=== PATIENT | male | born 1945 | race Caucasian/White ===

== ENCOUNTER → 2016-11-17 | Outpatient (CLI) | payer MEDICARE ==
[2016-11-17 11:42] LABS: Hemoglobin A1C 8.3 % (4.2-6.1)
== END | disposition home or self-care (01) ==
LOC: LABWHC1 09:15
PROVIDERS: ATTEND Family Medicine
DX: E11.65 Type 2 diabetes mellitus with hyperglycemia (principal)
CPT/HCPCS: 36415; 83036

== ENCOUNTER → 2017-03-12 | Outpatient (CLI) | payer MEDICARE ==
--- NOTE | 2017-03-12 16:34 | CT ---
EXAMINATION TYPE: CT brain wo con DATE OF EXAM: 03/12/2017 COMPARISON: NONE HISTORY: 71-year-old male confusion, significant weight loss TECHNIQUE: Examination was done in axial plane without intravenous contrast. Coronal and sagittal r econstructions performed. CT DLP: 1036.0 mGycm Automated exposure control for dose reduction was used. FINDINGS: There is no evidence of acute intracranial hemorrhage, acute ischemic changes, mass, mass-effect, or extra-axial fluid collection. There is no effacement of cerebral sulci or basal subarachnoid cister ns. There is no hydrocephalus. There is no midline shift. Dumont-white matter distinction is preserv ed. There is mild to moderate generalized cerebral cortical atrophy with moderate patchy periventricular and deep white matter hypodensities. Moderate mucosal thickening throughout the right maxillary sinus. Mastoid air cells well pneumatized. Orbits and globes appear intact. IMPRESSION: 1. No acute intracranial abnormality seen. 2. [id number] cerebral cortical atrophy and moderate patchy changes of chronic small vessel isc hemic disease. 3. Moderate chronic right maxillary sinus disease.
== END | disposition home or self-care (01) ==
LOC: RADCTMAIN 15:53
PROVIDERS: ATTEND Family Medicine
DX: G31.9 Degenerative disease of nervous system, unspecified (principal); G93.89 Other specified disorders of brain; J34.9 Unspecified disorder of nose and nasal sinuses
CPT/HCPCS: 70450

== ENCOUNTER → 2017-12-28 | Outpatient (CLI) | payer MEDICARE ==
[2017-12-28 11:41] LABS: Anion Gap 17 mmol/L; Blood Urea Nitrogen 34 mg/dL (9-20); Calcium 9.9 mg/dL (8.4-10.2); Carbon Dioxide 26 mmol/L (22-30); Chloride 102 mmol/L (98-107); Glucose 242 mg/dL (74-99); Potassium 5.2 mmol/L (3.5-5.1); Sodium 145 mmol/L (137-145)
[2017-12-28 12:17] LABS: PSA Annual Screen <0.10 ng/mL (0.00-4.00)
[2017-12-28 18:48] LABS: Hemoglobin A1C 6.3 % (4.0-6.0)
== END | disposition home or self-care (01) ==
LOC: LABWHC1 10:52
PROVIDERS: ATTEND Family Medicine
DX: C61 Malignant neoplasm of prostate (principal); E11.9 Type 2 diabetes mellitus without complications
CPT/HCPCS: 80048; 83036; 36415; G0103

== ENCOUNTER → 2018-04-02 | Outpatient (CLI) | payer MEDICARE ==
[2018-04-02 09:04] LABS: Albumin 4.1 g/dL (3.5-5.0); Calcium 9.4 mg/dL (8.4-10.2); Potassium 4.7 mmol/L (3.5-5.1); Total Bilirubin 0.5 mg/dL (0.2-1.3); Total Protein 6.7 g/dL (6.3-8.2)
== END | disposition home or self-care (01) ==
LOC: LABWHC1 08:08
PROVIDERS: ATTEND Family Medicine
DX: E78.5 Hyperlipidemia, unspecified (principal); E11.9 Type 2 diabetes mellitus without complications
CPT/HCPCS: 36415; 80053; 80061; 83036

== ENCOUNTER → 2018-04-25 | Outpatient (CLI) | payer MEDICARE ==
--- NOTE | 2018-04-25 11:09 | US ---
EXAMINATION TYPE: US kidneys/renal and bladder DATE OF EXAM: 04/25/2018 COMPARISON: NONE CLINICAL HISTORY: N18.3 Chronic kidney disease stage 3. EXAM MEASUREMENTS: Right Kidney: 11.4 x 4.9 x 5.7 cm Left Kidney: 11.0 x 5.5 x 5.5 cm Right Kidney: No hydronephrosis or masses seen Left Kidney: No hydronephrosis or masses seen Bladder: distended Bilateral Jets seen: Yes There is no evidence for hydronephrosis at this point in time. No nephrolithiasis is seen. No nestor s are identified. The urinary bladder is anechoic. Bilateral ureteral jets are seen. IMPRESSION: No hydronephrosis is evident bilaterally.
== END | disposition home or self-care (01) ==
LOC: RADUSWWP 09:45
PROVIDERS: ATTEND Family Medicine
DX: N18.3 Chronic kidney disease, stage 3 (moderate) (principal)
CPT/HCPCS: 76770

== ENCOUNTER → 2018-07-08 | Outpatient (CLI) | payer MEDICARE ==
[2018-07-08 12:02] LABS: Basophils % (A) 1 %; Eosinophils # (A) 0.5 k/uL (0-0.7); Eosinophils % (A) 7 %; HCT 36.3 % (39.0-53.0); HGB 11.9 gm/dL (13.0-17.5); Lymphocytes # (A) 0.9 k/uL (1.0-4.8); Lymphocytes % (A) 15 %; MCH 32.6 pg (25.0-35.0); MCHC 32.9 g/dL (31.0-37.0); MCV 99.1 fL (80.0-100.0); Mean Platelet Volume 8.6; Monocytes # (A) 0.3 k/uL (0-1.0); Monocytes % (A) 5 %; Neutrophils # (A) 4.5 k/uL (1.3-7.7); Neutrophils % (A) 71 %; Platelet Count 153 k/uL (150-450); RBC 3.66 m/uL (4.30-5.90); RDW 12.5 % (11.5-15.5); WBC 6.4 k/uL (3.8-10.6)
[2018-07-08 12:20] LABS: Anion Gap 10 mmol/L; Blood Urea Nitrogen 34 mg/dL (9-20); Calcium 9.2 mg/dL (8.4-10.2); Carbon Dioxide 26 mmol/L (22-30); Chloride 106 mmol/L (98-107); Glucose 322 mg/dL (74-99); Magnesium 1.9 mg/dL (1.6-2.3); Phosphorus 3.9 mg/dL (2.5-4.5); Potassium 4.7 mmol/L (3.5-5.1); Sodium 142 mmol/L (137-145); Uric Acid 5.2 mg/dL (3.5-8.5)
[2018-07-08 13:18] LABS: PSA Annual Screen <0.10 ng/mL (0.00-4.00)
[2018-07-08 17:10] LABS: Vitamin D 25 Hydroxy 33.2 ng/mL (30.0-100.0)
[2018-07-08 17:44] LABS: Parathyroid Hormone Intact 65.3 pg/mL (14.0-72.0)
[2018-07-08 18:47] LABS: Hemoglobin A1C 8.5 % (4.0-6.0)
== END | disposition home or self-care (01) ==
LOC: LABWHC1 10:06
PROVIDERS: ATTEND Family Medicine
DX: E11.65 Type 2 diabetes mellitus with hyperglycemia (principal); E11.22 Type 2 diabetes mellitus with diabetic chronic kidney disease; N18.3 Chronic kidney disease, stage 3 (moderate); C61 Malignant neoplasm of prostate
CPT/HCPCS: 80048; 83735; 84100; 84550; 85025; 82306; 83970; 82043; 82570; 83036; 36415; G0103

== ENCOUNTER → 2018-08-12 | Outpatient (CLI) | payer MEDICARE ==
[2018-08-12 11:35] LABS: HCT 35.1 % (39.0-53.0); HGB 11.7 gm/dL (13.0-17.5); MCHC 33.3 g/dL (31.0-37.0); Mean Platelet Volume 8.1; Platelet Count 157 k/uL (150-450); RBC 3.54 m/uL (4.30-5.90); RDW 12.5 % (11.5-15.5); WBC 6.6 k/uL (3.8-10.6)
[2018-08-12 11:52] LABS: Appearance,Urine Clear (Clear); Bilirubin,Urine Negative (Negative); Blood,Urine Small (Negative); Color,Urine Yellow; Glucose,Urine (UA) 4+ (Negative); Ketones,Urine Negative (Negative); Leukocyte Esterase,Urine Negative (Negative); Nitrite,Urine Negative (Negative); Protein,Urine 1+ (Negative); RBC,Urine 4 /hpf (0-5); Specific Gravity,Urine 1.015 (1.001-1.035); Squamous Epithelial Cell,Urine <1 /hpf (0-4); Urobilinogen,Urine <2.0 mg/dL (<2.0); WBC,Urine 3 /hpf (0-5)
[2018-08-12 16:18] LABS: Albumin 4.3 g/dL (3.80-4.90); Albumin/Globulin Ratio 2.05 (1.20-2.10); Anion Gap 5.8 mmol/L (4.00-12.00); Carbon Dioxide 26.2 mmol/L (21.6-31.8); Globulin 2.1 g/dL (2.1-3.7); Phosphorus 4.3 mg/dL (2.4-5.1); Potassium 4.4 mmol/L (3.5-5.5); Total Bilirubin 0.5 mg/dL (0.3-1.2); Total Protein 6.4 g/dL (6.2-8.2)
== END | disposition home or self-care (01) ==
LOC: LABWHC1 10:36
PROVIDERS: ATTEND Internal Medicine Nephrology
DX: D64.9 Anemia, unspecified (principal); E83.39 Other disorders of phosphorus metabolism; N39.0 Urinary tract infection, site not specified
CPT/HCPCS: 36415; 80053; 81001; 84100; 85027

== ENCOUNTER 2018-08-27 06:53 | Day surgery (SDC) | payer MEDICARE ==
[2018-08-26 12:18] VITALS: BMI 21.3
[~2018-08-27 06:53] MED LIST: LACTATED RINGERS 1,000 ML IV SCH; LIDOCAINE 1% 20 ML VIAL (10MG/ML) FOR IV START INTRADERMA PRN; MIDAZOLAM (PF) 2 MG/2 ML VIAL IV PRN
[2018-08-27 07:29] LABS: Glucose,Whole Blood 212 mg/dL (75-99)
[2018-08-27 07:30] VITALS: TEMP 98.7
[2018-08-27] MEDS ORDERED: PROPOFOL 10 MG/ML 20 ML VIAL IV ONE (07:54)
[2018-08-27] MEDS ORDERED: LIDOCAINE 1% INJ 10MG/ML (20 ML MDV) ONE (07:54)
--- NOTE | 2018-08-27 07:58 | P.GSHP ---
History of Present Illness H&P Date: 08/27/18 Chief Complaint: Screening colonoscopy This a 73-year-old male referred from Dr. Comer. Patient presents today for screening colonoscopy. She denies a significant GI complaints Past Medical History Past Medical History: Cancer, Diabetes Mellitus, Prostate Disorder, Renal Disease Additional Past Medical History / Comment(s): HX PROSTATE CANCER WITH SURGERY ( 2007), STATES DECREASED KIDNEY FUNCTION (SEEN DR REYES). History of Any Multi-Drug Resistant Organisms: None Reported Past Surgical History: Orthopedic Surgery, Prostate Surgery Additional Past Surgical History / Comment(s): SURGERY FOR RIGHT ANKLE & RIGHT LEG FX WITH PINS & PLATE (2009), CATARACTS. Past Anesthesia/Blood Transfusion Reactions: No Reported Reaction Past Psychological History: No Psychological Hx Reported Smoking Status: Never smoker Past Alcohol Use History: Rare Past Drug Use History: None Reported - Past Family History Mother Family Medical History: No Reported History Medications and Allergies Home Medications Medication Instructions Recorded Confirmed Type Aspirin [Adult Low Dose Aspirin EC] 81 mg PO DAILY 08/26/18 08/26/18 History Ibuprofen [Motrin Ib] 400 mg PO DIRECTED PRN 08/26/18 08/26/18 History Simvastatin [Zocor] 40 mg PO DAILY 08/26/18 08/27/18 History Telmisartan [Micardis] 80 mg PO DAILY 08/26/18 08/27/18 History amLODIPine [Norvasc] 5 mg PO AC-LUNCH 08/26/18 08/27/18 History glipiZIDE [Glucotrol] 10 mg PO 1130,1830 08/26/18 08/27/18 History sitaGLIPtin [Januvia] 50 mg PO AC-LUNCH 08/26/18 08/27/18 History Allergies Allergy/AdvReac Type Severity Reaction Status Date / Time Fish Containing Products Allergy Swelling Verified 08/27/18 07:09 [Fish] Sulfa (Sulfonamide Allergy Unknown Verified 08/27/18 07:09 Antibiotics) Childhood Surgical - Exam Vital Signs Temp Pulse Resp BP Pulse Ox 98.7 F 103 H 18 158/73 98 08/27/18 07:22 08/27/18 07:22 08/27/18 07:22 08/27/18 07:22 08/27/18 07:22 - General well developed, no distress - Eyes PERRL - ENT normal pinna - Neck no masses - Respiratory normal expansion - Cardiovascular Rhythm: regular - Abdomen Abdomen: soft, non tender Results - Labs Abnormal Lab Results - Last 24 Hours (Table) 08/27/18 Range/Units 07:26 POC Glucose (mg/dL) 212 H (75-99) mg/dL Assessment and Plan Assessment: We'll perform screening colonoscopy.
--- NOTE | 2018-08-27 08:03 | P.OP ---
Date of Procedure: 08/27/18 Preoperative Diagnosis: Screening colonoscopy Postoperative Diagnosis: Poor colonic preparation Procedure(s) Performed: Attempted colonoscopy Anesthesia: MAC Surgeon: Chirag Blackwell Pathology: none sent (Rishi) Condition: stable Disposition: PACU Description of Procedure: The patient's placed on the endoscopy table in the lateral position. He received IV sedation. Digital rectal exam was performed which revealed a large amount of solid stool in the rectum. The colonoscope was placed patient anus and passed the rectum. The large stool burden was seen. At this point the scope was withdrawn. The patient will need to be reprepped and brought back for colonoscopy.
[2018-08-27 08:24] LABS: Glucose,Whole Blood 224 mg/dL (75-99)
[2018-08-27 08:57] VITALS: PULSE 95; RESP 20
[2018-08-27 09:01] VITALS: BP 143/81
== END 2018-08-27 09:28 | disposition home or self-care (01) ==
LOC: ORWHC2ENDO 06:53
PROVIDERS: ATTEND Surgery
DX: Z12.11 Encounter for screening for malignant neoplasm of colon (principal); E11.9 Type 2 diabetes mellitus without complications; I10 Essential (primary) hypertension; E78.5 Hyperlipidemia, unspecified; Z79.82 Long term (current) use of aspirin; Z79.84 Long term (current) use of oral hypoglycemic drugs; Z85.46 Personal history of malignant neoplasm of prostate; Z88.2 Allergy status to sulfonamides; Z79.1 Long term (current) use of non-steroidal anti-inflammatories (NSAID)
CPT/HCPCS: J2001; J2704; G0104; 45378

== ENCOUNTER 2018-08-28 09:46 | Day surgery (SDC) | payer MEDICARE ==
[2018-08-28 10:18] LABS: Glucose,Whole Blood 216 mg/dL (75-99)
[2018-08-28 10:23] VITALS: TEMP 98.5
[2018-08-28] MEDS ORDERED: LACTATED RINGERS 1,000 ML IV ONE (10:23)
[2018-08-28] MEDS ORDERED: LIDOCAINE 1% 20 ML VIAL (10MG/ML) FOR IV START INTRADERMA ONE (10:23)
[2018-08-28] MEDS ORDERED: LIDOCAINE 1% INJ 10MG/ML (20 ML MDV) ONE (10:36)
[2018-08-28] MEDS ORDERED: PROPOFOL 10 MG/ML 20 ML VIAL IV ONE (10:36)
[2018-08-28] MEDS ORDERED: fentaNYL (PF) 50 MCG/ML 2 ML AMP ONE (10:36)
[2018-08-28] MEDS ORDERED: MIDAZOLAM 2 MG/2 ML VIAL ONE (10:36)
--- NOTE | 2018-08-28 10:47 | P.GSHP ---
History of Present Illness H&P Date: 08/28/18 Chief Complaint: Screening colonoscopy This is a 73-year-old male who presents today for colonoscopy. Patient had an attempted colonoscopy yesterday. However he was fully stool. Patient reprepped and presents today for colonoscopy. Past Medical History Past Medical History: Cancer, Diabetes Mellitus, Prostate Disorder Additional Past Medical History / Comment(s): PROSTATE History of Any Multi-Drug Resistant Organisms: None Reported Past Surgical History: Orthopedic Surgery, Prostate Surgery Additional Past Surgical History / Comment(s): RIGHT ANKLE, RIGHT LEG, RIGHT CATARACT Past Anesthesia/Blood Transfusion Reactions: No Reported Reaction Past Psychological History: No Psychological Hx Reported Smoking Status: Never smoker Past Alcohol Use History: Rare Past Drug Use History: None Reported - Past Family History Mother Family Medical History: No Reported History Medications and Allergies Home Medications Medication Instructions Recorded Confirmed Type Aspirin [Adult Low Dose Aspirin EC] 81 mg PO DAILY 08/26/18 08/28/18 History Ibuprofen [Motrin Ib] 400 mg PO DIRECTED PRN 08/26/18 08/28/18 History Simvastatin [Zocor] 40 mg PO DAILY 08/26/18 08/28/18 History Telmisartan [Micardis] 80 mg PO DAILY 08/26/18 08/28/18 History amLODIPine [Norvasc] 5 mg PO AC-LUNCH 08/26/18 08/28/18 History glipiZIDE [Glucotrol] 10 mg PO 1130,1830 08/26/18 08/28/18 History sitaGLIPtin [Januvia] 50 mg PO AC-LUNCH 08/26/18 08/28/18 History Allergies Allergy/AdvReac Type Severity Reaction Status Date / Time Fish Containing Products Allergy Swelling Verified 08/28/18 10:04 [Fish] Sulfa (Sulfonamide Allergy Unknown Verified 08/28/18 10:04 Antibiotics) Childhood Surgical - Exam Vital Signs Temp Pulse Resp BP Pulse Ox 98.5 F 113 H 18 141/65 97 08/28/18 10:21 08/28/18 10:21 08/28/18 10:21 08/28/18 10:21 08/28/18 10:21 - General well developed, no distress - Eyes PERRL - ENT normal pinna - Neck no masses - Respiratory normal expansion - Cardiovascular Rhythm: regular - Abdomen Abdomen: soft, non tender Results - Labs Abnormal Lab Results - Last 24 Hours (Table) 08/28/18 Range/Units 10:12 POC Glucose (mg/dL) 216 H (75-99) mg/dL Assessment and Plan Assessment: Constipation We'll perform screening colonoscopy.
[2018-08-28 11:03] VITALS: RESP 16
--- NOTE | 2018-08-28 11:09 | P.OP ---
Date of Procedure: 08/28/18 Preoperative Diagnosis: Screening colonoscopy Postoperative Diagnosis: Diverticulosis Procedure(s) Performed: Colonoscopy Anesthesia: MAC Surgeon: Chirag Blackwell Pathology: none sent Condition: stable Disposition: PACU Description of Procedure: The patient's placed on the endoscopy table in the lateral position. He received IV sedation. Digital rectal exam was performed which revealed no abnormalities. The flexible colonoscope was then placed patient anus passed throughout the entire colon. The ileocecal valve was visualized. Cecum, ascending and transverse colon appeared normal. In the descending and sigmoid colon there is moderate diverticular changes. Scope was then brought back the rectum and this appeared normal. Scope was withdrawn for patient.
[2018-08-28 11:17] VITALS: BP 123/72; PULSE 92
== END 2018-08-28 11:35 | disposition home or self-care (01) ==
LOC: ORWHC2ENDO 09:46
PROVIDERS: ATTEND Surgery
DX: Z12.11 Encounter for screening for malignant neoplasm of colon (principal); K57.30 Diverticulosis of large intestine without perforation or abscess without bleeding; E11.9 Type 2 diabetes mellitus without complications; N42.9 Disorder of prostate, unspecified; Z79.84 Long term (current) use of oral hypoglycemic drugs; Z79.82 Long term (current) use of aspirin; Z79.899 Other long term (current) drug therapy; Z88.2 Allergy status to sulfonamides; Z91.013 Allergy to seafood; Z85.9 Personal history of malignant neoplasm, unspecified
CPT/HCPCS: J2250; J2001; J3010; J2704; G0121

== ENCOUNTER → 2018-09-13 | Outpatient (CLI) | payer MEDICARE ==
[2018-09-13 12:45] LABS: Basophils % (A) 1 %; Eosinophils # (A) 0.2 k/uL (0-0.7); Eosinophils % (A) 4 %; HCT 36.7 % (39.0-53.0); HGB 12.1 gm/dL (13.0-17.5); Lymphocytes # (A) 0.9 k/uL (1.0-4.8); Lymphocytes % (A) 17 %; MCH 32.6 pg (25.0-35.0); MCHC 33.1 g/dL (31.0-37.0); MCV 98.6 fL (80.0-100.0); Mean Platelet Volume 8.6; Monocytes # (A) 0.3 k/uL (0-1.0); Monocytes % (A) 6 %; Neutrophils # (A) 3.7 k/uL (1.3-7.7); Neutrophils % (A) 72 %; Platelet Count 180 k/uL (150-450); RBC 3.72 m/uL (4.30-5.90); RDW 12.8 % (11.5-15.5); WBC 5.1 k/uL (3.8-10.6)
[2018-09-13 13:01] LABS: Appearance,Urine Cloudy (Clear); Bilirubin,Urine Negative (Negative); Blood,Urine Small (Negative); Color,Urine Yellow; Glucose,Urine (UA) 1+ (Negative); Ketones,Urine Negative (Negative); Leukocyte Esterase,Urine Negative (Negative); Mucus,Urine Rare /hpf; Nitrite,Urine Negative (Negative); PH, Urine 5.5 (5.0-8.0); Protein,Urine 2+ (Negative); RBC,Urine 9 /hpf (0-5); Specific Gravity,Urine 1.016 (1.001-1.035); Urobilinogen,Urine <2.0 mg/dL (<2.0); WBC,Urine <1 /hpf (0-5)
[2018-09-13 18:54] LABS: Protein, Total 6.2 g/dL (6.2-8.2)
[2018-09-13 19:08] LABS: Parathyroid Hormone Intact 123.8 pg/mL (14.0-72.0)
[2018-09-13 19:15] LABS: Albumin 4.3 g/dL (3.80-4.90); Anion Gap 10.5 mmol/L (4.00-12.00); Calcium 8.8 mg/dL (8.7-10.3); Carbon Dioxide 23.5 mmol/L (21.6-31.8); Phosphorus 3.9 mg/dL (2.4-5.1); Potassium 4.4 mmol/L (3.5-5.5); Uric Acid 5.9 mg/dL (3.7-8.7)
[2018-09-13 19:18] LABS: Iron Saturation 23.78 (15.00-50.00)
[2018-09-13 19:32] LABS: Vitamin D 25 Hydroxy 30.5 ng/mL (30.0-100.0)
[2018-09-13 19:38] LABS: Anti-DNA, DS unit <1.0 IU/mL; DNA Double-Stranded NEGATIVE (NEGATIVE)
[2018-09-13 20:25] LABS: Hepatitis C IgG Antibody Non-Reactive (Non-Reactive)
[2018-09-13 20:28] LABS: Creatinine,Urine Random 204.8 mg/dL
[2018-09-13 20:44] LABS: Total Protein,Urine Random 103.1 mg/dL (0.0-13.5)
[2018-09-14 01:57] LABS: Total Volume 24 Hour,Urine 800 mL
[2018-09-14 02:14] LABS: Total Protein 24 Hour,Urine 345.6 mg/24Hr
== END ==
LOC: LABWHC1 12:06
PROVIDERS: ATTEND Internal Medicine Nephrology
DX: E55.9 Vitamin D deficiency, unspecified (principal); E21.3 Hyperparathyroidism, unspecified; N18.4 Chronic kidney disease, stage 4 (severe); R80.9 Proteinuria, unspecified; R53.83 Other fatigue; D63.1 Anemia in chronic kidney disease; M10.9 Gout, unspecified
CPT/HCPCS: 36415; 80048; 81001; 81050; 82040; 82306; 82570; 82728; 83516; 83540; 83550; 83735; 83970; 84100; 84156; 84165; 84550; 85025; 86038; 86160; 86162; 86225; 86255; 86335; 86803; 87340

== ENCOUNTER → 2018-10-18 | Outpatient (CLI) | payer MEDICARE ==
[2018-10-18 17:35] LABS: Hemoglobin A1C 7.2 % (4.0-6.0)
[2018-10-18 17:44] LABS: Albumin 4.2 g/dL (3.80-4.90); Albumin/Globulin Ratio 2.1 (1.60-3.17); Anion Gap 12.2 mmol/L (4.00-12.00); Calcium 9.1 mg/dL (8.7-10.3); Carbon Dioxide 23.8 mmol/L (21.6-31.8); LDL Cholesterol,Calculated 45.6 mg/dL (0.0-131.0); Potassium 4.8 mmol/L (3.5-5.5); Total Bilirubin 0.7 mg/dL (0.2-1.2); Total Protein 6.2 g/dL (6.2-8.2); VLDL Calculation 14.4 mg/dL (5.00-40.00)
== END | disposition home or self-care (01) ==
LOC: LABWHC1 08:54
PROVIDERS: ATTEND Family Medicine
DX: E78.5 Hyperlipidemia, unspecified (principal); E11.65 Type 2 diabetes mellitus with hyperglycemia
CPT/HCPCS: 36415; 80053; 80061; 83036

== ENCOUNTER 2018-11-28 18:51 | Inpatient (IN) | payer MEDICARE ==
[2018-11-28] MEDS ORDERED: IPRATROPIUM-ALBUTEROL 3 ML NEB INHALATION STA (19:09)
--- NOTE | 2018-11-28 19:10 | ED ---
SOB HPI - General Chief Complaint: Shortness of Breath Stated Complaint: CHF/leg swelling Time Seen by Provider: 11/28/18 19:07 Source: patient, family, RN notes reviewed, old records reviewed Mode of arrival: wheelchair Limitations: no limitations - History of Present Illness Initial Comments: This is a 73-year-old male the ER for evaluation. This patient presents for evaluation regarding shortness of breath. Significant for shortness of breath of lower extremity edema. Exertional shortness of breath and dyspnea. No fever cough or congestion. History of heart failure diabetes and hypertension. Patient denies current chest pain. No pain in his legs just swelling. 's, no travel history or sick contacts MD Complaint: shortness of breath -: days(s) Radiation: other (No pain) Severity: moderate Severity scale (1-10): 5 Consistency: constant Improves With: rest Worsens With: exertion, movement Known History Of: congestive heart failure Associated Symptoms: cough, orthopnea Treatments Prior to Arrival: none - Related Data Home Medications Medication Instructions Recorded Confirmed Aspirin [Adult Low Dose Aspirin EC] 81 mg PO DAILY 08/26/18 08/28/18 Ibuprofen [Motrin Ib] 400 mg PO DIRECTED PRN 08/26/18 08/28/18 Simvastatin [Zocor] 40 mg PO DAILY 08/26/18 08/28/18 Telmisartan [Micardis] 80 mg PO DAILY 08/26/18 08/28/18 amLODIPine [Norvasc] 5 mg PO AC-LUNCH 08/26/18 08/28/18 glipiZIDE [Glucotrol] 10 mg PO 1130,1830 08/26/18 08/28/18 sitaGLIPtin [Januvia] 50 mg PO AC-LUNCH 08/26/18 08/28/18 Allergies Allergy/AdvReac Type Severity Reaction Status Date / Time Fish Containing Products Allergy Swelling Verified 11/28/18 19:01 [Fish] Sulfa (Sulfonamide Allergy Unknown Verified 11/28/18 19:01 Antibiotics) Childhood Review of Systems ROS Statement: Those systems with pertinent positive or pertinent negative responses have been documented in the HPI. ROS Other: All systems not noted in ROS Statement are negative. Past Medical History Past Medical History: Cancer, Heart Failure, Diabetes Mellitus, Hypertension, Prostate Disorder Additional Past Medical History / Comment(s): PROSTATE History of Any Multi-Drug Resistant Organisms: None Reported Past Surgical History: Orthopedic Surgery, Prostate Surgery Additional Past Surgical History / Comment(s): RIGHT ANKLE, RIGHT LEG, RIGHT CATARACT Past Anesthesia/Blood Transfusion Reactions: No Reported Reaction Past Psychological History: No Psychological Hx Reported Smoking Status: Never smoker Past Alcohol Use History: Rare Past Drug Use History: None Reported - Past Family History Mother Family Medical History: No Reported History General Exam Limitations: no limitations General appearance: alert, in no apparent distress, anxious Head exam: Present: atraumatic, normocephalic, normal inspection Eye exam: Present: normal appearance, PERRL, EOMI. Absent: scleral icterus, conjunctival injection, periorbital swelling ENT exam: Present: normal exam, mucous membranes moist Neck exam: Present: normal inspection. Absent: tenderness, meningismus, lymphadenopathy Respiratory exam: Present: normal lung sounds bilaterally, wheezes, rales, accessory muscle use, decreased breath sounds, prolonged expiratory. Absent: respiratory distress, rhonchi, stridor Cardiovascular Exam: Present: normal rhythm, tachycardia, normal heart sounds. Absent: systolic murmur, diastolic murmur, rubs, gallop, clicks GI/Abdominal exam: Present: soft, normal bowel sounds. Absent: distended, tenderness, guarding, rebound, rigid Extremities exam: Present: normal inspection, full ROM, normal capillary refill. Absent: tenderness, pedal edema, joint swelling, calf tenderness Back exam: Present: normal inspection Neurological exam: Present: alert, oriented X3, CN II-XII intact Psychiatric exam: Present: normal affect, normal mood Skin exam: Present: warm, dry, intact, normal color. Absent: rash Course Vital Signs 11/28/18 11/28/18 11/28/18 19:01 19:20 19:40 Temperature 97.9 F Pulse Rate 110 H 89 91 Respiratory 24 22 20 Rate Blood Pressure 138/81 O2 Sat by Pulse 95 Oximetry - Reevaluation(s) Reevaluation #1: 11/28/18 20:07 Medical record is reviewed Reevaluation #2: 11/28/18 20:07 Patient has no significant improvement after breathing treatment Medical Decision Making - Medical Decision Making 73 male to be evaluated. Patient does say for evaluation regards to shortness of breath. Patient has significant CHF exacerbation. Would be admitted for cardiac observation - Lab Data Result diagrams: 11/28/18 19:18 11/28/18 19:18 Lab Results 11/28/18 11/28/18 11/28/18 Range/Units 19:18 19:18 19:18 WBC 6.4 (3.8-10.6) k/uL RBC 3.96 L (4.30-5.90) m/uL Hgb 12.7 L (13.0-17.5) gm/dL Hct 39.2 (39.0-53.0) % MCV 99.2 (80.0-100.0) fL MCH 32.2 (25.0-35.0) pg MCHC 32.4 (31.0-37.0) g/dL RDW 14.3 (11.5-15.5) % Plt Count 163 (150-450) k/uL Neutrophils % 71 % Lymphocytes % 17 % Monocytes % 7 % Eosinophils % 2 % Basophils % 0 % Neutrophils # 4.6 (1.3-7.7) k/uL Lymphocytes # 1.1 (1.0-4.8) k/uL Monocytes # 0.5 (0-1.0) k/uL Eosinophils # 0.2 (0-0.7) k/uL Basophils # 0.0 (0-0.2) k/uL Hypochromasia Slight Macrocytosis Slight PT 12.2 H (9.0-12.0) sec INR 1.2 H (<1.2) APTT 22.8 (22.0-30.0) sec D-Dimer 1.07 H (<0.60) mg/L FEU Sodium 137 (137-145) mmol/L Potassium 4.5 (3.5-5.1) mmol/L Chloride 101 (98-107) mmol/L Carbon Dioxide 26 (22-30) mmol/L Anion Gap 10 mmol/L BUN 38 H (9-20) mg/dL Creatinine 2.25 H (0.66-1.25) mg/dL Est GFR (CKD-EPI)AfAm 33 (>60 ml/min/1.73 sqM) Est GFR (CKD-EPI)NonAf 28 (>60 ml/min/1.73 sqM) Glucose 268 H (74-99) mg/dL Calcium 9.3 (8.4-10.2) mg/dL Magnesium 2.1 (1.6-2.3) mg/dL Total Bilirubin 0.8 (0.2-1.3) mg/dL AST 24 (17-59) U/L ALT 48 (21-72) U/L Alkaline Phosphatase 106 (38-126) U/L Total Protein 6.4 (6.3-8.2) g/dL Albumin 3.8 (3.5-5.0) g/dL - EKG Data -: EKG Interpreted by Me (EKG shows sinus tachycardia rate of 103, MT 180, QRS 72, QTc 468) - Radiology Data Radiology results: report reviewed (chest x-ray positive for CHF), image reviewed Disposition Clinical Impression: Congestive heart failure, Acute pulmonary edema Disposition: ADMITTED IP TO THIS HOSP Condition: Fair Is patient prescribed a controlled substance at d/c from ED?: No Referrals: Violeta Comer MD [Primary Care Provider] - 1-2 days
[2018-11-28 19:35] LABS: Basophils % (A) 0 %; Eosinophils # (A) 0.2 k/uL (0-0.7); Eosinophils % (A) 2 %; HCT 39.2 % (39.0-53.0); HGB 12.7 gm/dL (13.0-17.5); Hypochromasia Slight; Lymphocytes # (A) 1.1 k/uL (1.0-4.8); Lymphocytes % (A) 17 %; MCH 32.2 pg (25.0-35.0); MCHC 32.4 g/dL (31.0-37.0); MCV 99.2 fL (80.0-100.0); Macrocytosis Slight; Mean Platelet Volume 8.7; Monocytes # (A) 0.5 k/uL (0-1.0); Monocytes % (A) 7 %; Neutrophils # (A) 4.6 k/uL (1.3-7.7); Neutrophils % (A) 71 %; Platelet Count 163 k/uL (150-450); RBC 3.96 m/uL (4.30-5.90); RDW 14.3 % (11.5-15.5); WBC 6.4 k/uL (3.8-10.6)
[2018-11-28 19:45] LABS: Albumin 3.8 g/dL (3.5-5.0); Calcium 9.3 mg/dL (8.4-10.2); Magnesium 2.1 mg/dL (1.6-2.3); Potassium 4.5 mmol/L (3.5-5.1); Total Bilirubin 0.8 mg/dL (0.2-1.3); Total Protein 6.4 g/dL (6.3-8.2)
[2018-11-28 19:48] LABS: INR 1.2 (<1.2); Partial Thromboplastin Time 22.8 sec (22.0-30.0); Prothrombin Time 12.2 sec (9.0-12.0)
--- NOTE | 2018-11-28 19:48 | XR ---
EXAMINATION TYPE: XR chest 2V DATE OF EXAM: 11/28/2018 COMPARISON: NONE HISTORY: Short of breath TECHNIQUE: Frontal and lateral views of the chest are obtained. FINDINGS: Heart is enlarged. There is pulmonary vascular congestion. There is blunting of costophren ic angles. There are chest leads. IMPRESSION: Cardiomegaly. There is evidence of mild heart failure.
[2018-11-28 19:59] LABS: D-Dimer 1.07 mg/L FEU (<0.60)
[2018-11-28] MEDS ORDERED: ASPIRIN 325 MG TAB PO STA (20:08)
--- NOTE | 2018-11-28 20:53 | US ---
EXAMINATION TYPE: US venous doppler duplex LE DATE OF EXAM: 11/28/2018 8:35 PM COMPARISON: NONE CLINICAL HISTORY: Pain. Swellilng. SIDE PERFORMED: Bilateral TECHNIQUE: The lower extremity deep venous system is examined utilizing real time linear array sonog abril with graded compression, doppler sonography and color-flow sonography. VESSELS IMAGED: External Iliac Vein (EIV) Common Femoral Vein Deep Femoral Vein Greater Saphenous Vein * Femoral Vein Popliteal Vein Small Saphenous Vein * Proximal Calf Veins (* superficial vessels) Right Leg: Negative for DVT Left Leg: Negative for DVT No evidence of DVT bilateral legs. IMPRESSION: Negative exam. No evidence of deep venous thrombosis.
[2018-11-28 22:51] LABS: Glucose,Whole Blood 298 mg/dL (75-99)
--- NOTE | 2018-11-28 23:27 | P.HPIM ---
History of Present Illness H&P Date: 11/28/18 The patient is a 73-year-old male with a PMH of type II DM, hypertension, hyperlipidemia, and CKD stage III who presented to the ED for gradually worsening shortness of breath. The patient was accompanied by his who is a retired RN and supplemented the history. He notes that over the past few weeks, he noticed worsening exercise tolerance, and increasing lower extremity edema. He would get short of breath with minimal exertion and endorsed a nonproductive cough along with orthopnea, and currently sleeps with 3 pillows. The patient notes that he has never had such symptoms before and was never diagnosed with CHF. He otherwise denied fever, chills, calf pain, recent travel, nausea, vo miting, chest pain, palpitations, sick contacts, headache, visual changes, abdominal pain, or diarrhea. In the emergency room, the patient underwent a comprehensive workup, with WBC count 6.4, hemoglobin 12.7, troponins elevated at 0.048, BNP significantly elevated at 32,700, BUN 38, and creatinine 2.25 with a baseline of 2.3. Chest x-ray revealed cardiomegaly with pulmonary venous congestion. Review of Systems Pertinent positives and negatives as discussed in HPI, a complete review of systems was performed and all other systems are negative. Past Medical History Past Medical History: Cancer, Diabetes Mellitus, Hyperlipidemia, Hypertension, Prostate Disorder, Renal Disease Additional Past Medical History / Comment(s): Prostate cancer with surgery in 2007, Patient states he has issues with his kidney's and has been seeing doctor Mason since August 2018. History of Any Multi-Drug Resistant Organisms: None Reported Past Surgical History: Orthopedic Surgery, Prostate Surgery Additional Past Surgical History / Comment(s): RIGHT ANKLE 2009, Bilateral Cataract 2016, Colonoscopy August 2018, Prostate surgery 2007 Past Anesthesia/Blood Transfusion Reactions: No Reported Reaction Past Psychological History: No Psychological Hx Reported Smoking Status: Never smoker Past Alcohol Use History: Rare Past Drug Use History: None Reported - Past Family History Mother Family Medical History: No Reported History Additional Family Medical History / Comment(s): CHF Father Family Medical History: No Reported History Additional Family Medical History / Comment(s): Patient states father from a massive heart attack. Medications and Allergies Home Medications Medication Instructions Recorded Confirmed Type Simvastatin [Zocor] 40 mg PO DAILY 08/26/18 11/28/18 History amLODIPine [Norvasc] 5 mg PO DAILY 08/26/18 11/28/18 History glipiZIDE [Glucotrol] 10 mg PO BID 08/26/18 11/28/18 History sitaGLIPtin [Januvia] 50 mg PO DAILY 08/26/18 11/28/18 History Ergocalciferol [Vitamin D2] 50,000 unit PO Q14D 11/28/18 11/28/18 History Sodium Chloride [Saline Nasal 1 spray EA NOSTRIL DAILY PRN 11/28/18 11/28/18 History [place]] Telmisartan [Micardis] 40 mg PO DAILY 11/28/18 11/28/18 History Allergies Allergy/AdvReac Type Severity Reaction Status Date / Time Fish Containing Products Allergy Swelling Verified 11/28/18 20:24 [Fish] Sulfa (Sulfonamide Allergy Unknown Verified 11/28/18 20:24 Antibiotics) Childhood Physical Exam Vitals: Vital Signs Temp Pulse Resp BP Pulse Ox 11/28/18 22:18 105 H 28 H 171/95 96 11/28/18 21:10 105 H 18 145/93 96 11/28/18 19:40 91 20 11/28/18 19:20 89 22 11/28/18 19:01 97.9 F 110 H 24 138/81 95 Intake and Output 11/28/18 11/28/18 11/28/18 06:59 14:59 22:59 Other: Weight 70.307 kg General: non toxic, in mild distress, appears at stated age, normal weight Derm: no unusual rashes/lesions no unusual ecchymoses, warm, dry Head: atraumatic, normocephalic, symmetric Eyes: EOMI, no lid lag, anicteric sclera, pupils equal round reactive to light ENT: Nose and ears atraumatic, no thrush, no pharyngeal erythema Neck: No thyromegaly, no cervical lymphadenopathy, trachea midline, supple Mouth: no lip lesion, mucus membranes moist Cardiovascular: S1S2 reg, no murmur, positive posterior tibial pulse bilateral, 2+ pitting edema hari to thighs, capillary refill less than 2 seconds Lungs: Bilateral rales diffusely, no ronchi or other coarse breath sounds appreciated, no wheezing, no accessory muscle use Abdominal: soft, nontender to palpation, no guarding, no appreciable organomegaly, normal bowel sounds Ext: no gross muscle atrophy, muscle strength 5 out of 5 in all 4 extremities grossly, no contractures, Neuro: CN II-XI grossly intact, light touch intact all 4 extremities, finger to nose within normal limits, Psych: Alert, oriented, appropriate affect Results CBC & Chem 7: 11/28/18 19:18 11/28/18 19:18 Labs: Abnormal Lab Results - Last 24 Hours (Table) 11/28/18 11/28/18 11/28/18 Range/Units 19:18 19:18 19:18 RBC 3.96 L (4.30-5.90) m/uL Hgb 12.7 L (13.0-17.5) gm/dL PT 12.2 H (9.0-12.0) sec INR 1.2 H (<1.2) D-Dimer 1.07 H (<0.60) mg/L FEU BUN 38 H (9-20) mg/dL Creatinine 2.25 H (0.66-1.25) mg/dL Glucose 268 H (74-99) mg/dL POC Glucose (mg/dL) (75-99) mg/dL Troponin I (0.000-0.034) ng/mL 11/28/18 11/28/18 Range/Units 19:18 22:49 RBC (4.30-5.90) m/uL Hgb (13.0-17.5) gm/dL PT (9.0-12.0) sec INR (<1.2) D-Dimer (<0.60) mg/L FEU BUN (9-20) mg/dL Creatinine (0.66-1.25) mg/dL Glucose (74-99) mg/dL POC Glucose (mg/dL) 298 H (75-99) mg/dL Troponin I 0.048 H* (0.000-0.034) ng/mL Thrombosis Risk Factor Assmnt - Choose All That Apply Any of the Below Risk Factors Present?: Yes Each Factor Represents 1 point: Heart failure (<1month), Swollen legs (current) Other Risk Factors: Yes Each Risk Factor Represents 2 Points: Age 61-74 years Thrombosis Risk Factor Assessment Total Risk Factor Score: 4 Thrombosis Risk Factor Assessment Level: Moderate Risk Assessment and Plan Plan: Fluid overload, likely newly diagnosed CHF, in acute exacerbation -CXR w/ cardiomegaly, BNP elevated -Order Echocardiogram -Cardiology consult -Lasix 40 mg IV every 8 hourly -Cardiac monitoring -Intake and output -Daily weights -Daily BMP Troponin elevation, likely in setting of acute CHF exacerbation -Trend troponin -Cardiac monitoring -Cardiology consult CKD stage III -Monitor BMP -Avoid nephrotoxic agents Diabetes mellitus -Lispro insulin sliding scale w/ fingersticks -Levemir 10 U qhs Hypertension -Resume home meds Hyperlipidemia -Resume home meds DVT//GI prophylaxis -Heparin -No indication for GI prophy. The patient is admitted with an anticipated less than 2 midnight stay for evaluation of acute CHF exacerbation. CODE STATUS: Full Code Discussed with: Patient, daughter Anticipated discharge date: 11/30/[address]: Home A total of 55 minutes was spent on the care of this complex patient more than 50% of the time was spent in counseling and care coordination.
[2018-11-28 23:53] LABS: Appearance,Urine Clear (Clear); Bilirubin,Urine Negative (Negative); Blood,Urine Trace (Negative); Color,Urine Light Yellow; Glucose,Urine (UA) Trace (Negative); Ketones,Urine Negative (Negative); Leukocyte Esterase,Urine Negative (Negative); Nitrite,Urine Negative (Negative); Protein,Urine 1+ (Negative); RBC,Urine 1 /hpf (0-5); Specific Gravity,Urine 1.007 (1.001-1.035); Squamous Epithelial Cell,Urine <1 /hpf (0-4); Urobilinogen,Urine <2.0 mg/dL (<2.0)
[2018-11-28] MEDS: INSULIN DETEMIR (LEVEMIR) 100 UNIT/ML SYR SQ SCH (23:53)
[2018-11-28] MEDS: HEPARIN SODIUM,PORCINE 5,000 UNIT/ML 1 ML VIAL SQ SCH (23:53)
[2018-11-29 02:18] LABS: Glucose,Whole Blood 278 mg/dL (75-99)
[2018-11-29 06:13] LABS: Glucose,Whole Blood 169 mg/dL (75-99)
[2018-11-29] MEDS: INSULIN ASPART (NovoLOG) 100 UNIT/ML VIAL SQ SCH ×4 (06:24→21:41)
[2018-11-29 07:17] LABS: HCT 39.7 % (39.0-53.0); HGB 12.1 gm/dL (13.0-17.5); Hypochromasia Slight; MCH 30.6 pg (25.0-35.0); MCHC 30.4 g/dL (31.0-37.0); MCV 100.5 fL (80.0-100.0); Macrocytosis Slight; Mean Platelet Volume 9.4; Platelet Count 142 k/uL (150-450); RBC 3.95 m/uL (4.30-5.90); WBC 6.7 k/uL (3.8-10.6)
[2018-11-29] MEDS ORDERED: INSULIN ASPART (NovoLOG) 100 UNIT/ML VIAL SQ SCH (07:30)
[2018-11-29 07:35] LABS: Calcium 9.6 mg/dL (8.4-10.2); Potassium 4.6 mmol/L (3.5-5.1)
[2018-11-29] MEDS ORDERED: LOSARTAN 50 MG TAB PO SCH (09:00)
[2018-11-29] MEDS: amLODIPine 5 MG TAB PO SCH (09:00)
[2018-11-29] MEDS: HEPARIN SODIUM,PORCINE 5,000 UNIT/ML 1 ML VIAL SQ SCH ×3 (09:00→23:17)
[2018-11-29] MEDS: FUROSEMIDE 10 MG/ML 4 ML VIAL IV SCH ×3 (09:00→23:17)
[2018-11-29] MEDS ORDERED: ENOXAPARIN 30 MG/0.3 ML SYRINGE SQ SCH (09:00)
[2018-11-29] MEDS: ASPIRIN 325 MG TAB PO SCH (09:00)
[2018-11-29] MEDS: ATORVASTATIN 20 MG TAB PO SCH (09:00)
--- NOTE | 2018-11-29 10:49 | P.CRDCN ---
History of Present Illness Consult date: 11/29/18 History of present illness: This is a 73-year-old gentleman with history of type 2 diabetes mellitus, hypertension, hyperlipidemia and also renal failure who was admitted to the hospital with complaints of increasing shortness of breath and swelling in the legs. Denied any chest pain. It appears that patient has been short of breath with minimal exertion and also has been using 3 pillows at night. He denied any fever or chills. His EKG showed sinus rhythm with evidence of old anteroseptal myocardial infarction. Chest x-ray showed cardiomegaly and evidence of CHF. His proBNP is elevated. His echocardiogram showed some generalized hypokinesia of severe degree with akinesis and thinning of the anteroapical segments suggestive of previous myocardial infarction. No significant valvular abnormalities are noted. There is moderate pericardial effusion. His creatinine has been going up gradually and is up to more than 2 at this time. Patient has been IV diuretics. I'm going to start him on by mouth hydralazine and Imdur and also IV dobutamine along with Lasix. Nephrology consult is requested. Further recommendations depend upon the clinical course. Prognosis is guarded. His ejection fraction is about less than 20% Review of Systems As per the chart Past Medical History Past Medical History: Cancer, Diabetes Mellitus, Hyperlipidemia, Hypertension, Prostate Disorder, Renal Disease Additional Past Medical History / Comment(s): Prostate cancer with surgery in 2007, Patient states he has issues with his kidney's and has been seeing doctor Mason since August 2018. History of Any Multi-Drug Resistant Organisms: None Reported Past Surgical History: Orthopedic Surgery, Prostate Surgery Additional Past Surgical History / Comment(s): RIGHT ANKLE 2009, Bilateral Cataract 2016, Colonoscopy August 2018, Prostate surgery 2007 Past Anesthesia/Blood Transfusion Reactions: No Reported Reaction Past Psychological History: No Psychological Hx Reported Smoking Status: Never smoker Past Alcohol Use History: Rare Past Drug Use History: None Reported - Past Family History Mother Family Medical History: No Reported History Additional Family Medical History / Comment(s): CHF Father Family Medical History: No Reported History Additional Family Medical History / Comment(s): Patient states father from a massive heart attack. Medications and Allergies Home Medications Medication Instructions Recorded Confirmed Type Simvastatin [Zocor] 40 mg PO DAILY 08/26/18 11/28/18 History amLODIPine [Norvasc] 5 mg PO DAILY 08/26/18 11/28/18 History glipiZIDE [Glucotrol] 10 mg PO BID 08/26/18 11/28/18 History sitaGLIPtin [Januvia] 50 mg PO DAILY 08/26/18 11/28/18 History Ergocalciferol [Vitamin D2] 50,000 unit PO Q14D 11/28/18 11/28/18 History Sodium Chloride [Saline Nasal 1 spray EA NOSTRIL DAILY PRN 11/28/18 11/28/18 History [place]] Telmisartan [Micardis] 40 mg PO DAILY 11/28/18 11/28/18 History Allergies Allergy/AdvReac Type Severity Reaction Status Date / Time Fish Containing Products Allergy Swelling Verified 11/28/18 20:24 [Fish] Sulfa (Sulfonamide Allergy Unknown Verified 11/28/18 20:24 Antibiotics) Childhood Physical Exam Vitals: Vital Signs Temp Pulse Pulse Resp BP BP Pulse Ox 11/29/18 09:04 96.4 F L 94 18 135/75 94 L 11/29/18 03:12 97.4 F L 103 H 19 134/84 94 L 11/29/18 00:00 98.2 F 104 H 18 140/89 96 11/28/18 22:18 105 H 28 H 171/95 96 11/28/18 21:10 105 H 18 145/93 96 11/28/18 19:40 91 20 11/28/18 19:20 89 22 11/28/18 19:01 97.9 F 110 H 24 138/81 95 Intake and Output 11/28/18 11/29/18 11/29/18 22:59 06:59 14:59 Intake Total 0 Output Total 150 600 Balance -150 -600 0 Intake: Oral 0 Output: Urine 150 600 Other: Voiding Method Urinal Urinal Diaper Diaper Incontinent Incontinent # Voids 3 Weight 70.307 kg 67 kg 67 kg GENERAL EXAM: Patient is alert and oriented and in mild to moderate respiratory distress HEENT: Normocephalic. Normal reaction of pupils, equal size, normal range of extraocular motion. No erythema or exudates in the throat. NECK: No masses, no nuchal rigidity. Increased JVD CHEST: No chest wall deformity. LUNGS: Diminished breath sounds at bases HEART: S1 and S2 normal ABDOMEN: No hepatosplenomegaly, normal bowel sounds, no guarding or rigidity. SKIN: No rashes CENTRAL NERVOUS SYSTEM: No focal deficits. EXTREMITIES: Significant bilateral edema Results 11/29/18 06:42 11/29/18 06:42 Cardiac Enzymes 11/28/18 11/28/18 11/29/18 Range/Units 19:18 19:18 00:45 AST 24 (17-59) U/L Troponin I 0.048 H* 0.060 H* (0.000-0.034) ng/mL 11/29/18 Range/Units 06:42 AST (17-59) U/L Troponin I 0.131 H* (0.000-0.034) ng/mL Coagulation 11/28/18 Range/Units 19:18 PT 12.2 H (9.0-12.0) sec APTT 22.8 (22.0-30.0) sec CBC 11/28/18 11/29/18 Range/Units 19:18 06:42 WBC 6.4 6.7 (3.8-10.6) k/uL RBC 3.96 L 3.95 L (4.30-5.90) m/uL Hgb 12.7 L 12.1 L (13.0-17.5) gm/dL Hct 39.2 39.7 (39.0-53.0) % Plt Count 163 142 L (150-450) k/uL Comprehensive Metabolic Panel 11/28/18 11/29/18 Range/Units 19:18 06:42 Sodium 137 141 (137-145) mmol/L Potassium 4.5 4.6 (3.5-5.1) mmol/L Chloride 101 104 (98-107) mmol/L Carbon Dioxide 26 28 (22-30) mmol/L BUN 38 H 39 H (9-20) mg/dL Creatinine 2.25 H 2.34 H (0.66-1.25) mg/dL Glucose 268 H 100 H (74-99) mg/dL Calcium 9.3 9.6 (8.4-10.2) mg/dL AST 24 (17-59) U/L ALT 48 (21-72) U/L Alkaline Phosphatase 106 (38-126) U/L Total Protein 6.4 (6.3-8.2) g/dL Albumin 3.8 (3.5-5.0) g/dL Current Medications Generic Name Dose Route Start Last Admin Trade Name Freq PRN Reason Stop Dose Admin Amlodipine Besylate 5 mg 11/29/18 09:00 11/29/18 09:00 Norvasc PO 5 mg DAILY TATA Administration Aspirin 325 mg 11/29/18 09:00 11/29/18 09:00 Aspirin PO 325 mg DAILY TATA Administration Atorvastatin Calcium 20 mg 11/29/18 09:00 11/29/18 09:00 Lipitor PO 20 mg DAILY TATA Administration Furosemide 40 mg 11/29/18 09:00 11/29/18 09:00 Lasix IV 40 mg Q8H TATA Administration Heparin Sodium (Porcine) 5,000 unit 11/29/18 00:00 11/29/18 09:00 Heparin SQ 5,000 unit Q8HR TATA Administration Hydralazine HCl 25 mg 11/29/18 10:45 Apresoline PO BID TATA Dobutamine HCl/Dextrose 500 mg 250 mls @ 10.05 mls/hr 11/29/18 10:45 / IV Solution IV .Q24H TATA 5 MCG/KG/MIN Insulin Aspart 0 unit 11/29/18 07:30 11/29/18 06:24 Novolog SQ 2 unit ACHS TATA Administration Protocol Insulin Detemir 10 unit 11/28/18 23:18 11/28/18 23:53 Levemir SQ 10 unit HS TATA Administration Isosorbide Mononitrate 15 mg 11/29/18 10:45 Imdur PO DAILY TATA Intake and Output 11/28/18 11/29/18 11/29/18 22:59 06:59 14:59 Intake Total 0 Output Total 150 600 Balance -150 -600 0 Intake: Oral 0 Output: Urine 150 600 Other: Voiding Method Urinal Urinal Diaper Diaper Incontinent Incontinent # Voids 3 Weight 70.307 kg 67 kg 67 kg Patient Weight 11/30/18 06:59 Weight 67 kg 11/29/18 06:42 11/29/18 06:42 EKG Interpretations (text) Sinus rhythm with evidence of old myocardial infarction involving the anterolateral, apical area Assessment and Plan (1) Acute systolic (congestive) heart failure Current Visit: Yes Status: Acute Code(s): I50.21 - ACUTE SYSTOLIC (CONGESTIV E) HEART FAILURE SNOMED Code(s): 620203152 (2) Ischemic cardiomyopathy Current Visit: Yes Status: Acute Code(s): I25.5 - ISCHEMIC CARDIOMYOPATHY SNOMED Code(s): 629243605 (3) Chronic renal failure Current Visit: Yes Status: Acute Code(s): N18.9 - CHRONIC KIDNEY DISEASE, UNSPECIFIED SNOMED Code(s): 153055273 (4) Diabetes mellitus Current Visit: Yes Status: Acute Code(s): E11.9 - TYPE 2 DIABETES MELLITUS WITHOUT COMPLICATIONS SNOMED Code(s): 57788439 Plan: I'll continue with IV diuretics. I will add IV dobutamine. Renal consult. I'll put him on combination of hydralazine and Imdur. Further recommendation depending upon the clinical course.
[2018-11-29] MEDS: DOBUTamine DRIP 500 MG in DEXTROSE/WATER 1 250ML.BAG IV SCH (11:34)
[2018-11-29 12:13] LABS: Glucose,Whole Blood 57 mg/dL (75-99)
[2018-11-29 12:13] LABS: Glucose,Whole Blood 55 mg/dL (75-99)
[2018-11-29 12:14] LABS: Glucose,Whole Blood 75 mg/dL (75-99)
[2018-11-29] MEDS: hydrALAZINE HCL 25 MG TAB PO SCH ×2 (12:32→21:52)
[2018-11-29] MEDS: ISOSORBIDE MONONITRATE ER 15 MG TAB PO SCH (12:32)
--- NOTE | 2018-11-29 13:46 | P.PN ---
Subjective Progress Note Date: 11/29/18 Principal diagnosis: CHF exacerbation, new diagnosis Patient was seen and examined. No acute events overnight. Patient reports a slight improvement in his breathing but continues to complain of dyspnea with ambulation. He continues to complain of lower extremity swelling. His is at bedside. Objective - Vital Signs Vital signs: Vital Signs Temp 96.4 F L 11/29/18 09:04 Pulse 94 11/29/18 09:04 Resp 18 11/29/18 09:04 BP 135/75 11/29/18 09:04 Pulse Ox 94 L 11/29/18 09:04 Intake & Output 11/28/18 11/29/18 11/29/18 18:59 06:59 18:59 Intake Total 0 Output Total 750 490 Balance -750 -490 Weight 67 kg 67 kg Intake: Oral 0 Output: Urine 750 490 Other: Voiding Method Urinal Urinal Diaper Diaper Incontinent Incontinent # Voids 3 - Exam General: [non toxic], [mild distress], [appears at stated age] Derm: [warm], [dry] Head: [atraumatic], [normocephalic], [symmetric] Eyes: [EOMI], [no lid lag], [anicteric sclera] Mouth: [no lip lesion], [mucus membranes moist] Cardiovascular: [S1S2 reg], [no murmur], [positive posterior DP bilateral] Lungs: [Decreased breath sounds bilateral], [no rhonchi, no rales] , [no accessory muscle use] Abdominal: [soft], [ nontender to palpation], [no guarding], [no appreciable organomegaly] Ext: [no gross muscle atrophy], [2+ bilateral lower extremity edema], [no contractures] Neuro: [no focal neuro deficits] Psych: [Alert], [oriented], [appropriate affect] - Labs CBC & Chem 7: 11/29/18 06:42 11/29/18 06:42 Labs: Abnormal Lab Results - Last 24 Hours (Table) 11/28/18 11/28/18 11/28/18 Range/Units 19:18 19:18 19:18 RBC 3.96 L (4.30-5.90) m/uL Hgb 12.7 L (13.0-17.5) gm/dL MCV (80.0-100.0) fL MCHC (31.0-37.0) g/dL Plt Count (150-450) k/uL PT 12.2 H (9.0-12.0) sec INR 1.2 H (<1.2) D-Dimer 1.07 H (<0.60) mg/L FEU BUN 38 H (9-20) mg/dL Creatinine 2.25 H (0.66-1.25) mg/dL Glucose 268 H (74-99) mg/dL POC Glucose (mg/dL) (75-99) mg/dL Troponin I (0.000-0.034) ng/mL Urine Protein (Negative) Urine Glucose (UA) (Negative) Urine Blood (Negative) 11/28/18 11/28/18 11/28/18 Range/Units 19:18 22:49 23:26 RBC (4.30-5.90) m/uL Hgb (13.0-17.5) gm/dL MCV (80.0-100.0) fL MCHC (31.0-37.0) g/dL Plt Count (150-450) k/uL PT (9.0-12.0) sec INR (<1.2) D-Dimer (<0.60) mg/L FEU BUN (9-20) mg/dL Creatinine (0.66-1.25) mg/dL Glucose (74-99) mg/dL POC Glucose (mg/dL) 298 H (75-99) mg/dL Troponin I 0.048 H* (0.000-0.034) ng/mL Urine Protein 1+ H (Negative) Urine Glucose (UA) Trace H (Negative) Urine Blood Trace H (Negative) 11/29/18 11/29/18 11/29/18 Range/Units 00:45 02:12 06:10 RBC (4.30-5.90) m/uL Hgb (13.0-17.5) gm/dL MCV (80.0-100.0) fL MCHC (31.0-37.0) g/dL Plt Count (150-450) k/uL PT (9.0-12.0) sec INR (<1.2) D-Dimer (<0.60) mg/L FEU BUN (9-20) mg/dL Creatinine (0.66-1.25) mg/dL Glucose (74-99) mg/dL POC Glucose (mg/dL) 278 H 169 H (75-99) mg/dL Troponin I 0.060 H* (0.000-0.034) ng/mL Urine Protein (Negative) Urine Glucose (UA) (Negative) Urine Blood (Negative) 11/29/18 11/29/18 11/29/18 Range/Units 06:42 06:42 06:42 RBC 3.95 L (4.30-5.90) m/uL Hgb 12.1 L (13.0-17.5) gm/dL MCV 100.5 H (80.0-100.0) fL MCHC 30.4 L (31.0-37.0) g/dL Plt Count 142 L (150-450) k/uL PT (9.0-12.0) sec INR (<1.2) D-Dimer (<0.60) mg/L FEU BUN 39 H (9-20) mg/dL Creatinine 2.34 H (0.66-1.25) mg/dL Glucose 100 H (74-99) mg/dL POC Glucose (mg/dL) (75-99) mg/dL Troponin I 0.131 H* (0.000-0.034) ng/mL Urine Protein (Negative) Urine Glucose (UA) (Negative) Urine Blood (Negative) 11/29/18 11/29/18 Range/Units 11:35 11:52 RBC (4.30-5.90) m/uL Hgb (13.0-17.5) gm/dL MCV (80.0-100.0) fL MCHC (31.0-37.0) g/dL Plt Count (150-450) k/uL PT (9.0-12.0) sec INR (<1.2) D-Dimer (<0.60) mg/L FEU BUN (9-20) mg/dL Creatinine (0.66-1.25) mg/dL Glucose (74-99) mg/dL POC Glucose (mg/dL) 55 L 57 L (75-99) mg/dL Troponin I (0.000-0.034) ng/mL Urine Protein (Negative) Urine Glucose (UA) (Negative) Urine Blood (Negative) Assessment and Plan Assessment: Assessment and Plan 1. CHF exacerbation 2. Troponin elevation 3. CKG stage III 4. Diabetes mellitus 5. Hypertension 6. DVT and GI prophylaxis 1. BNP elevation to 32,700. Chest x-ray shows cardiomegaly and mild heart failure. Venous duplex is negative for DVT. Start diuresis with Lasix 40 mg IV 3 times a day. As per cardiology, EF is less than 20%, started on dobutamine drip. Continue hydralazine and Imdur. Strict in's and outs. Daily weights. Telemetry monitoring. Will follow cardiology recommendations. Will follow echocardiogram results. 2. Troponin 0.048, 0.1312 with EKG showing sinus tachycardia and low voltage QRS. Likely leak from CHF. Telemetry monitoring. Continue aspirin and Lipitor. Will follow cardiology recommendations. 3. BUN 39, creatinine 2.34. Avoid nephrotoxins. Monitor and replace electrolytes. We'll avoid IVF due to fluid overloaded state. We'll follow nephrology recommendations. 4. Bwwmk-cq-vrqb glucose. Continue Levemir 10 units at bedtime. Regular Accu- Cheks. Hypoglycemic precautions. 5. BP. Continue hydralazine 25 mg by mouth twice a day, Imdur 15 mg by mouth daily. Monitor vitals, adjust medications as necessary. 6. Heparin 5000 units subcutaneously 3 times a day. Patient made a for CHF exacerbation, IV diuresing. Cardiology is on board. Nephrology consulted for CKD. Patient is pending clinical improvement.
[2018-11-29 14:43] LABS: Glucose,Whole Blood 206 mg/dL (75-99)
[2018-11-29 17:12] LABS: Glucose,Whole Blood 234 mg/dL (75-99)
--- NOTE | 2018-11-29 17:40 | ECHOF ---
Referral Reason:CHF MEASUREMENTS -------- HEIGHT: 165.1 cm WEIGHT: 66.7 kg BP: 134/84 RVIDd: 3.4 cm (< 3.3) IVSd: 1.2 cm (0.6 - 1.1) LVIDd: 5.1 cm (3.9 - 5.3) LVPWd: 1.0 cm (0.6 - 1.1) IVSs: 1.1 cm LVIDs: 4.5 cm LVPWs: 1.3 cm LA Diam: 4.3 cm (2.7 - 3.8) LAESV Index (A-L): 41.84 ml/m Ao Diam: 3.2 cm (2.0 - 3.7) AV Cusp: 1.7 cm (1.5 - 2.6) MV EXCURSION: 13.883 mm (> 18.000) MV EF SLOPE: 56 mm/s (70 - 150) EPSS: 3.1 cm RAP: 15.00 mmHg RVSP: 61.60 mmHg FINDINGS -------- Sinus rhythm. This was a technically good study. The left ventricular size is normal. There is borderline concentric left ventricular hypertrophy. Overall left ventricular systolic function is severely impaired with, an EF < 20%. The right ventricle is mildly enlarged. The right ventricular systolic function is moderately impai red. LA is severely dilated >40 ml/m2 The right atrium is normal in size. Aortic valve is trileaflet and is mildly thickened. The mitral valve leaflets are mildly thickened. Uqhu-sv-gmtjapmj mitral regurgitation is present. Moderate tricuspid regurgitation present. There is moderate pulmonary hypertension. The right tessa tricular systolic pressure, as measured by Doppler, is 61.60mmHg. Trace/mild (physiologic) pulmonic regurgitation. The aortic root size is normal. The inferior vena cava is dilated with no significant inspiratory collapse which is consistent estima lucy right atrial pressure of >15 mmHg. There is a moderate, generalized pericardial effusion present. There is no evidence of cardiac tamp onade. Pleural Effusion with Fibrin. CONCLUSIONS -------- 1. Sinus rhythm. 2. This was a technically good study. 3. The left ventricular size is normal. 4. There is borderline concentric left ventricular hypertrophy. 5. Overall left ventricular systolic function is severely impaired with, an EF < 20%. 6. The right ventricle is mildly enlarged. 7. The right ventricular systolic function is moderately impaired. 8. LA is severely dilated >40 ml/m2 9. The right atrium is normal in size. 10. Aortic valve is trileaflet and is mildly thickened. 11. The mitral valve leaflets are mildly thickened. 12. [id number]-xz-[id number] mitral regurgitation is present. 13. Moderate tricuspid regurgitation present. 14. There is moderate pulmonary hypertension. 15. Trace/mild (physiologic) pulmonic regurgitation. 16. The aortic root size is normal. 17. The inferior vena cava is dilated with no significant inspiratory collapse which is consistent es timated right atrial pressure of >15 mmHg. 18. There is a moderate, generalized pericardial effusion present. 19. There is no evidence of cardiac tamponade. 20. Pleural Effusion with Fibrin. METAL DRESSER: Melida Mtz RDCS
[2018-11-29 21:10] LABS: Glucose,Whole Blood 80 mg/dL (75-99)
[2018-11-29] MEDS: INSULIN DETEMIR (LEVEMIR) 100 UNIT/ML SYR SQ SCH (21:52)
[2018-11-29] MEDS ORDERED: FUROSEMIDE 10 MG/ML 4 ML VIAL IV SCH (22:00)
[2018-11-30 06:20] LABS: Glucose,Whole Blood 181 mg/dL (75-99)
[2018-11-30] MEDS: INSULIN ASPART (NovoLOG) 100 UNIT/ML VIAL SQ SCH ×4 (06:48→21:11)
[2018-11-30 07:15] LABS: HCT 35.1 % (39.0-53.0); HGB 11.4 gm/dL (13.0-17.5); Hypochromasia Slight; MCH 32.3 pg (25.0-35.0); MCHC 32.4 g/dL (31.0-37.0); MCV 99.7 fL (80.0-100.0); Macrocytosis Slight; Mean Platelet Volume 8.4; Platelet Count 131 k/uL (150-450); RBC 3.52 m/uL (4.30-5.90); RDW 14.2 % (11.5-15.5); WBC 6.1 k/uL (3.8-10.6)
[2018-11-30 07:42] LABS: Calcium 8.6 mg/dL (8.4-10.2); Potassium 3.9 mmol/L (3.5-5.1)
[2018-11-30] MEDS: hydrALAZINE HCL 25 MG TAB PO SCH ×2 (08:02→21:04)
[2018-11-30] MEDS: HEPARIN SODIUM,PORCINE 5,000 UNIT/ML 1 ML VIAL SQ SCH ×3 (08:02→22:57)
[2018-11-30] MEDS: FUROSEMIDE 10 MG/ML 4 ML VIAL IV SCH ×2 (08:03→21:04)
[2018-11-30] MEDS: ASPIRIN 325 MG TAB PO SCH (08:03)
[2018-11-30] MEDS: amLODIPine 5 MG TAB PO SCH (08:03)
[2018-11-30] MEDS: DOBUTamine DRIP 500 MG in DEXTROSE/WATER 1 250ML.BAG IV SCH (08:03)
[2018-11-30] MEDS: ISOSORBIDE MONONITRATE ER 15 MG TAB PO SCH (08:03)
[2018-11-30] MEDS: ATORVASTATIN 20 MG TAB PO SCH (08:03)
--- NOTE | 2018-11-30 10:18 | P.PN ---
Subjective Progress Note Date: 11/30/18 Principal diagnosis: THE PATIENT IS A 73-YEAR-OLD MALE WITH A PAST MEDICAL HISTORY OF TYPE 2 DIABETES, essential hypertension, hyperlipidemia, CKD stage III presented to the ER with complaints of dyspnea, 3+ pillow orthopnea, and bilateral lower extremity swelling he was admitted for acute CHF exacerbation [place] [address] along with a clinically hypervolemic exam. He was started on diuresis with Lasix, placed on a fluid restriction, with daily weights. 2-D echocardiogram performed was consistent with systolic CHF exacerbation with a lvEF of less than 20%, impaired right ventricular systolic function and a severely dilated left atrium with moderate pulmonary hypertension, moderate TR, mild to moderate MR, Chest x-ray was consistent with cardiomegaly with evidence of heart failure. The patient was noted to have a mildly elevated troponin secondary to demand ischemia from his CHF exacerbation. The patient was started on dobutamine and nephrology was consulted Patient complaining of fatigue and shortness of breath, not been able to be up and ambulatory on his own. Continues to complain of lower extremity swelling although it appears to be improving, per nursing the patient is diuresing well. Fluid balance -2.4 and his weight is down 2 kg doing well with oral fluid restriction. Creatinine 2.38 Objective - Vital Signs Vital signs: Vital Signs Temp 97.3 F L 11/30/18 08:01 Pulse 100 11/30/18 08:01 Resp 18 11/30/18 08:01 BP 120/60 11/30/18 08:01 Pulse Ox 98 11/30/18 08:01 Intake & Output 11/29/18 11/30/18 11/30/18 18:59 06:59 18:59 Intake Total 740 118 205.857 Output Total 790 2550 Balance -50 -8692 205.857 Weight 67 kg 65 kg Intake: Intake, IV Titration 205.857 Amount DOBUTamine DRIP 500 mg In 205.857 Dextrose/Water 1 250ml. bag @ 5 MCG/KG/MIN 10.05 mls/hr IV .Q24H TATA Rx#: [id number] Oral 740 118 Output: Urine 790 2550 Other: Voiding Method Urinal Bedside Commode Diaper Incontinent # Voids 2 # Bowel Movements 1 - Exam Constitutional: No acute distress, conversant, pleasant Eyes: Anicteric sclerae, moist conjunctiva, no lid-lag, PERRLA ENMT: NC/AT,Oropharynx clear, no erythema, exudates Neck:Supple, FROM, no masses, or JVD, No carotid bruits; No thyromegaly Lungs: Clear to auscultation, Clear to percussion, Normal respiratory effort, no accessory muscle use Cardiovascular: Heart regular in rate and rhythm, No murmurs, gallops, or rubs , + 2 bilateral lower extremity pitting edema Abdominal: Soft Nontender, nom distended, no guarding, no rebound or rigidity, Normoactive bowel sounds No hepatomegaly, No splenomegaly, No palpable mass No abdominal wall hernia noted Skin: Normal temperature, tone, texture, turgor, No induration No subcutaneous nodules, No rash, lesions, No ulcers Extremities:No digital cyanosis No clubbing, Pedal pulses intact and symmetrical Radial pulses intact and symmetrical Normal gait and station, No calf tenderness Psychiatric: Alert and oriented to person, place and time, Appropriate affect Intact judgement Neuro: Muscles Strength 5/5 in all 4 extremities, Sensation to light touch grossly present throughout, Cranial nerves II-XII grossly intact. No focal sensory deficits - Labs CBC & Chem 7: 11/30/18 06:45 11/30/18 06:45 Labs: Abnormal Lab Results - Last 24 Hours (Table) 11/29/18 11/29/18 11/29/18 Range/Units 11:35 11:52 14:40 RBC (4.30-5.90) m/uL Hgb (13.0-17.5) gm/dL Hct (39.0-53.0) % Plt Count (150-450) k/uL Carbon Dioxide (22-30) mmol/L BUN (9-20) mg/dL Creatinine (0.66-1.25) mg/dL Glucose (74-99) mg/dL POC Glucose (mg/dL) 55 L 57 L 206 H (75-99) mg/dL 11/29/18 11/30/18 11/30/18 Range/Units 17:06 06:19 06:45 RBC 3.52 L (4.30-5.90) m/uL Hgb 11.4 L (13.0-17.5) gm/dL Hct 35.1 L (39.0-53.0) % Plt Count 131 L (150-450) k/uL Carbon Dioxide (22-30) mmol/L BUN (9-20) mg/dL Creatinine (0.66-1.25) mg/dL Glucose (74-99) mg/dL POC Glucose (mg/dL) 234 H 181 H (75-99) mg/dL 11/30/18 Range/Units 06:45 RBC (4.30-5.90) m/uL Hgb (13.0-17.5) gm/dL Hct (39.0-53.0) % Plt Count (150-450) k/uL Carbon Dioxide 32 H (22-30) mmol/L BUN 38 H (9-20) mg/dL Creatinine 2.38 H (0.66-1.25) mg/dL Glucose 178 H (74-99) mg/dL POC Glucose (mg/dL) (75-99) mg/dL Assessment and Plan (1) Acute systolic (congestive) heart failure Narrative/Plan: * NT ProBNP elevation to 32,700. Chest x-ray shows cardiomegaly and mild heart failure. * Venous duplex is negative for DVT. Continue diuresis with Lasix 40 mg IV 3 times a day. As per cardiology, EF is less than 20%, started on dobutamine drip. * Continue hydralazine and Imdur. Strict in's and outs. Daily weights. Telemetry monitoring. * Echo also showing moderate pulmonary hypertension, moderate TR, mild to mo derate MR Current Visit: Yes Status: Acute Code(s): I50.21 - ACUTE SYSTOLIC (CONGESTIVE) HEART FAILURE SNOMED Code(s): 612644993 (2) Type 2 diabetes mellitus with hyperglycemia Narrative/Plan: * . Gsitv-lp-sadw glucose. Continue Levemir 10 units at bedtime. Regular Accu-Cheks. Hypoglycemic precautions Current Visit: Yes Status: Acute Code(s): E11.65 - TYPE 2 DIABETES MELLITUS WITH HYPERGLYCEMIA SNOMED Code(s): 735815706153248 (3) Essential hypertension Narrative/Plan: * Blood pressure stable controlled on current regimen * Continue hydralazine, discontinue Norvasc will add DARRIN inhibitor lisinopril 20 mg daily, and continue Imdur Current Visit: Yes Status: Acute Code(s): I10 - ESSENTIAL (PRIMARY) HYPERTENSION SNOMED Code(s): 37549032 (4) Ischemic cardiomyopathy Current Visit: Yes Status: Acute Code(s): I25.5 - ISCHEMIC CARDIOMYOPATHY SNOMED Code(s): 579880079 (5) Chronic kidney disease, stage III (moderate) Narrative/Plan: * Renal following creatinine 2.38 today Current Visit: Yes Status: Acute Code(s): N18.3 - CHRONIC KIDNEY DISEASE, STAGE 3 (MODERATE) SNOMED Code(s): 305287103
[2018-11-30 11:36] LABS: Glucose,Whole Blood 203 mg/dL (75-99)
--- NOTE | 2018-11-30 16:29 | CONS ---
CONSULTATION REASON FOR CONSULT: Renal failure. HISTORY OF PRESENT ILLNESS: Patient is a 73-year-old male who was admitted to the hospital with complaints of shortness of breath, he did not have any chest pains. Patient has also developed has also had increased lower extremity swelling. He denied any fevers or chills. Patient is currently being diuresed. Patient does have CKD stage IIIB, secondary to diabetic nephropathy and nephrosclerosis. Patient is maintained on DARRIN inhibitors as outpatient. He is currently maintained on dobutamine and Lasix IV. He states he is feeling much better with much improved urine output. Ejection fraction on echocardiogram done in the hospital was less than 20% with severely dilated left atrium. Overall, patient states he is feeling better. PAST MEDICAL HISTORY: Coronary artery disease, cardiomyopathy, CHF, type 2 diabetes, hypertension, CKD stage III, hyperlipidemia, history of prostatic cancer. PAST SURGICAL HISTORY: Right ankle surgery. Bilateral cataract surgery, colonoscopy, prostatectomy. MEDICATIONS: Prior to admission included Zocor, Norvasc, Glucotrol, Januvia, vitamin D2, Micardis. ALLERGIES: Include FISH and SULFA. REVIEW OF SYSTEMS: As per HPI. Other systems negative. PHYSICAL EXAMINATION: Patient is comfortable, awake, alert, oriented x3, not in any acute distress. Blood pressure is 120/60, heart rate 100 per minute. He is afebrile. Examination of the heart, S1, S2. Examination of the lungs, bilateral breath sounds are heard. Abdomen is soft, nontender. Examination of lower extremities shows edema 2+ bilaterally. [employer] exam is grossly intact. LABS: Show sodium of 138, potassium 3.9, CO2 is 32, BUN 38, serum creatinine 2.38. ASSESSMENT: 1. Chronic kidney disease, NKF stage III, secondary to diabetic nephropathy and nephrosclerosis. Baseline creatinine about 1.7-2 mg/dL. 2. Acute kidney injury mainly cardiorenal. Currently patient is being diuresed. Agree with decreasing dose of DARRIN inhibitors. Blood pressure is not significantly elevated. I will continue with the dobutamine drip and Lasix IV for now. Patient does have evidence of mild metabolic alkalosis secondary to the diuresis. I will decrease the Lasix to 40 mg q.12 hours. 3. Cardiomyopathy, ejection fraction less than 20%. 4. Congestive heart failure, acute on top of chronic, currently mainly systolic. 5. Hypertension. Continue current medications. PLAN: Continue current dose of DARRIN inhibitors. Decrease Lasix to 40 mg q.12 hours. Continue with dobutamine. Repeat labs in a.m. Thank you for this consultation. Will continue to follow the patient during hospitalization. JUDIE / KENYAN: [id number] / MTDD
[2018-11-30 16:49] LABS: Glucose,Whole Blood 174 mg/dL (75-99)
[2018-11-30] MEDS: CARVEDILOL 6.25 MG TAB PO SCH (17:24)
--- NOTE | 2018-11-30 18:41 | PN ---
PROGRESS NOTE Mr. Acuna is a 73-year-old gentleman recently diagnosed with CHF. He is breathing easier, resting comfortably. He has history of diabetes and chronic kidney disease as well. I am recommending that we initiate him on Coreg 6.25 mg b.i.d., decrease aspirin to 81 mg daily, continue hydralazine and lisinopril. S1-S2 heard normally. Short systolic murmur noted. Lungs reveal diminished air entry. Abdomen and lower extremity exam is unchanged. Prognosis remains guarded. We will optimize his heart failure management and seek further input from Nephrology. MMODL / IJN: [id number] /
[2018-11-30] MEDS: LISINOPRIL 5 MG TAB PO SCH (21:04)
[2018-11-30 21:09] LABS: Glucose,Whole Blood 125 mg/dL (75-99)
[2018-11-30] MEDS: INSULIN DETEMIR (LEVEMIR) 100 UNIT/ML SYR SQ SCH (21:11)
[2018-12-01 06:07] LABS: Glucose,Whole Blood 59 mg/dL (75-99)
[2018-12-01] MEDS: INSULIN ASPART (NovoLOG) 100 UNIT/ML VIAL SQ SCH ×4 (06:09→20:59)
[2018-12-01] MEDS: CARVEDILOL 6.25 MG TAB PO SCH ×2 (06:20→17:27)
[2018-12-01 06:32] LABS: Glucose,Whole Blood 119 mg/dL (75-99)
[2018-12-01] MEDS: ISOSORBIDE MONONITRATE ER 15 MG TAB PO SCH (08:01)
[2018-12-01] MEDS: hydrALAZINE HCL 25 MG TAB PO SCH ×2 (08:01→22:03)
[2018-12-01] MEDS: ASPIRIN 81 MG PO SCH (08:01)
[2018-12-01] MEDS: FUROSEMIDE 10 MG/ML 4 ML VIAL IV SCH (08:01)
[2018-12-01] MEDS: ATORVASTATIN 20 MG TAB PO SCH (08:01)
[2018-12-01] MEDS: HEPARIN SODIUM,PORCINE 5,000 UNIT/ML 1 ML VIAL SQ SCH ×3 (08:02→22:03)
[2018-12-01 08:15] LABS: Calcium 8.4 mg/dL (8.4-10.2); Potassium 4.3 mmol/L (3.5-5.1)
[2018-12-01] MEDS ORDERED: LISINOPRIL 20 MG TAB PO SCH (09:00)
[2018-12-01 09:47] LABS: Glucose,Whole Blood 175 mg/dL (75-99)
[2018-12-01 11:30] LABS: Glucose,Whole Blood 129 mg/dL (75-99)
--- NOTE | 2018-12-01 12:24 | P.PN ---
Subjective Mr. Silvestre Acuna, male 73 years of age admitted for shortness of breath and bilateral lower extremity edema. History of diabetes, hypertension, high cholesterol and CKD3 . Ejection fraction 20%. Patient continues to improve, currently alert and oriented lying in bed with no acute distress. Dobutamine drip continues. Patient has no current complaints of shortness of breath but continues with lower extremity edema. patient continues with IV Lasix 40 mg IV twice daily. Patient sinus rhythm, heart rate 72. Kidney function remains elevated BUN 38/creatinine 2.5. Patient continues on O2 at 2 L. Objective - Vital Signs Vital signs: Vital Signs Temp 97.5 F L 12/01/18 07:39 Pulse 76 12/01/18 11:27 Resp 18 12/01/18 11:27 BP 107/70 12/01/18 11:27 Pulse Ox 100 12/01/18 11:27 Intake & Output 11/30/18 12/01/18 12/01/18 18:59 06:59 18:59 Intake Total 881.857 500 118 Output Total 1550 1400 600 Balance -668.143 -900 -482 Weight 63.9 kg Intake: IV 40 0.9@10 40 Intake, IV Titration 205.857 Amount DOBUTamine DRIP 500 mg In 205.857 Dextrose/Water 1 250ml. bag @ 2.5 MCG/KG/MIN 5. 025 mls/hr IV .Q24H [facility] Rx#:[id number] Oral 636 500 118 Output: Urine 1550 1400 600 Other: Voiding Method Bedside Commode Urinal # Voids 2 - Exam CARDIAC PHYSICAL EXAM: GENERAL: Well-appearing, well-nourished and in no acute distress. NECK: Supple without JVD or thyromegaly. LUNGS: Diminished breath sounds bilaterally. Respiration equal and unlabored. No wheezes, rales or rhonchi. HEART: Regular rate and rhythm, no rubs or gallops. S1 and S2 heard. Mild systolic murmur at the base, I/.. EXTREMITIES: Normal range of motion, BLE edema, 2-3+. No clubbing or cyanosis. Peripheral pulses intact. - Labs CBC & Chem 7: 11/30/18 06:45 12/01/18 07:40 Labs: Abnormal Lab Results - Last 24 Hours (Table) 11/30/18 11/30/18 12/01/18 Range/Units 16:40 21:07 06:06 BUN (9-20) mg/dL Creatinine (0.66-1.25) mg/dL Glucose (74-99) mg/dL POC Glucose (mg/dL) 174 H 125 H 59 L (75-99) mg/dL 12/01/18 12/01/18 12/01/18 Range/Units 06:31 07:40 09:44 BUN 38 H (9-20) mg/dL Creatinine 2.55 H (0.66-1.25) mg/dL Glucose 105 H (74-99) mg/dL POC Glucose (mg/dL) 119 H 175 H (75-99) mg/dL 12/01/18 Range/Units 11:28 BUN (9-20) mg/dL Creatinine (0.66-1.25) mg/dL Glucose (74-99) mg/dL POC Glucose (mg/dL) 129 H (75-99) mg/dL Assessment and Plan Plan: Continue to monitor closely. Decrease dobutamine drip to 2.5 mg then DC this p.m. Continue with IV Lasix 40 mg twice daily. Follow with recommendations of nephrology. Will follow along, please call with questions or concerns.
--- NOTE | 2018-12-01 14:05 | P.PN ---
Subjective Progress Note Date: 12/01/18 Principal diagnosis: THE PATIENT IS A 73-YEAR-OLD MALE WITH A PAST MEDICAL HISTORY OF TYPE 2 DIABETES, essential hypertension, hyperlipidemia, CKD stage III presented to the ER with complaints of dyspnea, 3+ pillow orthopnea, and bilateral lower extremity swelling he was admitted for acute CHF exacerbation After [place] [address] along with a clinically hypervolemic exam. He was started on diuresis with Lasix, placed on a fluid restriction, with daily weights. 2-D echocardiogram performed was consistent with systolic CHF exacerbation with a lvEF of less than 20%, impaired right ventricular systolic function and a severely dilated left atrium with moderate pulmonary hypertension, moderate TR, mild to moderate MR, Chest x-ray was consistent with cardiomegaly with evidence of heart failure. The patient was noted to have a mildly elevated troponin secondary to demand ischemia from his CHF exacerbation. The patient was started on dobutamine and nephrology was consulted Patient complaining of fatigue and shortness of breath when on Room air, and is symptomatic with this 2 L nasal cannula. Continues to complain of lower extremity swelling although it appears to be improving, per nursing the patient is diuresing well. Creatinine 2.5 Objective - Vital Signs Vital signs: Vital Signs Temp 97.5 F L 12/01/18 07:39 Pulse 76 12/01/18 11:27 Resp 18 12/01/18 11:27 BP 107/70 12/01/18 11:27 Pulse Ox 100 12/01/18 11:27 Intake & Output 11/30/18 12/01/18 12/01/18 18:59 06:59 18:59 Intake Total 881.857 500 118 Output Total 1550 1400 600 Balance -668.143 -900 -482 Weight 63.9 kg Intake: IV 40 0.9@10 40 Intake, IV Titration 205.857 Amount DOBUTamine DRIP 500 mg In 205.857 Dextrose/Water 1 250ml. bag @ 2.5 MCG/KG/MIN 5. 025 mls/hr IV .Q24H [facility] Rx#:[id number] Oral 636 500 118 Output: Urine 1550 1400 600 Other: Voiding Method Bedside Commode Urinal # Voids 2 - Exam Constitutional: No acute distress, conversant, pleasant Eyes: Anicteric sclerae, moist conjunctiva, no lid-lag, PERRLA ENMT: NC/AT,Oropharynx clear, no erythema, exudates Neck:Supple, FROM, no masses, or JVD, No carotid bruits; No thyromegaly Lungs: Clear to auscultation, Clear to percussion, Normal respiratory effort, no accessory muscle use Cardiovascular: Heart regular in rate and rhythm, No murmurs, gallops, or rubs , + 2 bilateral lower extremity pitting edema Abdominal: Soft Nontender, nom distended, no guarding, no rebound or rigidity, Normoactive bowel sounds No hepatomegaly, No splenomegaly, No palpable mass No abdominal wall hernia noted Skin: Normal temperature, tone, texture, turgor, No induration No subcutaneous nodules, No rash, lesions, No ulcers Extremities:No digital cyanosis No clubbing, Pedal pulses intact and symmetrical Radial pulses intact and symmetrical Normal gait and station, No calf tenderness Psychiatric: Alert and oriented to person, place and time, Appropriate affect Intact judgement Neuro: Muscles Strength 5/5 in all 4 extremities, Sensation to light touch grossly present throughout, Cranial nerves II-XII grossly intact. No focal sen eloisa deficits - Labs CBC & Chem 7: 11/30/18 06:45 12/01/18 07:40 Labs: Abnormal Lab Results - Last 24 Hours (Table) 11/30/18 11/30/18 12/01/18 Range/Units 16:40 21:07 06:06 BUN (9-20) mg/dL Creatinine (0.66-1.25) mg/dL Glucose (74-99) mg/dL POC Glucose (mg/dL) 174 H 125 H 59 L (75-99) mg/dL 12/01/18 12/01/18 12/01/18 Range/Units 06:31 07:40 09:44 BUN 38 H (9-20) mg/dL Creatinine 2.55 H (0.66-1.25) mg/dL Glucose 105 H (74-99) mg/dL POC Glucose (mg/dL) 119 H 175 H (75-99) mg/dL 12/01/18 Range/Units 11:28 BUN (9-20) mg/dL Creatinine (0.66-1.25) mg/dL Glucose (74-99) mg/dL POC Glucose (mg/dL) 129 H (75-99) mg/dL Assessment and Plan (1) Acute systolic (congestive) heart failure Narrative/Plan: * NT ProBNP elevation to 32,700. Chest x-ray shows cardiomegaly and mild heart failure. * Venous duplex is negative for DVT. Continue diuresis with Lasix 40 mg IV q12 As per cardiology, * Continue hydralazine and Imdur. Strict in's and outs. Daily weights. Tel emetry monitoring. * Echo EF is less than 20%, also showing moderate pulmonary hypertension, moderate TR, mild to moderate MR, * Plan To wean dopamine drip today Current Visit: Yes Status: Acute Code(s): I50.21 - ACUTE SYSTOLIC (CONGESTIVE) HEART FAILURE SNOMED Code(s): 717271542 (2) Type 2 diabetes mellitus with hyperglycemia Narrative/Plan: * . Wrbji-la-aatp glucose. Continue Levemir 10 units at bedtime. Regular Accu-Cheks. Hypoglycemic precautions Current Visit: Yes Status: Acute Code(s): E11.65 - TYPE 2 DIABETES MELLITUS WITH HYPERGLYCEMIA SNOMED Code(s): 946271432761032 (3) Essential hypertension Narrative/Plan: * Blood pressure stable controlled on current regimen * Continue hydralazine, discontinue Norvasc will add DARRIN inhibitor lisinopril 20 mg daily, and continue Imdur Current Visit: Yes Status: Acute Code(s): I10 - ESSENTIAL (PRIMARY) HYPERTENSION SNOMED Code(s): 26412267 (4) Ischemic cardiomyopathy Narrative/Plan: * Continue Coreg, Lipitor, aspirin and lisinopril Current Visit: Yes Status: Acute Code(s): I25.5 - ISCHEMIC CARDIOMYOPATHY SNOMED Code(s): 397188074 (5) Chronic kidney disease, stage III (moderate) Narrative/Plan: * Acute kidney injury superimposed on chronic kidney disease likely cardiorenal superimposed on diabetic nephropathy and nephrosclerosis * Renal following appreciate Dr. Cuevas's recommendations * creatinine 2.5 today previous baseline 1.7-2 Current Visit: Yes Status: Acute Code(s): N18.3 - CHRONIC KIDNEY DISEASE, STAGE 3 (MODERATE) SNOMED Code(s): 156204084 Plan: disposition * Anticipated discharge 1-2 days
--- NOTE | 2018-12-01 14:18 | PN ---
PROGRESS NOTE Patient is seen for followup for chronic kidney disease and acute kidney injury. He was admitted to the hospital with CHF exacerbation. Currently patient is being diuresed. He is also maintained on IV dobutamine for significant cardiomyopathy with ejection fraction of less than 20%. Lasix was decreased to 40 mg q.12 hours yesterday. Patient has had good urine output. He has lost a significant amount of weight and is down to 63.9 from 70 kilos on initial admission. Serum creatinine is at 2.5, which is up from 2.25 on initial admission. Previous labs show serum creatinine about 2-2.1 in June, July and August of 2018. PHYSICAL EXAMINATION: On examination today, patient is comfortable. He is awake. He is not in any acute distress. Blood pressure was 115/72, heart rate 88 per minute. He is afebrile. Examination of the heart: S1, S2. Examination of the lungs: Decreased breath sounds at bases. No crackles or wheezing is heard. Abdomen is soft, nontender. Examination lower extremities shows edema 1+ bilaterally, currently improved. LABS: Show sodium 140, potassium 4.3, BUN 38, serum creatinine 2.5, calcium is 8.4. ASSESSMENT: 1. Acute kidney injury, cardiorenal, currently improving. Decrease the Lasix to 40 mg IV daily. Blood pressure is on the lower side. I will hold off on the DARRIN inhibitors as well for now. 2. Severe cardiomyopathy, EF less than 20%, maintained on IV dobutamine. 3. Congestive heart failure, acute on top of chronic, mainly systolic. 4. Chronic kidney disease secondary to nephrosclerosis and diabetic nephropathy, NKF stage IV. Previous creatinine about 2 mg/dL. 5. Hypertension. Blood pressure currently on the lower side. Hold off on lisinopril. PLAN: Hold lisinopril as systolic blood pressure is about 107 mmHg. I will decrease the Lasix to 40 mg IV daily and the dobutamine can likely be discontinued tomorrow. Repeat labs in a.m. We can resume low-dose DARRIN inhibitors as outpatient depending on the volume status. MMODL / IJN: [id number] /
[2018-12-01] MEDS: DOBUTamine DRIP 500 MG in DEXTROSE/WATER 1 250ML.BAG IV SCH (15:27)
[2018-12-01 16:33] LABS: Glucose,Whole Blood 291 mg/dL (75-99)
[2018-12-01 20:43] LABS: Glucose,Whole Blood 111 mg/dL (75-99)
[2018-12-01] MEDS: INSULIN DETEMIR (LEVEMIR) 100 UNIT/ML SYR SQ SCH (21:02)
[2018-12-01] MEDS: LISINOPRIL 5 MG TAB PO SCH (22:03)
[2018-12-02 05:59] LABS: Glucose,Whole Blood 194 mg/dL (75-99)
[2018-12-02] MEDS: CARVEDILOL 6.25 MG TAB PO SCH ×2 (06:34→17:32)
[2018-12-02] MEDS: INSULIN ASPART (NovoLOG) 100 UNIT/ML VIAL SQ SCH ×4 (06:35→20:33)
[2018-12-02 07:20] LABS: Calcium 8.3 mg/dL (8.4-10.2); Potassium 5.1 mmol/L (3.5-5.1)
[2018-12-02] MEDS: HEPARIN SODIUM,PORCINE 5,000 UNIT/ML 1 ML VIAL SQ SCH ×3 (07:48→23:43)
[2018-12-02] MEDS: FUROSEMIDE 10 MG/ML 4 ML VIAL IV SCH (07:49)
[2018-12-02] MEDS: ATORVASTATIN 20 MG TAB PO SCH (07:49)
[2018-12-02] MEDS: ASPIRIN 81 MG PO SCH (07:49)
[2018-12-02] MEDS: hydrALAZINE HCL 25 MG TAB PO SCH ×2 (07:49→20:17)
[2018-12-02] MEDS: ISOSORBIDE MONONITRATE ER 15 MG TAB PO SCH (07:49)
--- NOTE | 2018-12-02 09:03 | P.PN ---
Subjective Patient is seen in follow-up for acute kidney injury on chronic kidney disease. Dobutamine drip has been discontinued. He is now maintained on Lasix 40 mg IV once daily. Admits to good urine output. No vomiting or diarrhea. Denies chest pain or shortness of breath. Patient has systolic CHF with ejection fraction of near 20%. Renal function is stable. Vital signs are stable. General: The patient appeared well nourished and normally developed. HEENT: Head exam is unremarkable. Neck is without jugular venous distension. LUNGS: Lungs are clear to auscultation and percussion. Breath sounds decreased. HEART: Rate and Rhythm are regular. First and second heart sounds normal. No murmurs, rubs or gallops. ABDOMEN: Abdominal exam reveals normal bowel sounds. Non-tender and non- distended. No evidence of peritonitis. EXTREMITITES: 1+ edema. Objective - Vital Signs Vital signs: Vital Signs Temp 98.4 F 12/02/18 07:44 Pulse 83 12/02/18 07:44 Resp 18 12/02/18 07:44 BP 106/70 12/02/18 07:44 Pulse Ox 97 12/02/18 07:44 Intake & Output 12/01/18 12/02/18 12/02/18 18:59 06:59 18:59 Intake Total 579 20 240 Output Total 800 100 100 Balance -221 -80 140 Weight 64 kg Intake: IV 20 0.9@10 20 Oral 579 240 Output: Urine 800 100 100 Other: Voiding Method Urinal # Voids 2 - Labs CBC & Chem 7: 11/30/18 06:45 12/02/18 06:26 Labs: Abnormal Lab Results - Last 24 Hours (Table) 12/01/18 12/01/18 12/01/18 Range/Units 09:44 11:28 16:31 Carbon Dioxide (22-30) mmol/L BUN (9-20) mg/dL Creatinine (0.66-1.25) mg/dL Glucose (74-99) mg/dL POC Glucose (mg/dL) 175 H 129 H 291 H (75-99) mg/dL Calcium (8.4-10.2) mg/dL 12/01/18 12/02/18 12/02/18 Range/Units 20:42 05:58 06:26 Carbon Dioxide 33 H (22-30) mmol/L BUN 42 H (9-20) mg/dL Creatinine 2.51 H (0.66-1.25) mg/dL Glucose 180 H (74-99) mg/dL POC Glucose (mg/dL) 111 H 194 H (75-99) mg/dL Calcium 8.3 L (8.4-10.2) mg/dL Assessment and Plan Plan: Assessment: 1. Acute kidney injury secondary to cardiorenal syndrome. Creatinine stable at 2.51 today. 2. 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 3. Systolic CHF with ejection fraction of 20%. 4. Volume overload. Improved. 5. Hypertension with chronic kidney disease. Controlled. Plan: Maintain Lasix 40 mg IV daily. Low-salt diet. Repeat electrolytes in the morning.
[2018-12-02] MEDS: glipiZIDE 10 MG TAB PO SCH ×2 (09:39→17:32)
--- NOTE | 2018-12-02 09:39 | P.PN ---
Subjective Progress Note Date: 12/02/18 Principal diagnosis: THE PATIENT IS A 73-YEAR-OLD MALE WITH A PAST MEDICAL HISTORY OF TYPE 2 DIABETES, essential hypertension, hyperlipidemia, CKD stage III presented to the ER with complaints of dyspnea, 3+ pillow orthopnea, and bilateral lower extremity swelling he was admitted for acute CHF exacerbation [place] [address] along with a clinically hypervolemic exam. He was started on diuresis with Lasix, placed on a fluid restriction, with daily weights. 2-D echocardiogram performed was consistent with systolic CHF exacerbation with a lvEF of less than 20%, impaired right ventricular systolic function and a severely dilated left atrium with moderate pulmonary hypertension, moderate TR, mild to moderate MR, Chest x-ray was consistent with cardiomegaly with evidence of heart failure. The patient was noted to have a mildly elevated troponin secondary to demand ischemia from his CHF exacerbation. The patient was started on dobutamine and nephrology was consulted Patient seen and examined at bedside having breakfast, apparently has been ambulatory with a walker working with physical therapy, still pretty dyspneic with ambulation currently on room air, scheduled to have home O2 eval this morning. Creatinine seems to have stabilized at 2.51. No acute events overnight Objective - Vital Signs Vital signs: Vital Signs Temp 98.4 F 12/02/18 07:44 Pulse 83 12/02/18 07:44 Resp 18 12/02/18 07:44 BP 106/70 12/02/18 07:44 Pulse Ox 97 12/02/18 07:44 Intake & Output 12/01/18 12/02/18 12/02/18 18:59 06:59 18:59 Intake Total 579 20 240 Output Total 800 100 100 Balance -221 -80 140 Weight 64 kg Intake: IV 20 0.9@10 20 Oral 579 240 Output: Urine 800 100 100 Other: Voiding Method Urinal # Voids 2 - Exam Constitutional: No acute distress, conversant, pleasant Eyes: Anicteric sclerae, moist conjunctiva, no lid-lag, PERRLA ENMT: NC/AT,Oropharynx clear, no erythema, exudates Neck:Supple, FROM, no masses, or JVD, No carotid bruits; No thyromegaly Lungs: Clear to auscultation, Clear to percussion, Normal respiratory effort, no accessory muscle use Cardiovascular: Heart regular in rate and rhythm, No murmurs, gallops, or rubs , + 2 bilateral lower extremity pitting edema improving Abdominal: Soft Nontender, nom distended, no guarding, no rebound or rigidity, Normoactive bowel sounds No hepatomegaly, No splenomegaly, No palpable mass No abdominal wall hernia noted Skin: Normal temperature, tone, texture, turgor, No induration No subcutaneous nodules, No rash, lesions, No ulcers Extremities:No digital cyanosis No clubbing, Pedal pulses intact and symmetrical Radial pulses intact and symmetrical Normal gait and station, No calf tenderness Psychiatric: Alert and oriented to person, place and time, Appropriate affect Intact judgement Neuro: Muscles Strength 5/5 in all 4 extremities, Sensation to light touch grossly present throughout, Cranial nerves II-XII grossly intact. No focal sens ory deficitsIs - Labs CBC & Chem 7: 11/30/18 06:45 12/02/18 06:26 Labs: Abnormal Lab Results - Last 24 Hours (Table) 12/01/18 12/01/18 12/01/18 Range/Units 09:44 11:28 16:31 Carbon Dioxide (22-30) mmol/L BUN (9-20) mg/dL Creatinine (0.66-1.25) mg/dL Glucose (74-99) mg/dL POC Glucose (mg/dL) 175 H 129 H 291 H (75-99) mg/dL Calcium (8.4-10.2) mg/dL 12/01/18 12/02/18 12/02/18 Range/Units 20:42 05:58 06:26 Carbon Dioxide 33 H (22-30) mmol/L BUN 42 H (9-20) mg/dL Creatinine 2.51 H (0.66-1.25) mg/dL Glucose 180 H (74-99) mg/dL POC Glucose (mg/dL) 111 H 194 H (75-99) mg/dL Calcium 8.3 L (8.4-10.2) mg/dL Assessment and Plan (1) Acute systolic (congestive) heart failure Narrative/Plan: * NT ProBNP elevation to 32,700. Chest x-ray shows cardiomegaly and mild heart failure. * Venous duplex is negative for DVT. Continue diuresis with Lasix 40 mg IV daily per renal recommendations * Continue hydralazine and Imdur. Strict in's and outs. Daily weights. Telemetry monitoring. * Echo EF is less than 20%, also showing moderate pulmonary hypertension, moderate TR, mild to moderate MR, * Dopamine drip discontinued yesterday Current Visit: Yes Status: Acute Code(s): I50.21 - ACUTE SYSTOLIC (CONGESTIVE) HEART FAILURE SNOMED Code(s): 088824575 (2) Type 2 diabetes mellitus with hyperglycemia Narrative/Plan: * Discontinued his long-acting insulin to restart his home glipizide and Januvia regimen as patient was having some episodes of hypoglycemia * Continue to monitor [id number] glucose. Regular Accu-Cheks. Hypoglycemic precautions Current Visit: Yes Status: Acute Code(s): E11.65 - TYPE 2 DIABETES MELLITUS WITH HYPERGLYCEMIA SNOMED Code(s): 239332509072344 (3) Essential hypertension Narrative/Plan: * Blood pressure stable controlled on current regimen * Continue hydralazine, discontinue Norvasc will add DARRIN inhibitor lisinopril 20 mg daily, and continue Imdur Current Visit: Yes Status: Acute Code(s): I10 - ESSENTIAL (PRIMARY) HYPERTENSION SNOMED Code(s): 09284261 (4) Ischemic cardiomyopathy Narrative/Plan: * Continue Coreg, Lipitor, aspirin and lisinopril Current Visit: Yes Status: Acute Code(s): I25.5 - ISCHEMIC CARDIOMYOPATHY SNOMED Code(s): 030427393 (5) Chronic kidney disease, stage III (moderate) Narrative/Plan: * Acute kidney injury superimposed on chronic kidney disease likely cardiorenal superimposed on diabetic nephropathy and nephrosclerosis * Renal following appreciate Dr. Cuevas's recommendations * creatinine 2.51 today previous baseline 1.7-2 Current Visit: Yes Status: Acute Code(s): N18.3 - CHRONIC KIDNEY DISEASE, STAGE 3 (MODERATE) SNOMED Code(s): 008042392 Plan: disposition * Anticipated discharge 1-2 days
[2018-12-02] MEDS: LINAGLIPTIN 5 MG TABLET PO SCH (09:40)
--- NOTE | 2018-12-02 10:19 | PN ---
PROGRESS NOTE This is a gentleman with cardiomyopathy, ejection fraction of less than 25% was on a dobutamine drip yesterday. This was discontinued after nearly more than 48 hours. I am going to continue the IV Lasix for the time being. Continue his other medications, increase activity and see how he does clinically. He also has chronic kidney disease with a creatinine in the 2.5 range. JVD is evident. S1, S2 heard normally. Short systolic murmur noted. Lungs reveal improved air entry. Abdomen is soft. Lower extremities reveal mild edema. Central nervous system is normal. MMODL / IJN: [id number] /
[2018-12-02 11:19] LABS: Glucose,Whole Blood 157 mg/dL (75-99)
[2018-12-02 16:57] LABS: Glucose,Whole Blood 164 mg/dL (75-99)
[2018-12-02] MEDS: LISINOPRIL 5 MG TAB PO SCH (20:17)
[2018-12-02 20:26] LABS: Glucose,Whole Blood 246 mg/dL (75-99)
[2018-12-03 06:28] LABS: Glucose,Whole Blood 143 mg/dL (75-99)
[2018-12-03] MEDS: glipiZIDE 10 MG TAB PO SCH ×2 (06:32→17:53)
[2018-12-03] MEDS: CARVEDILOL 6.25 MG TAB PO SCH ×2 (06:32→17:50)
[2018-12-03] MEDS: INSULIN ASPART (NovoLOG) 100 UNIT/ML VIAL SQ SCH ×4 (06:32→22:26)
[2018-12-03 07:04] LABS: Calcium 8.5 mg/dL (8.4-10.2); Potassium 4.1 mmol/L (3.5-5.1)
[2018-12-03] MEDS: ATORVASTATIN 20 MG TAB PO SCH (08:49)
[2018-12-03] MEDS: hydrALAZINE HCL 25 MG TAB PO SCH ×2 (08:49→21:24)
[2018-12-03] MEDS: LINAGLIPTIN 5 MG TABLET PO SCH (08:49)
[2018-12-03] MEDS: ASPIRIN 81 MG PO SCH (08:49)
[2018-12-03] MEDS: HEPARIN SODIUM,PORCINE 5,000 UNIT/ML 1 ML VIAL SQ SCH ×3 (08:50→23:45)
[2018-12-03] MEDS: FUROSEMIDE 10 MG/ML 4 ML VIAL IV SCH ×2 (08:50→21:33)
[2018-12-03] MEDS: ISOSORBIDE MONONITRATE ER 15 MG TAB PO SCH (08:51)
--- NOTE | 2018-12-03 10:36 | P.PN ---
Subjective Patient is seen in follow-up for acute kidney injury on chronic kidney disease. Dobutamine drip has been discontinued. He is now maintained on Lasix 40 mg IV once daily. Admits to good urine output. No vomiting or diarrhea. Patient has systolic CHF with ejection fraction of near 20%. Renal function is stable. Still admits to edema in his lower extremities. Also slightly more dyspneic today. Vital signs are stable. General: The patient appeared well nourished and normally developed. HEENT: Head exam is unremarkable. Neck is without jugular venous distension. LUNGS: Breath sounds decreased. HEART: Rate and Rhythm are regular. First and second heart sounds normal. No murmurs, rubs or gallops. ABDOMEN: Abdominal exam reveals normal bowel sounds. Non-tender and non- distended. No evidence of peritonitis. EXTREMITITES: 1+ edema. Objective - Vital Signs Vital signs: Vital Signs Temp 98 F 12/03/18 08:00 Pulse 70 12/03/18 08:00 Resp 20 12/03/18 08:00 BP 106/64 12/03/18 08:00 Pulse Ox 98 12/03/18 08:00 Intake & Output 12/02/18 12/03/18 12/03/18 18:59 06:59 18:59 Intake Total 480 118 Output Total 200 200 Balance 280 -82 Weight 64 kg Intake: Oral 480 118 Output: Urine 200 200 Other: Voiding Method Urinal # Voids 1 - Labs CBC & Chem 7: 11/30/18 06:45 12/03/18 06:15 Labs: Abnormal Lab Results - Last 24 Hours (Table) 12/02/18 12/02/18 12/02/18 Range/Units 11:17 16:55 20:24 BUN (9-20) mg/dL Creatinine (0.66-1.25) mg/dL Glucose (74-99) mg/dL POC Glucose (mg/dL) 157 H 164 H 246 H (75-99) mg/dL 12/03/18 12/03/18 Range/Units 06:15 06:27 BUN 47 H (9-20) mg/dL Creatinine 2.42 H (0.66-1.25) mg/dL Glucose 131 H (74-99) mg/dL POC Glucose (mg/dL) 143 H (75-99) mg/dL Assessment and Plan Plan: Assessment: 1. Acute kidney injury secondary to cardiorenal syndrome. Creatinine stable at 2.51 today. 2. 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 3. Systolic CHF with ejection fraction of 20%. 4. Volume overload. 5. Hypertension with chronic kidney disease. Controlled. Plan: Increase Lasix to 40 mg IV twice daily. Discussed with cardiology. Low-salt diet. Daily weights. Repeat electrolytes in the morning.
--- NOTE | 2018-12-03 11:29 | P.PN ---
Subjective Progress Note Date: 12/03/18 Principal diagnosis: CHF exacerbation Patient was seen and examined. No acute events overnight. Patient reports slight worsening in his breathing from yesterday. Patient appears tearful, states that he is unable to understand his condition despite multiple attempts at explaining. He denies any pain. States that he did not want to work with PT today due to fatigue. No nausea or vomiting. No fever or chills. Objective - Vital Signs Vital signs: Vital Signs Temp 98 F 12/03/18 08:00 Pulse 70 12/03/18 08:00 Resp 20 12/03/18 08:00 BP 106/64 12/03/18 08:00 Pulse Ox 98 12/03/18 08:00 Intake & Output 12/02/18 12/03/18 12/03/18 18:59 06:59 18:59 Intake Total 480 118 Output Total 200 200 Balance 280 -82 Weight 64 kg Intake: Oral 480 118 Output: Urine 200 200 Other: Voiding Method Urinal # Voids 1 - Exam General: [non toxic], [no distress], [appears at stated age] Derm: [warm], [dry] Head: [atraumatic], [normocephalic], [symmetric] Eyes: [EOMI], [no lid lag], [anicteric sclera] Mouth: [no lip lesion], [mucus membranes moist] Cardiovascular: [S1S2 reg], [no murmur], [positive DP bilateral] Lungs: [Decreased breath sounds bilateral], [no rhonchi, no rales] , [no accessory muscle use] Abdominal: [soft], [ nontender to palpation], [no guarding], [no appreciable organomegaly] Ext: [no gross muscle atrophy], [1+ bilateral lower extremity edema], [no contractures] Neuro: [no focal neuro deficits] Psych: [Alert], [oriented], [appropriate affect] - Labs CBC & Chem 7: 11/30/18 06:45 12/03/18 06:15 Labs: Abnormal Lab Results - Last 24 Hours (Table) 12/02/18 12/02/18 12/03/18 Range/Units 16:55 20:24 06:15 BUN 47 H (9-20) mg/dL Creatinine 2.42 H (0.66-1.25) mg/dL Glucose 131 H (74-99) mg/dL POC Glucose (mg/dL) 164 H 246 H (75-99) mg/dL 12/03/18 Range/Units 06:27 BUN (9-20) mg/dL Creatinine (0.66-1.25) mg/dL Glucose (74-99) mg/dL POC Glucose (mg/dL) 143 H (75-99) mg/dL Assessment and Plan Assessment: Assessment and Plan 1. CHF exacerbation 2. Troponin elevation 3. CKD stage III 4. Diabetes mellitus 5. Hypertension 6. DVT and GI prophylaxis 1. BNP elevation to 32,700. Chest x-ray shows cardiomegaly and mild heart failure. Venous duplex is negative for DVT. Increase diuresis with Lasix 40 mg IV 2 times a day. Echocardiogram shows EF less than 20%. Continue hydralazine and Imdur. Continue Coreg and lisinopril. Strict in's and outs. Daily weights. Telemetry monitoring. Will follow cardiology recommendations. Will follow echocardiogram results. 2. Troponin 0.048, 0.1312 with EKG showing sinus tachycardia and low voltage QRS. Likely leak from CHF. Telemetry monitoring. Continue aspirin and Lipitor. Will follow cardiology recommendations. 3. BUN 39-47, creatinine 2.34-2.42. Avoid nephrotoxins. Monitor and replace electrolytes. We'll avoid IVF due to fluid overloaded state. We'll follow nephrology recommendations. 4. Eiicg-to-dsjr glucose 143. Continue Levemir 10 units at bedtime. Regular Accu-Cheks. Hypoglycemic precautions. 5. BP 106/64. Continue hydralazine 25 mg by mouth twice a day, Imdur 15 mg by mouth daily. Continue lisinopril 5 mg by mouth daily. Continue Coreg 6.25 mg by mouth Monitor vitals, adjust medications as necessary. 6. Heparin 5000 units subcutaneously 3 times a day. Patient admitted for CHF exacerbation. Continue IV diuresis as per cardiology recommendations. Monitoring renal function as well. He is pending clinical improvement.
[2018-12-03 12:07] LABS: Glucose,Whole Blood 132 mg/dL (75-99)
--- NOTE | 2018-12-03 13:17 | PN ---
PROGRESS NOTE Mr. Acuna is a gentleman with an ejection fraction of less than 25% with heart failure who was recently diagnosed, also has renal failure. This morning he complains of more shortness of breath, feels bloated. Denies chest pain. Complains of fatigue. His weight is down, but clinically he has fine rales on both bases, which is a little more obvious than yesterday and edema of lower extremities. We will give him Lasix 40 mg IV push q.12 hours both today and tomorrow and see how he does. We will watch his creatinine closely. Discussed with the patient and also with Dr. Vasquez. He is on all other anti heart failure medications, which we will continue. Vital signs are stable, JVD is evident, S1-S2 heard normally, short systolic murmur noted. Lungs reveal fine rales over both bases. Abdomen is soft. Lower extremities reveal mild to moderate bilateral edema. MMODL / IJN: [id number] /
[2018-12-03] MEDS ORDERED: FUROSEMIDE 40 MG TAB PO SCH (15:00)
[2018-12-03 16:47] LABS: Glucose,Whole Blood 143 mg/dL (75-99)
[2018-12-03 20:43] LABS: Glucose,Whole Blood 182 mg/dL (75-99)
[2018-12-03] MEDS: LISINOPRIL 5 MG TAB PO SCH (21:22)
[2018-12-04 05:53] LABS: Glucose,Whole Blood 172 mg/dL (75-99)
[2018-12-04] MEDS: glipiZIDE 10 MG TAB PO SCH ×2 (06:47→17:11)
[2018-12-04] MEDS: INSULIN ASPART (NovoLOG) 100 UNIT/ML VIAL SQ SCH ×4 (06:47→23:03)
[2018-12-04] MEDS: CARVEDILOL 6.25 MG TAB PO SCH ×2 (06:47→17:12)
[2018-12-04 07:20] LABS: Calcium 8.9 mg/dL (8.4-10.2); Potassium 4.2 mmol/L (3.5-5.1)
[2018-12-04] MEDS ORDERED: FUROSEMIDE 20 MG TAB PO SCH (09:00)
[2018-12-04] MEDS: ASPIRIN 81 MG PO SCH (09:22)
[2018-12-04] MEDS: ATORVASTATIN 20 MG TAB PO SCH (09:23)
[2018-12-04] MEDS: FUROSEMIDE 10 MG/ML 4 ML VIAL IV SCH (09:23)
[2018-12-04] MEDS: ISOSORBIDE MONONITRATE ER 15 MG TAB PO SCH (09:23)
[2018-12-04] MEDS: LINAGLIPTIN 5 MG TABLET PO SCH (09:23)
[2018-12-04] MEDS: HEPARIN SODIUM,PORCINE 5,000 UNIT/ML 1 ML VIAL SQ SCH ×3 (09:23→23:04)
[2018-12-04] MEDS: hydrALAZINE HCL 25 MG TAB PO SCH ×2 (09:24→20:46)
[2018-12-04] MEDS ORDERED: FUROSEMIDE 10 MG/ML 10 ML VIAL IV STA ×2 (09:44→10:15)
--- NOTE | 2018-12-04 10:16 | P.PN ---
Subjective Patient is seen in follow-up for acute kidney injury on chronic kidney disease. Dobutamine drip has been discontinued. He is now maintained on Lasix 40 mg IV twice daily. Admits to good urine output. No vomiting or diarrhea. Patient has systolic CHF with ejection fraction of near 20%. Renal function is worse which is due to diuresis. Still admits to edema in his lower extremities. Vital signs are stable. General: The patient appeared well nourished and normally developed. HEENT: Head exam is unremarkable. Neck is without jugular venous distension. LUNGS: Breath sounds decreased. HEART: Rate and Rhythm are regular. First and second heart sounds normal. No murmurs, rubs or gallops. ABDOMEN: Abdominal exam reveals normal bowel sounds. Non-tender and non- distended. No evidence of peritonitis. EXTREMITITES: 1+ edema. Objective - Vital Signs Vital signs: Vital Signs Temp 97.6 F 12/04/18 04:00 Pulse 86 12/04/18 04:00 Resp 18 12/04/18 04:00 BP 120/79 12/04/18 04:00 Pulse Ox 97 12/04/18 04:00 Intake & Output 12/03/18 12/04/18 12/04/18 18:59 06:59 18:59 Intake Total 718 120 Output Total 725 675 Balance -7 -675 120 Weight 63.6 kg Intake: Oral 718 120 Output: Urine 725 675 Other: Voiding Method Urinal # Voids 1 - Labs CBC & Chem 7: 11/30/18 06:45 12/04/18 05:54 Labs: Abnormal Lab Results - Last 24 Hours (Table) 12/03/18 12/03/18 12/03/18 Range/Units 12:04 16:27 20:42 BUN (9-20) mg/dL Creatinine (0.66-1.25) mg/dL Glucose (74-99) mg/dL POC Glucose (mg/dL) 132 H 143 H 182 H (75-99) mg/dL 12/04/18 12/04/18 Range/Units 05:50 05:54 BUN 53 H (9-20) mg/dL Creatinine 2.67 H (0.66-1.25) mg/dL Glucose 168 H (74-99) mg/dL POC Glucose (mg/dL) 172 H (75-99) mg/dL Assessment and Plan Plan: Assessment: 1. Acute kidney injury secondary to cardiorenal syndrome. Renal function slightly worse which is due to diuresis. Creatinine 2.67 today. 2. 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 3. Systolic CHF with ejection fraction of 20%. 4. Volume overload. 5. Hypertension with chronic kidney disease. Controlled. Plan: Continue with diuresis. 60 mg IV Lasix this evening. Plan to transition over to oral diuretics tomorrow. Discussed with cardiology. Low-salt diet. Daily weights. Repeat electrolytes in the morning.
[2018-12-04 11:55] LABS: Glucose,Whole Blood 246 mg/dL (75-99)
--- NOTE | 2018-12-04 12:19 | P.PN ---
Subjective Progress Note Date: 12/04/18 Principal diagnosis: CHF exacerbation Patient was seen and examined. No acute events overnight. Patient reports an improvement in his breathing but continues to complain of lower extremity swelling. He complains of fatigue, unable to work with PT yesterday, states that he is willing today. He denies any chest pain, palpitations, nausea or vomiting. Objective - Vital Signs Vital signs: Vital Signs Temp 97.4 F L 12/04/18 08:00 Pulse 78 12/04/18 08:00 Resp 22 12/04/18 11:55 BP 99/67 12/04/18 08:00 Pulse Ox 97 12/04/18 08:00 Intake & Output 12/03/18 12/04/18 12/04/18 18:59 06:59 18:59 Intake Total 718 120 Output Total 725 675 50 Balance -7 -675 70 Weight 63.6 kg Intake: Oral 718 120 Output: Urine 725 675 50 Other: Voiding Method Urinal Urinal # Voids 1 1 - Exam General: [non toxic], [no distress], [appears at stated age] Derm: [warm], [dry] Head: [atraumatic], [normocephalic], [symmetric] Eyes: [EOMI], [no lid lag], [anicteric sclera] Mouth: [no lip lesion], [mucus membranes moist] Cardiovascular: [S1S2 reg], [no murmur], [positive DP bilateral] Lungs: [Decreased breath sounds bilateral], [no rhonchi, no rales] , [no accessory muscle use] Abdominal: [soft], [ nontender to palpation], [no guarding], [no appreciable organomegaly] Ext: [no gross muscle atrophy], [1+ bilateral lower extremity edema], [no contractures] Neuro: [no focal neuro deficits] Psych: [Alert], [oriented], [appropriate affect] - Labs CBC & Chem 7: 11/30/18 06:45 12/04/18 05:54 Labs: Abnormal Lab Results - Last 24 Hours (Table) 12/03/18 12/03/18 12/04/18 Range/Units 16:27 20:42 05:50 BUN (9-20) mg/dL Creatinine (0.66-1.25) mg/dL Glucose (74-99) mg/dL POC Glucose (mg/dL) 143 H 182 H 172 H (75-99) mg/dL 12/04/18 12/04/18 Range/Units 05:54 11:52 BUN 53 H (9-20) mg/dL Creatinine 2.67 H (0.66-1.25) mg/dL Glucose 168 H (74-99) mg/dL POC Glucose (mg/dL) 246 H (75-99) mg/dL Assessment and Plan Assessment: Assessment and Plan 1. CHF exacerbation 2. Troponin elevation 3. CKD stage III 4. Diabetes mellitus 5. Hypertension 6. DVT and GI prophylaxis 1. BNP elevation to 32,700. Chest x-ray shows cardiomegaly and mild heart failure. Venous duplex is negative for DVT. Increase diuresis with Lasix 60 mg IV 2 times a day, transitioned to by mouth tomorrow. Echocardiogram shows EF less than 20%. Continue hydralazine and Imdur. Continue Coreg and lisinopril. Strict in's and outs. Daily weights. Telemetry monitoring. Will follow cardiology recommendations. 2. Troponin 0.048, 0.1312 with EKG showing sinus tachycardia and low voltage QRS. Likely leak from CHF. Telemetry monitoring. Continue aspirin and Lipitor. Will follow cardiology recommendations. 3. BUN 53, creatinine 2.67, worsened today due to increase in IV Lasix. Avoid nephrotoxins. Monitor and replace electrolytes. We'll avoid IVF due to fluid overloaded state. We'll follow nephrology recommendations. 4. Riqpi-el-dagt glucose 246. Continue Levemir 10 units at bedtime. Regular Accu-Cheks. Hypoglycemic precautions. 5. BP 99/67. Continue hydralazine 25 mg by mouth twice a day, Imdur 15 mg by mouth daily. Continue lisinopril 5 mg by mouth daily. Continue Coreg 6.25 mg by mouth Monitor vitals, adjust medications as necessary. 6. Heparin 5000 units subcutaneously 3 times a day. Patient admitted for CHF exacerbation. Continue IV diuresis as per cardiology recommendations. Monitoring renal function as well. He is pending clinical improvement.
--- NOTE | 2018-12-04 15:15 | PN ---
PROGRESS NOTE A gentleman with congestive heart failure and chronic CKD, is doing little better compared to yesterday. His breathing is easier, he is less short of breath. We will continue IV Lasix today and switch him to oral Lasix 80 mg in the morning, 40 in the afternoon. We will increase activity. He feels better. His energy is somewhat improved and he is not short of breath at rest. Vitals are stable, JVD 1 cm, no carotid bruit, S1-S2 heard normally, short systolic murmur noted. Lungs reveal improved air entry. Abdomen is soft, lower extremity edema has improved. MMODL / IJN: [id number] /
[2018-12-04 16:57] LABS: Glucose,Whole Blood 117 mg/dL (75-99)
[2018-12-04 20:28] LABS: Glucose,Whole Blood 286 mg/dL (75-99)
[2018-12-04] MEDS: LISINOPRIL 5 MG TAB PO SCH (20:45)
[2018-12-05 06:19] LABS: Glucose,Whole Blood 153 mg/dL (75-99)
[2018-12-05 07:01] LABS: Calcium 8.8 mg/dL (8.4-10.2); Potassium 3.6 mmol/L (3.5-5.1)
[2018-12-05] MEDS: CARVEDILOL 6.25 MG TAB PO SCH ×2 (07:05→17:27)
[2018-12-05] MEDS: glipiZIDE 10 MG TAB PO SCH ×2 (07:05→17:28)
[2018-12-05] MEDS: INSULIN ASPART (NovoLOG) 100 UNIT/ML VIAL SQ SCH ×4 (07:05→22:16)
[2018-12-05 07:07] VITALS: RESP 18
[2018-12-05] MEDS: FUROSEMIDE 80 MG TAB PO SCH (09:37)
[2018-12-05] MEDS: LINAGLIPTIN 5 MG TABLET PO SCH (09:37)
[2018-12-05] MEDS: hydrALAZINE HCL 25 MG TAB PO SCH ×2 (09:37→22:15)
[2018-12-05] MEDS: ATORVASTATIN 20 MG TAB PO SCH (09:37)
[2018-12-05] MEDS: HEPARIN SODIUM,PORCINE 5,000 UNIT/ML 1 ML VIAL SQ SCH ×3 (09:37→22:16)
[2018-12-05] MEDS: ASPIRIN 81 MG PO SCH (09:37)
[2018-12-05] MEDS: ISOSORBIDE MONONITRATE ER 15 MG TAB PO SCH (09:37)
--- NOTE | 2018-12-05 10:47 | P.PN ---
Subjective Patient is seen in follow-up for acute kidney injury on chronic kidney disease. Admits to good urine output. No vomiting or diarrhea. Patient has systolic CHF with ejection fraction of near 20%. Renal function is stable. Edema is improving. He is now on oral diuretics. Vital signs are stable. General: The patient appeared well nourished and normally developed. HEENT: Head exam is unremarkable. Neck is without jugular venous distension. LUNGS: Breath sounds decreased. HEART: Rate and Rhythm are regular. First and second heart sounds normal. No murmurs, rubs or gallops. ABDOMEN: Abdominal exam reveals normal bowel sounds. Non-tender and non- distended. No evidence of peritonitis. EXTREMITITES: 1+ edema. Objective - Vital Signs Vital signs: Vital Signs Temp 98.3 F 12/05/18 04:00 Pulse 83 12/05/18 04:00 Resp 18 12/05/18 04:00 BP 131/84 12/05/18 04:00 Pulse Ox 95 12/05/18 09:20 Intake & Output 12/04/18 12/05/18 12/05/18 18:59 06:59 18:59 Intake Total 380 30 Output Total 500 900 125 Balance -120 -870 -125 Weight 58.9 kg Intake: IV 20 30 Invasive Line 2 20 30 Oral 360 Output: Urine 500 900 125 Other: Voiding Method Toilet Toilet # Voids 1 1 # Bowel Movements 0 0 - Labs CBC & Chem 7: 11/30/18 06:45 12/05/18 06:16 Labs: Abnormal Lab Results - Last 24 Hours (Table) 12/04/18 12/04/18 12/04/18 Range/Units 11:52 16:55 20:26 BUN (9-20) mg/dL Creatinine (0.66-1.25) mg/dL Glucose (74-99) mg/dL POC Glucose (mg/dL) 246 H 117 H 286 H (75-99) mg/dL 12/05/18 12/05/18 Range/Units 06:16 06:17 BUN 50 H (9-20) mg/dL Creatinine 2.58 H (0.66-1.25) mg/dL Glucose 134 H (74-99) mg/dL POC Glucose (mg/dL) 153 H (75-99) mg/dL Assessment and Plan Plan: Assessment: 1. Acute kidney injury secondary to cardiorenal syndrome. Renal function slightly improved. 2. 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 3. Systolic CHF with ejection fraction of 20%. 4. Volume overload. Improving with diuresis. 5. Hypertension with chronic kidney disease. Controlled. Plan: Maintain oral diuretics. I advised the patient to follow a low-salt diet as well as a 50-60 oz fluid restriction upon discharge. He will need to follow-up as an outpatient in 1-2 weeks.
[2018-12-05] MEDS ORDERED: POTASSIUM CHLORIDE ER 20 MEQ TAB.ER PO STA (11:06)
[2018-12-05 11:37] LABS: Glucose,Whole Blood 172 mg/dL (75-99)
--- NOTE | 2018-12-05 12:07 | PN ---
PROGRESS NOTE Mr. Acuna is a gentleman with recent diagnosis of severe heart failure and CKD. This morning he feels somewhat better. He clinically looks better. His edema is less. His breathing is easier. Vital signs are stable. There is JVD of 1 cm. No carotid bruit. S1, S2 heard normally. Short systolic murmur noted. Lungs reveal improved air entry. Abdomen is soft, nontender. Lower extremity edema has improved. I am recommending that we add a small dose of Zaroxolyn, leave him on oral Lasix today and increase activity and hopefully he can be discharged tomorrow if he remains stable. We will also supplement his potassium and watch his creatinine closely. Overall, he is doing better. His renal function also appears to be holding up well. He is now on Lasix 80 mg in the morning, 40 in the evening and we will continue this. MMODL / IJN: [id number] /
[2018-12-05] MEDS ORDERED: FUROSEMIDE 40 MG TAB PO SCH (15:00)
--- NOTE | 2018-12-05 17:07 | P.PN ---
Subjective Progress Note Date: 12/05/18 Principal diagnosis: CHF exacerbation Patient seen and examined. No acute events overnight. Patient reports slight improvement in his breathing. He denies chest pain or palpitations. Change to by mouth Lasix today. Objective - Vital Signs Vital signs: Vital Signs Temp 97.7 F 12/05/18 16:00 Pulse 83 12/05/18 16:00 Resp 18 12/05/18 16:00 BP 103/53 12/05/18 16:00 Pulse Ox 98 12/05/18 16:00 Intake & Output 12/04/18 12/05/18 12/05/18 18:59 06:59 18:59 Intake Total 380 30 290 Output Total 573 124 9911 Balance -120 -030 -885 Weight 58.9 kg Intake: IV 20 30 10 Invasive Line 2 20 30 10 Oral 360 280 Output: Urine 946 930 2641 Other: Voiding Method Toilet Toilet Urinal # Voids 1 1 1 # Bowel Movements 0 0 0 - Exam General: [non toxic], [no distress], [appears at stated age] Derm: [warm], [dry] Head: [atraumatic], [normocephalic], [symmetric] Eyes: [EOMI], [no lid lag], [anicteric sclera] Mouth: [no lip lesion], [mucus membranes moist] Cardiovascular: [S1S2 reg], [no murmur], [positive DP bilateral] Lungs: [Decreased breath sounds bilateral], [no rhonchi, no rales] , [no accessory muscle use] Abdominal: [soft], [ nontender to palpation], [no guarding], [no appreciable organomegaly] Ext: [no gross muscle atrophy], [1+ bilateral lower extremity edema], [no contractures] Neuro: [no focal neuro deficits] Psych: [Alert], [oriented], [appropriate affect] - Labs CBC & Chem 7: 11/30/18 06:45 12/05/18 06:16 Labs: Abnormal Lab Results - Last 24 Hours (Table) 12/04/18 12/04/18 12/05/18 Range/Units 16:55 20:26 06:16 BUN 50 H (9-20) mg/dL Creatinine 2.58 H (0.66-1.25) mg/dL Glucose 134 H (74-99) mg/dL POC Glucose (mg/dL) 117 H 286 H (75-99) mg/dL 12/05/18 12/05/18 Range/Units 06:17 11:18 BUN (9-20) mg/dL Creatinine (0.66-1.25) mg/dL Glucose (74-99) mg/dL POC Glucose (mg/dL) 153 H 172 H (75-99) mg/dL Assessment and Plan Assessment: Assessment and Plan 1. CHF exacerbation 2. Troponin elevation 3. CKD stage III 4. Diabetes mellitus 5. Hypertension 6. DVT and GI prophylaxis 1. BNP elevation to 32,700. Chest x-ray shows cardiomegaly and mild heart failure. Venous duplex is negative for DVT. IV Lasix discontinued, start Lasix 80 mg in the morning and 60 mg at night. Echocardiogram shows EF less than 20%. Continue hydralazine and Imdur. Continue Coreg and lisinopril. Strict in's and outs. Daily weights. Telemetry monitoring. Will follow cardiology recommendations. 2. Troponin 0.048, 0.1312 with EKG showing sinus tachycardia and low voltage QRS. Likely leak from CHF. Telemetry monitoring. Continue aspirin and Lipitor. Will follow cardiology recommendations. 3. BUN 53 to 50, creatinine 2.67 to 2.58, slight improvement. Avoid nephrotoxins. Monitor and replace electrolytes. We'll avoid IVF due to fluid overloaded state. We'll follow nephrology recommendations. 4. Arikt-oc-xddo glucose 172. Continue Levemir 10 units at bedtime. Regular Accu-Cheks. Hypoglycemic precautions. 5. BP 103/53. Continue hydralazine 25 mg by mouth twice a day, Imdur 15 mg by mouth daily. Continue lisinopril 5 mg by mouth daily. Continue Coreg 6.25 mg by mouth Monitor vitals, adjust medications as necessary. 6. Heparin 5000 units subcutaneously 3 times a day. Patient admitted for CHF exacerbation. Transition to by mouth Lasix. Monitoring renal function as well. Will monitor 1 more day as per cardiology recommendations, plans for discharge tomorrow hopefully.
[2018-12-05 17:30] LABS: Glucose,Whole Blood 162 mg/dL (75-99)
[2018-12-05 20:22] LABS: Glucose,Whole Blood 203 mg/dL (75-99)
[2018-12-05] MEDS: LISINOPRIL 5 MG TAB PO SCH (22:16)
[2018-12-06 06:05] LABS: Glucose,Whole Blood 235 mg/dL (75-99)
[2018-12-06] MEDS: INSULIN ASPART (NovoLOG) 100 UNIT/ML VIAL SQ SCH ×2 (06:42→12:32)
[2018-12-06] MEDS: glipiZIDE 10 MG TAB PO SCH (06:42)
[2018-12-06] MEDS: CARVEDILOL 6.25 MG TAB PO SCH (06:42)
--- NOTE | 2018-12-06 08:36 | P.PN ---
Subjective Patient is seen in follow-up for acute kidney injury on chronic kidney disease. Admits to good urine output. No vomiting or diarrhea. Patient has systolic CHF with ejection fraction of near 20%. Renal function is stable. Edema is improving. He is now on oral diuretics. No active complaints at this time. Vital signs are stable. General: The patient appeared well nourished and normally developed. HEENT: Head exam is unremarkable. Neck is without jugular venous distension. LUNGS: Breath sounds decreased. HEART: Rate and Rhythm are regular. First and second heart sounds normal. No murmurs, rubs or gallops. ABDOMEN: Abdominal exam reveals normal bowel sounds. Non-tender and non- distended. No evidence of peritonitis. EXTREMITITES: 1+ edema. Objective - Vital Signs Vital signs: Vital Signs Temp 97.4 F L 12/06/18 04:00 Pulse 85 12/06/18 04:00 Resp 18 12/06/18 04:00 BP 133/82 12/06/18 04:00 Pulse Ox 98 12/06/18 04:00 Intake & Output 12/05/18 12/06/18 12/06/18 18:59 06:59 18:59 Intake Total 290 Output Total 1175 1250 Balance -885 -1250 Weight 64.3 kg Intake: IV 10 Invasive Line 2 10 Oral 280 Output: Urine 1175 1250 Other: Voiding Method Urinal Urinal # Voids 1 1 # Bowel Movements 0 0 - Labs CBC & Chem 7: 11/30/18 06:45 12/05/18 06:16 Labs: Abnormal Lab Results - Last 24 Hours (Table) 12/05/18 12/05/18 12/05/18 Range/Units 11:18 17:14 20:20 POC Glucose (mg/dL) 172 H 162 H 203 H (75-99) mg/dL 12/06/18 Range/Units 06:03 POC Glucose (mg/dL) 235 H (75-99) mg/dL Assessment and Plan Plan: Assessment: 1. Acute kidney injury secondary to cardiorenal syndrome. Renal function is relatively stable the last few days. 2. 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 3. Systolic CHF with ejection fraction of 20%. 4. Volume overload. Improving with diuresis. 5. Hypertension with chronic kidney disease. Controlled. Plan: Maintain oral diuretics. I advised the patient to follow a low-salt diet as well as a 50-60 oz fluid restriction upon discharge. He will need to follow-up as an outpatient in 1-2 weeks.
[2018-12-06] MEDS ORDERED: METOLAZONE 2.5 MG TAB PO SCH (09:00)
[2018-12-06] MEDS: ASPIRIN 81 MG PO SCH (09:25)
[2018-12-06] MEDS: hydrALAZINE HCL 25 MG TAB PO SCH (09:25)
[2018-12-06] MEDS: ISOSORBIDE MONONITRATE ER 15 MG TAB PO SCH (09:25)
[2018-12-06] MEDS: LINAGLIPTIN 5 MG TABLET PO SCH (09:25)
[2018-12-06] MEDS: HEPARIN SODIUM,PORCINE 5,000 UNIT/ML 1 ML VIAL SQ SCH (09:25)
[2018-12-06] MEDS: ATORVASTATIN 20 MG TAB PO SCH (09:25)
[2018-12-06] MEDS: FUROSEMIDE 80 MG TAB PO SCH (09:25)
--- NOTE | 2018-12-06 10:43 | P.DS ---
Providers Date of admission: 11/29/18 09:24 Expected date of discharge: 12/06/18 Attending physician: David Lorenzo MD Consults: 11/28/18 23:21 Consult Physician Urgent Consulting Provider: Silvestre Hill Consult Reason/Comments: CHF Do you want consulting provider notified?: Yes 11/29/18 10:41 Consult Physician Stat Consulting Provider: Caitlin Cuevas Consult Reason/Comments: Renal failure Do you want consulting provider notified?: Yes Primary care physician: Violeta Comer MD Hospital Course: 73-year-old male with a PMH of type II DM, hypertension, hyperlipidemia, and CKD stage III who presented to the ED for gradually worsening shortness of breath. The patient was accompanied by his who is a retired RN and supplemented the history. He notes that over the past few weeks, he noticed worsening exercise tolerance, and increasing lower extremity edema. He would get short of breath with minimal exertion and endorsed a nonproductive cough along with orthopnea, and currently sleeps with 3 pillows. The patient notes that he has never had such symptoms before and was never diagnosed with CHF. He otherwise denied fever, chills, calf pain, recent travel, nausea, vomiting, chest pain, palpitations, sick contacts, headache, visual changes, abdominal pain, or diarrhea. In the emergency room, the patient underwent a comprehensive workup, with WBC count 6.4, hemoglobin 12.7, troponins elevated at 0.048, BNP significantly elevated at 32,700, BUN 38, and creatinine 2.25 with a baseline of 2.3. Chest x-ray revealed cardiomegaly with pulmonary venous congestion. With regard to his lower extremity swelling, venous duplex was negative for DVT. Patient was initially started on Lasix IV for diuresing and nephrology was consulted for his CKD. His IV Lasix was transitioned to Lasix 80 mg by mouth in the morning, 40 mg by mouth in the evening. Echocardiogram was done which showed an EF less than 20%. Patient was restarted on Coreg, lisinopril and combination of hydralazine and Imdur. Patient showed considerable improvement in his breathing and went from 70.3 kg on admission to 64.3 kg on discharge. His creatinine on admission was 2.25, and 2.58 on discharge. Patient was seen and examined. No acute events overnight. Patient reports improvement in his breathing. His reports considerable improvement in his lower extremity swelling. He denies any chest pain, dizziness or shortness of breath. No fever or chills. No nausea or vomiting. BMP is pending for today. General: [non toxic], [no distress], [appears at stated age] Derm: [warm], [dry] Head: [atraumatic], [normocephalic], [symmetric] Eyes: [EOMI], [no lid lag], [anicteric sclera] Mouth: [no lip lesion], [mucus membranes moist] Cardiovascular: [S1S2 reg], [no murmur], [positive DP bilateral] Lungs: [Decreased breath sounds bilateral], [no rhonchi, no rales] , [no accessory muscle use] Abdominal: [soft], [ nontender to palpation], [no guarding], [no appreciable or ganomegaly] Ext: [no gross muscle atrophy], [1+ bilateral lower extremity edema L > R], [no contractures] Neuro: [no focal neuro deficits] Psych: [Alert], [oriented], [appropriate affect] Assessment and Plan 1. CHF exacerbation 2. Troponin elevation 3. CKD stage III 4. Diabetes mellitus 5. Hypertension 6. DVT and GI prophylaxis 1. BNP elevation to 32,700. Chest x-ray shows cardiomegaly and mild heart failure. Venous duplex is negative for DVT. IV Lasix discontinued, start Lasix 80 mg in the morning and 60 mg at night. Echocardiogram shows EF less than 20%. Continue hydralazine and Imdur. Continue Coreg and lisinopril. Strict in's and outs. Daily weights. Telemetry monitoring. Will follow cardiology recommendations. 2. Troponin 0.048, 0.1312 with EKG showing sinus tachycardia and low voltage QRS. Likely leak from CHF. Telemetry monitoring. Continue aspirin and Lipitor. Will follow cardiology recommendations. 3. BUN 53 to 50, creatinine 2.67 to 2.58, slight improvement. Avoid nephrotoxins. Monitor and replace electrolytes. We'll avoid IVF due to fluid overloaded state. We'll follow nephrology recommendations. 4. Qetzc-cw-nbhr glucose 235. Continue Levemir 10 units at bedtime. Regular Accu-Cheks. Hypoglycemic precautions. 5. BP 133/82. Continue hydralazine 25 mg by mouth twice a day, Imdur 15 mg by mouth daily. Continue lisinopril 5 mg by mouth daily. Continue Coreg 6.25 mg by mouth Monitor vitals, adjust medications as necessary. 6. Heparin 5000 units subcutaneously 3 times a day. Patient admitted for CHF exacerbation. Transition to by mouth Lasix. Monitoring renal function as well. DC today pending BMP results. Pertinent Studies: Chest x-ray, echocardiogram, venous duplex Patient Condition at Discharge: Fair Plan - Discharge Summary Discharge Rx Participant: No New Discharge Prescriptions: New hydrALAZINE HCL [Apresoline] 25 mg PO BID #60 tab Aspirin 81 mg PO DAILY #30 chew Carvedilol [Coreg] 6.25 mg PO BID-W/MEALS #60 tab Isosorbide Mononitrate ER [Imdur] 15 mg PO DAILY #30 dose Furosemide [Lasix] 40 mg PO 1500 #30 tab Furosemide [Lasix] 80 mg PO AC-BRKFST #30 tab Metolazone [Zaroxolyn] 2.5 mg PO DAILY #30 tab Lisinopril [Zestril] 5 mg PO HS #30 tab Continue Simvastatin [Zocor] 40 mg PO DAILY sitaGLIPtin [Januvia] 50 mg PO DAILY glipiZIDE [Glucotrol] 10 mg PO BID Ergocalciferol [Vitamin D2 (DRISDOL)] 50,000 unit PO Q14D Sodium Chloride [Saline Nasal [place]] 1 spray EA NOSTRIL DAILY PRN PRN Reason: DRY NOSE Discontinued amLODIPine [Norvasc] 5 mg PO DAILY Telmisartan [Micardis] 40 mg PO DAILY Discharge Medication List Simvastatin [Zocor] 40 mg PO DAILY 08/26/18 [History] glipiZIDE [Glucotrol] 10 mg PO BID 08/26/18 [History] sitaGLIPtin [Januvia] 50 mg PO DAILY 08/26/18 [History] Ergocalciferol [Vitamin D2 (DRISDOL)] 50,000 unit PO Q14D 11/28/18 [History] Sodium Chloride [Saline Nasal [place]] 1 spray EA NOSTRIL DAILY PRN 11/28/18 [History] Aspirin 81 mg PO DAILY #30 chew 12/06/18 [Rx] Carvedilol [Coreg] 6.25 mg PO BID-W/MEALS #60 tab 12/06/18 [Rx] Furosemide [Lasix] 40 mg PO 1500 #30 tab 12/06/18 [Rx] Furosemide [Lasix] 80 mg PO AC-BRKFST #30 tab 12/06/18 [Rx] Isosorbide Mononitrate ER [Imdur] 15 mg PO DAILY #30 dose 12/06/18 [Rx] Lisinopril [Zestril] 5 mg PO HS #30 tab 12/06/18 [Rx] Metolazone [Zaroxolyn] 2.5 mg PO DAILY #30 tab 12/06/18 [Rx] hydrALAZINE HCL [Apresoline] 25 mg PO BID #60 tab 12/06/18 [Rx] Follow up Appointment(s)/Referral(s): Violeta Comer MD [Primary Care Provider] - 12/09/18 3:00 pm (Sunday) [facility], [NON-STAFF] - Jose J Bunn MD [STAFF PHYSICIAN] - 1 Week Patient Instructions/Handouts: Hydralazine (By mouth), Dobutamine (By injection), Isosorbide Mononitrate (By mouth), Heart Failure (DC) Activity/Diet/Wound Care/Special Instructions: Diet: Heart healthy, low-salt Please follow low-salt diet, 50-60 ounces fluid restriction. Take all medications as advised. Follow-up with PCP within 1-2 days of discharge. Follow-up with cardiology within 1 week of discharge. Discharge Disposition: HOME SELF-CARE
[2018-12-06 11:40] VITALS: BMI 23.6
[2018-12-06 11:48] LABS: Calcium 8.7 mg/dL (8.4-10.2); Potassium 4.3 mmol/L (3.5-5.1)
[2018-12-06 11:55] LABS: Glucose,Whole Blood 212 mg/dL (75-99)
[2018-12-06 11:57] VITALS: TEMP 97.6
--- NOTE | 2018-12-06 13:13 | P.PN ---
Subjective Progress Note Date: 12/06/18 Is a 73-year-old gentleman with history of diabetes, hypertension, hyperlipidemia, renal failure, admitted to the hospital with congestive cardiac failure. He has been diuresed well, today he's been up ambulating with physical therapy tolerating it well. Hemodynamically he has been stable. Blood pressure 104/60 with a heart rate in the 70s, 96% on room air. Sodium 140, potassium 4.3, BUN 55 and creatinine 2.5. Objective - Vital Signs Vital signs: Vital Signs Temp 97.6 F 12/06/18 08:00 Pulse 76 12/06/18 08:00 Resp 18 12/06/18 08:00 BP 105/65 12/06/18 08:00 Pulse Ox 96 12/06/18 09:18 Intake & Output 12/05/18 12/06/18 12/06/18 18:59 06:59 18:59 Intake Total 290 Output Total 1175 1250 Balance -885 -1250 Weight 64.3 kg 64.3 kg Intake: IV 10 Invasive Line 2 10 Oral 280 Output: Urine 1175 1250 Other: Voiding Method Urinal Urinal Urinal # Voids 1 1 # Bowel Movements 0 0 - Exam GENERAL EXAM: Patient is alert and oriented and in mild to moderate respiratory distress HEENT: Normocephalic. Normal reaction of pupils, equal size, normal range of extraocular motion. No erythema or exudates in the throat. NECK: No masses, no nuchal rigidity. Increased JVD CHEST: No chest wall deformity. LUNGS: Diminished breath sounds at bases HEART: S1 and S2 normal ABDOMEN: No hepatosplenomegaly, normal bowel sounds, no guarding or rigidity. SKIN: No rashes CENTRAL NERVOUS SYSTEM: No focal deficits. EXTREMITIES: Significant bilateral edema - Labs CBC & Chem 7: 11/30/18 06:45 12/06/18 10:59 Labs: Abnormal Lab Results - Last 24 Hours (Table) 12/05/18 12/05/18 12/06/18 Range/Units 17:14 20:20 06:03 BUN (9-20) mg/dL Creatinine (0.66-1.25) mg/dL Glucose (74-99) mg/dL POC Glucose (mg/dL) 162 H 203 H 235 H (75-99) mg/dL 12/06/18 12/06/18 Range/Units 10:59 11:52 BUN 55 H (9-20) mg/dL Creatinine 2.54 H (0.66-1.25) mg/dL Glucose 243 H (74-99) mg/dL POC Glucose (mg/dL) 212 H (75-99) mg/dL Assessment and Plan Plan: Assessment and plan #1 systolic congestive heart failure acute on chronic #2 ischemic cardio myopathy #3 chronic renal failure #4 diabetes Plan From cardiology's perspective, patient may be able to be discharged home today. We will make him a follow-up appointment to see Dr. Olmstead in the office post discharge. DNP note has been reviewed, I agree with a documented findings and plan of care. Patient was seen and examined.
[2018-12-06 14:01] VITALS: BP 112/66; PULSE 79
== END 2018-12-06 14:26 | disposition home health service (06) | DRG 291 ==
LOC: EC 18:51 → 3SCARD 20:08 → OBSVTOIN 11-29 09:24
PROVIDERS: ADMIT Internal Medicine; ATTEND Internal Medicine
DX: I13.0 Hypertensive heart and chronic kidney disease with heart failure and stage 1 through stage 4 chronic kidney disease, or unspecified chronic kidney disease (principal); I50.23 Acute on chronic systolic (congestive) heart failure; E87.3 Alkalosis; I24.8 Other forms of acute ischemic heart disease; N17.9 Acute kidney failure, unspecified; N18.4 Chronic kidney disease, stage 4 (severe); E11.22 Type 2 diabetes mellitus with diabetic chronic kidney disease; E11.65 Type 2 diabetes mellitus with hyperglycemia; I27.20 Pulmonary hypertension, unspecified; I25.5 Ischemic cardiomyopathy; I08.1 Rheumatic disorders of both mitral and tricuspid valves; E78.00 Pure hypercholesterolemia, unspecified; E78.5 Hyperlipidemia, unspecified; I25.10 Atherosclerotic heart disease of native coronary artery without angina pectoris; I25.2 Old myocardial infarction; T50.2X5A Adverse effect of carbonic-anhydrase inhibitors, benzothiadiazides and other diuretics, initial encounter; R32 Unspecified urinary incontinence; Z79.82 Long term (current) use of aspirin; Z79.899 Other long term (current) drug therapy; Z79.84 Long term (current) use of oral hypoglycemic drugs; Z85.46 Personal history of malignant neoplasm of prostate; Z88.2 Allergy status to sulfonamides; Z91.013 Allergy to seafood; Z98.42 Cataract extraction status, left eye; Z98.41 Cataract extraction status, right eye; Z96.1 Presence of intraocular lens
CPT/HCPCS: 36415; 71046; 80048; 80053; 81001; 83735; 83880; 84484; 85025; 85027; 85379; 85610; 85730; 93005; 93306; 93970; 94640; 94760; 99285

== ENCOUNTER → 2018-12-12 | Outpatient (CLI) | payer MEDICARE ==
[2018-12-12 16:16] LABS: Anion Gap 7.4 mmol/L (4.00-12.00); Calcium 9.6 mg/dL (8.7-10.3); Carbon Dioxide 35.6 mmol/L (21.6-31.8)
== END | disposition home or self-care (01) ==
LOC: LABWHC1 10:31
DX: I13.0 Hypertensive heart and chronic kidney disease with heart failure and stage 1 through stage 4 chronic kidney disease, or unspecified chronic kidney disease (principal); I50.23 Acute on chronic systolic (congestive) heart failure
CPT/HCPCS: 36415; 80048

== ENCOUNTER → 2018-12-24 | Outpatient (CLI) | payer MEDICARE ==
[2018-12-24 15:08] LABS: Basophils % (A) 1 %; Eosinophils # (A) 0.3 k/uL (0-0.7); Eosinophils % (A) 6 %; HCT 39.6 % (39.0-53.0); HGB 12.8 gm/dL (13.0-17.5); Lymphocytes # (A) 0.8 k/uL (1.0-4.8); Lymphocytes % (A) 16 %; MCH 31.2 pg (25.0-35.0); MCHC 32.2 g/dL (31.0-37.0); MCV 96.8 fL (80.0-100.0); Monocytes # (A) 0.3 k/uL (0-1.0); Monocytes % (A) 6 %; Neutrophils # (A) 3.2 k/uL (1.3-7.7); Neutrophils % (A) 68 %; Platelet Count 167 k/uL (150-450); RBC 4.09 m/uL (4.30-5.90); RDW 13.3 % (11.5-15.5); WBC 4.8 k/uL (3.8-10.6)
[2018-12-24 23:00] LABS: Iron Saturation 29.52 (15.00-50.00)
[2018-12-24 23:10] LABS: Vitamin D 25 Hydroxy 74.7 ng/mL (30.0-100.0)
[2018-12-24 23:28] LABS: Albumin 4.4 g/dL (3.80-4.90); Anion Gap 8.4 mmol/L (4.00-12.00); Calcium 9.6 mg/dL (8.7-10.3); Carbon Dioxide 33.6 mmol/L (21.6-31.8); Magnesium 2.6 mg/dL (1.5-2.4); Phosphorus 5.1 mg/dL (2.4-5.1); Potassium 4.5 mmol/L (3.5-5.5); Uric Acid 11.7 mg/dL (3.7-8.7)
== END | disposition home or self-care (01) ==
LOC: LABWHC1 12:14
PROVIDERS: ATTEND Internal Medicine Nephrology
DX: N18.4 Chronic kidney disease, stage 4 (severe) (principal); E55.9 Vitamin D deficiency, unspecified; M10.9 Gout, unspecified; D63.1 Anemia in chronic kidney disease
CPT/HCPCS: 36415; 80048; 82040; 82306; 82728; 83540; 83550; 83735; 83970; 84100; 84550; 85025

== ENCOUNTER → 2019-01-14 | Outpatient (CLI) | payer MEDICARE ==
[2019-01-14 10:41] LABS: Appearance,Urine Clear (Clear); Bilirubin,Urine Negative (Negative); Blood,Urine Negative (Negative); Color,Urine Light Yellow; Glucose,Urine (UA) 3+ (Negative); Ketones,Urine Negative (Negative); Leukocyte Esterase,Urine Negative (Negative); Nitrite,Urine Negative (Negative); Protein,Urine Negative (Negative); Specific Gravity,Urine 1.009 (1.001-1.035); Urobilinogen,Urine <2.0 mg/dL (<2.0)
[2019-01-14 10:53] LABS: Basophils % (A) 0 %; Eosinophils # (A) 0.4 k/uL (0-0.7); Eosinophils % (A) 7 %; HCT 36.9 % (39.0-53.0); Lymphocytes # (A) 0.8 k/uL (1.0-4.8); Lymphocytes % (A) 14 %; MCH 31.7 pg (25.0-35.0); MCHC 32.5 g/dL (31.0-37.0); MCV 97.5 fL (80.0-100.0); Monocytes # (A) 0.2 k/uL (0-1.0); Monocytes % (A) 4 %; Neutrophils # (A) 3.9 k/uL (1.3-7.7); Neutrophils % (A) 72 %; Platelet Count 144 k/uL (150-450); RBC 3.79 m/uL (4.30-5.90); RDW 13.4 % (11.5-15.5); WBC 5.5 k/uL (3.8-10.6)
[2019-01-14 16:16] LABS: Iron Saturation 27.76 (15.00-50.00)
[2019-01-14 16:24] LABS: Vitamin D 25 Hydroxy 56.9 ng/mL (30.0-100.0)
[2019-01-14 16:28] LABS: African American GFR (CKD) 28.9 (60.0-200.0); Albumin 4.3 g/dL (3.80-4.90); Anion Gap 10.5 mmol/L (4.00-12.00); Calcium 9.1 mg/dL (8.7-10.3); Carbon Dioxide 27.5 mmol/L (21.6-31.8); Magnesium 2.1 mg/dL (1.5-2.4); Phosphorus 4.4 mg/dL (2.4-5.1); Uric Acid 9.7 mg/dL (3.7-8.7)
[2019-01-14 17:15] LABS: Parathyroid Hormone Intact 94.3 pg/mL (14.0-72.0)
[2019-01-14 17:48] LABS: Creatinine,Urine Random 28.5 mg/dL
== END ==
LOC: LABWHC1 09:50
PROVIDERS: ATTEND Internal Medicine Nephrology
DX: E55.9 Vitamin D deficiency, unspecified (principal); M10.9 Gout, unspecified; N39.0 Urinary tract infection, site not specified; D63.1 Anemia in chronic kidney disease; N18.4 Chronic kidney disease, stage 4 (severe); N25.81 Secondary hyperparathyroidism of renal origin; R80.9 Proteinuria, unspecified
CPT/HCPCS: 36415; 80048; 81003; 82040; 82306; 82570; 82728; 83540; 83550; 83735; 83970; 84100; 84156; 84550; 85025

== ENCOUNTER → 2019-02-25 | Outpatient (CLI) | payer MEDICARE ==
[2019-02-25 19:19] LABS: African American GFR (CKD) 25.2 (60.0-200.0); BUN/Creat Ratio 19.64 Ratio (12.00-20.00); Calcium 9.1 mg/dL (8.7-10.3); Potassium 4.3 mmol/L (3.5-5.5)
[2019-02-25 20:58] LABS: Hemoglobin A1C 8.8 % (4.0-6.0)
== END | disposition home or self-care (01) ==
LOC: LABWHC1 09:43
PROVIDERS: ATTEND Nurse Practitioner Family
DX: E11.22 Type 2 diabetes mellitus with diabetic chronic kidney disease (principal); N18.4 Chronic kidney disease, stage 4 (severe); E11.65 Type 2 diabetes mellitus with hyperglycemia
CPT/HCPCS: 36415; 80048; 83036

== ENCOUNTER → 2019-04-28 | Outpatient (CLI) | payer MEDICARE ==
[2019-04-28 11:37] LABS: Appearance,Urine Clear (Clear); Bilirubin,Urine Negative (Negative); Blood,Urine Negative (Negative); Color,Urine Light Yellow; Glucose,Urine (UA) Negative (Negative); Ketones,Urine Negative (Negative); Leukocyte Esterase,Urine Negative (Negative); Nitrite,Urine Negative (Negative); Protein,Urine Negative (Negative); Specific Gravity,Urine 1.009 (1.001-1.035); Urobilinogen,Urine <2.0 mg/dL (<2.0)
[2019-04-28 12:06] LABS: Basophils % (A) 0 %; Eosinophils # (A) 0.5 k/uL (0-0.7); Eosinophils % (A) 5 %; HCT 33.3 % (39.0-53.0); HGB 11.4 gm/dL (13.0-17.5); Lymphocytes % (A) 12 %; MCH 34.4 pg (25.0-35.0); MCHC 34.1 g/dL (31.0-37.0); Macrocytosis Slight; Mean Platelet Volume 8.8; Monocytes # (A) 0.5 k/uL (0-1.0); Monocytes % (A) 5 %; Neutrophils # (A) 6.4 k/uL (1.3-7.7); Neutrophils % (A) 76 %; Platelet Count 151 k/uL (150-450); RDW 13.6 % (11.5-15.5); WBC 8.4 k/uL (3.8-10.6)
[2019-04-28 16:22] LABS: African American GFR (CKD) 26.3 (60.0-200.0); Albumin 4.4 g/dL (3.80-4.90); Anion Gap 7.6 mmol/L (4.00-12.00); BUN/Creat Ratio 24.81 Ratio (12.00-20.00); Carbon Dioxide 27.4 mmol/L (21.6-31.8); Magnesium 2.4 mg/dL (1.5-2.4); Non-African American GFR(CKD) 22.7 (60.0-200.0); Phosphorus 5.1 mg/dL (2.4-5.1); Potassium 4.3 mmol/L (3.5-5.5); Uric Acid 7.5 mg/dL (3.7-8.7)
[2019-04-28 16:46] LABS: Iron Saturation 24.01 (15.00-50.00)
[2019-04-28 16:54] LABS: Ferritin 259.1 ng/mL (22.0-322.0)
[2019-04-28 19:16] LABS: Creatinine,Urine Random 51.4 mg/dL
[2019-04-28 19:25] LABS: Total Protein,Urine Random 10.1 mg/dL (0.0-13.5)
== END | disposition home or self-care (01) ==
LOC: LABWHC1 10:22
PROVIDERS: ATTEND Nurse Practitioner Family
DX: E55.9 Vitamin D deficiency, unspecified (principal); N25.81 Secondary hyperparathyroidism of renal origin; M10.9 Gout, unspecified; N39.0 Urinary tract infection, site not specified; D63.1 Anemia in chronic kidney disease; R80.9 Proteinuria, unspecified; N18.4 Chronic kidney disease, stage 4 (severe)
CPT/HCPCS: 36415; 80048; 81003; 82040; 82306; 82570; 82728; 83540; 83550; 83735; 83970; 84100; 84156; 84550; 85025

== ENCOUNTER → 2019-06-11 | Outpatient (CLI) | payer MEDICARE ==
[2019-06-11 17:18] LABS: Chol/HDL Ratio 3.65; LDL Cholesterol,Calculated 50.4 mg/dL (0.0-131.0); VLDL Calculation 39.6 mg/dL (5.00-40.00)
[2019-06-11 18:30] LABS: Hemoglobin A1C 8.9 % (4.0-6.0)
== END ==
LOC: LABWHC1 08:22
PROVIDERS: ATTEND Family Medicine
DX: E11.65 Type 2 diabetes mellitus with hyperglycemia (principal); E78.5 Hyperlipidemia, unspecified
CPT/HCPCS: 36415; 80061; 82947; 83036; 84450; 84460

== ENCOUNTER → 2019-07-21 | Outpatient (CLI) | payer MEDICARE ==
[2019-07-21 11:28] LABS: Basophils % (A) 0 %; Eosinophils # (A) 0.4 k/uL (0-0.7); Eosinophils % (A) 5 %; HCT 34.7 % (39.0-53.0); HGB 11.6 gm/dL (13.0-17.5); Lymphocytes # (A) 1.1 k/uL (1.0-4.8); Lymphocytes % (A) 14 %; MCH 33.7 pg (25.0-35.0); MCHC 33.4 g/dL (31.0-37.0); MCV 101.1 fL (80.0-100.0); Mean Platelet Volume 7.4; Monocytes # (A) 0.4 k/uL (0-1.0); Monocytes % (A) 4 %; Neutrophils # (A) 6.2 k/uL (1.3-7.7); Neutrophils % (A) 75 %; Platelet Count 163 k/uL (150-450); RBC 3.43 m/uL (4.30-5.90); RDW 12.7 % (11.5-15.5); WBC 8.2 k/uL (3.8-10.6)
[2019-07-21 11:37] LABS: Appearance,Urine Clear (Clear); Bilirubin,Urine Negative (Negative); Blood,Urine Negative (Negative); Color,Urine Light Yellow; Glucose,Urine (UA) Trace (Negative); Ketones,Urine Negative (Negative); Leukocyte Esterase,Urine Negative (Negative); Nitrite,Urine Negative (Negative); Protein,Urine Trace (Negative); Specific Gravity,Urine 1.008 (1.001-1.035); Urobilinogen,Urine <2.0 mg/dL (<2.0)
[2019-07-21 18:18] LABS: Creatinine,Urine Random 39.2 mg/dL
[2019-07-21 18:28] LABS: % Iron Saturation 28.2 (15.00-50.00); African American GFR (CKD) 28.7 (60.0-200.0); Albumin 4.8 g/dL (3.80-4.90); Anion Gap 8.3 mmol/L (4.00-12.00); BUN/Creat Ratio 19.6 Ratio (12.00-20.00); Calcium 9.3 mg/dL (8.7-10.3); Carbon Dioxide 29.7 mmol/L (21.6-31.8); Magnesium 2.4 mg/dL (1.5-2.4); Phosphorus 4.1 mg/dL (2.4-5.1); Potassium 4.3 mmol/L (3.5-5.5)
[2019-07-21 18:37] LABS: Ferritin 246.6 ng/mL (22.0-322.0)
[2019-07-21 19:27] LABS: Total Protein,Urine Random 17.8 mg/dL (0.0-13.5)
== END | disposition home or self-care (01) ==
LOC: LABWHC1 10:10
PROVIDERS: ATTEND Nurse Practitioner Family
DX: N18.4 Chronic kidney disease, stage 4 (severe) (principal); D63.1 Anemia in chronic kidney disease; N39.0 Urinary tract infection, site not specified; E55.9 Vitamin D deficiency, unspecified; N25.81 Secondary hyperparathyroidism of renal origin; M10.9 Gout, unspecified; R80.9 Proteinuria, unspecified
CPT/HCPCS: 36415; 80048; 81003; 82040; 82306; 82570; 82728; 83540; 83550; 83735; 83970; 84100; 84156; 84550; 85025

== ENCOUNTER → 2019-12-30 | Outpatient (CLI) | payer MEDICARE ==
[2019-12-30 08:34] LABS: Basophils % (A) 0 %; Eosinophils # (A) 0.5 k/uL (0-0.7); Eosinophils % (A) 7 %; HCT 33.9 % (39.0-53.0); HGB 11.4 gm/dL (13.0-17.5); Lymphocytes # (A) 1.2 k/uL (1.0-4.8); Lymphocytes % (A) 17 %; MCH 33.1 pg (25.0-35.0); MCHC 33.7 g/dL (31.0-37.0); MCV 98.3 fL (80.0-100.0); Mean Platelet Volume 8.9; Monocytes # (A) 0.4 k/uL (0-1.0); Monocytes % (A) 5 %; Neutrophils % (A) 70 %; Platelet Count 182 k/uL (150-450); RBC 3.45 m/uL (4.30-5.90); RDW 12.7 % (11.5-15.5); WBC 7.2 k/uL (3.8-10.6)
[2019-12-30 08:48] LABS: Protein/Creatinine Ratio,Urine 1.257
[2019-12-30 08:49] LABS: Appearance,Urine Cloudy (Clear); Bilirubin,Urine Negative (Negative); Blood,Urine Trace (Negative); Color,Urine Light Yellow; Glucose,Urine (UA) 4+ (Negative); Ketones,Urine Negative (Negative); Leukocyte Esterase,Urine Negative (Negative); Mucus,Urine Rare /hpf; Nitrite,Urine Negative (Negative); PH, Urine 6.5 (5.0-8.0); Protein,Urine 1+ (Negative); RBC,Urine 11 /hpf (0-5); Specific Gravity,Urine 1.008 (1.001-1.035); Urobilinogen,Urine <2.0 mg/dL (<2.0); WBC,Urine 6 /hpf (0-5)
[2019-12-30 15:39] LABS: % Iron Saturation 22.73 (15.00-50.00); African American GFR (CKD) 28.7 (60.0-200.0); Albumin 4.4 g/dL (3.80-4.90); Anion Gap 11.8 mmol/L (4.00-12.00); Calcium 9.4 mg/dL (8.7-10.3); Carbon Dioxide 30.2 mmol/L (21.6-31.8); Magnesium 2.2 mg/dL (1.5-2.4); Non-African American GFR(CKD) 24.7 (60.0-200.0); Potassium 4.1 mmol/L (3.5-5.5); Uric Acid 6.5 mg/dL (3.7-8.7)
[2019-12-30 15:45] LABS: Hemoglobin A1C 10.7 % (4.0-6.0)
[2019-12-30 15:48] LABS: Ferritin 254.8 ng/mL (22.0-322.0)
== END | disposition home or self-care (01) ==
LOC: LABWHC1 08:06
PROVIDERS: ATTEND Internal Medicine Nephrology
DX: N25.81 Secondary hyperparathyroidism of renal origin (principal); N18.4 Chronic kidney disease, stage 4 (severe); M10.9 Gout, unspecified; N39.0 Urinary tract infection, site not specified; D64.9 Anemia, unspecified; R80.9 Proteinuria, unspecified; E11.9 Type 2 diabetes mellitus without complications; N40.0 Benign prostatic hyperplasia without lower urinary tract symptoms
CPT/HCPCS: 36415; 80048; 81001; 82040; 82306; 82570; 82728; 83036; 83540; 83550; 83735; 83970; 84100; 84153; 84156; 84550; 85025

== ENCOUNTER → 2020-05-28 | Outpatient (CLI) | payer MEDICARE ==
--- NOTE | 2020-05-28 13:27 | US ---
EXAMINATION TYPE: US kidneys/renal and bladder DATE OF EXAM: 05/28/2020 COMPARISON: NONE CLINICAL HISTORY: N18.4 kidney disease stage 4. CKD EXAM MEASUREMENTS: Right Kidney: 10.0 x 4.7 x 4.5 cm Left Kidney: 10.1 x 4.9 x 3.7 cm Right Kidney: no evidence of hydronephrosis Left Kidney: no evidence of hydronephrosis Bladder: appears wnl Bilateral Jets seen: no There is no evidence for hydronephrosis at this point in time. No nephrolithiasis is seen. No nestor s are identified. Cortical medullary differentiation is maintained bilaterally. The urinary bladder i s anechoic. IMPRESSION: Renal sizes as described, no hydronephrosis.
== END | disposition home or self-care (01) ==
LOC: RADUSWWP 12:14
PROVIDERS: ATTEND Internal Medicine Nephrology
DX: N18.4 Chronic kidney disease, stage 4 (severe) (principal)
CPT/HCPCS: 76770

== ENCOUNTER → 2020-08-10 | Outpatient (CLI) | payer MEDICARE ==
[2020-08-10 11:08] LABS: Appearance,Urine Clear (Clear); Bilirubin,Urine Negative (Negative); Blood,Urine Negative (Negative); Color,Urine Light Yellow; Glucose,Urine (UA) Negative (Negative); Ketones,Urine Negative (Negative); Leukocyte Esterase,Urine Negative (Negative); Nitrite,Urine Negative (Negative); PH, Urine 5.5 (5.0-8.0); Protein,Urine Negative (Negative); Urobilinogen,Urine <2.0 mg/dL (<2.0)
[2020-08-10 11:09] LABS: Basophils % (A) 0 %; Eosinophils # (A) 0.2 k/uL (0-0.7); Eosinophils % (A) 3 %; HGB 10.3 gm/dL (13.0-17.5); Lymphocytes # (A) 0.8 k/uL (1.0-4.8); Lymphocytes % (A) 13 %; MCH 33.7 pg (25.0-35.0); MCHC 32.2 g/dL (31.0-37.0); MCV 104.4 fL (80.0-100.0); Macrocytosis Moderate; Mean Platelet Volume 8.2; Monocytes # (A) 0.3 k/uL (0-1.0); Monocytes % (A) 5 %; Neutrophils % (A) 77 %; Platelet Count 147 k/uL (150-450); RBC 3.06 m/uL (4.30-5.90); RDW 14.1 % (11.5-15.5); WBC 6.5 k/uL (3.8-10.6)
[2020-08-10 11:31] LABS: Protein/Creatinine Ratio,Urine 0.261
[2020-08-10 16:05] LABS: % Iron Saturation 25.23 (15.00-50.00); African American GFR (CKD) 17.7 (60.0-200.0); Albumin 4.2 g/dL (3.80-4.90); Anion Gap 9.2 mmol/L (4.00-12.00); BUN/Creat Ratio 20.27 Ratio (12.00-20.00); Calcium 9.2 mg/dL (8.7-10.3); Carbon Dioxide 28.8 mmol/L (21.6-31.8); Magnesium 2.3 mg/dL (1.5-2.4); Non-African American GFR(CKD) 15.3 (60.0-200.0); Phosphorus 5.4 mg/dL (2.4-5.1); Potassium 4.5 mmol/L (3.5-5.5); Uric Acid 6.8 mg/dL (3.7-8.7)
[2020-08-10 16:14] LABS: Ferritin 165.9 ng/mL (22.0-322.0)
== END | disposition home or self-care (01) ==
LOC: LABWHC1 09:25
PROVIDERS: ATTEND Nurse Practitioner Family
DX: N39.0 Urinary tract infection, site not specified (principal); N18.4 Chronic kidney disease, stage 4 (severe); E55.9 Vitamin D deficiency, unspecified; E21.3 Hyperparathyroidism, unspecified; D63.1 Anemia in chronic kidney disease; M10.9 Gout, unspecified; N25.81 Secondary hyperparathyroidism of renal origin
CPT/HCPCS: 36415; 80048; 81003; 82040; 82306; 82570; 82728; 83540; 83550; 83735; 83970; 84100; 84156; 84550; 85025

== ENCOUNTER → 2020-09-16 | Outpatient (CLI) | payer MEDICARE ==
[2020-09-16 09:21] LABS: Basophils % (A) 0 %; Eosinophils # (A) 0.3 k/uL (0-0.7); Eosinophils % (A) 3 %; HCT 31.3 % (39.0-53.0); HGB 10.2 gm/dL (13.0-17.5); Lymphocytes # (A) 0.7 k/uL (1.0-4.8); Lymphocytes % (A) 10 %; MCH 33.5 pg (25.0-35.0); MCHC 32.5 g/dL (31.0-37.0); MCV 103.2 fL (80.0-100.0); Macrocytosis Slight; Mean Platelet Volume 8.3; Monocytes # (A) 0.4 k/uL (0-1.0); Monocytes % (A) 5 %; Neutrophils # (A) 5.8 k/uL (1.3-7.7); Neutrophils % (A) 80 %; Platelet Count 174 k/uL (150-450); RBC 3.03 m/uL (4.30-5.90); RDW 13.4 % (11.5-15.5); WBC 7.2 k/uL (3.8-10.6)
[2020-09-16 09:27] LABS: Appearance,Urine Clear (Clear); Bilirubin,Urine Negative (Negative); Blood,Urine Negative (Negative); Color,Urine Light Yellow; Glucose,Urine (UA) Negative (Negative); Ketones,Urine Negative (Negative); Leukocyte Esterase,Urine Negative (Negative); Nitrite,Urine Negative (Negative); PH, Urine 5.5 (5.0-8.0); Protein,Urine Trace (Negative); Urobilinogen,Urine <2.0 mg/dL (<2.0)
[2020-09-16 20:59] LABS: % Iron Saturation 16.98 (15.00-50.00); African American GFR (CKD) 21.1 (60.0-200.0); Albumin 4.6 g/dL (3.80-4.90); Anion Gap 13.1 mmol/L (4.00-12.00); BUN/Creat Ratio 18.13 Ratio (12.00-20.00); Calcium 8.9 mg/dL (8.7-10.3); Carbon Dioxide 26.9 mmol/L (21.6-31.8); Chol/HDL Ratio 2.86; LDL Cholesterol,Calculated 62.6 mg/dL (0.0-131.0); Magnesium 2.3 mg/dL (1.5-2.4); Non-African American GFR(CKD) 18.2 (60.0-200.0); Phosphorus 4.3 mg/dL (2.4-5.1); Potassium 4.1 mmol/L (3.5-5.5); VLDL Calculation 17.4 mg/dL (5.00-40.00)
[2020-09-16 21:07] LABS: Ferritin 155.9 ng/mL (22.0-322.0)
[2020-09-16 22:26] LABS: Total Protein,Urine Random 24.1 mg/dL (0.0-13.5)
[2020-09-16 22:46] LABS: Hemoglobin A1C 7.4 % (4.0-6.0)
== END | disposition home or self-care (01) ==
LOC: LABWHC1 08:46
PROVIDERS: ATTEND Nurse Practitioner Family
DX: N18.4 Chronic kidney disease, stage 4 (severe) (principal); E11.22 Type 2 diabetes mellitus with diabetic chronic kidney disease; D63.1 Anemia in chronic kidney disease; E55.9 Vitamin D deficiency, unspecified; N25.81 Secondary hyperparathyroidism of renal origin; M10.9 Gout, unspecified; N39.0 Urinary tract infection, site not specified; R80.9 Proteinuria, unspecified
CPT/HCPCS: 36415; 80048; 80061; 81003; 82040; 82306; 82570; 82728; 83036; 83540; 83550; 83735; 83970; 84100; 84156; 84550; 85025

== ENCOUNTER → 2021-02-15 | Outpatient (CLI) | payer MEDICARE ==
[2021-02-15 10:04] LABS: Appearance,Urine Clear (Clear); Bilirubin,Urine Negative (Negative); Blood,Urine Negative (Negative); Color,Urine Light Yellow; Glucose,Urine (UA) Negative (Negative); Ketones,Urine Negative (Negative); Leukocyte Esterase,Urine Negative (Negative); Nitrite,Urine Negative (Negative); PH, Urine 5.5 (5.0-8.0); Protein,Urine 1+ (Negative); RBC,Urine 3 /hpf (0-5); Specific Gravity,Urine 1.015 (1.001-1.035); Urobilinogen,Urine <2.0 mg/dL (<2.0); WBC,Urine <1 /hpf (0-5)
[2021-02-15 10:39] LABS: Protein/Creatinine Ratio,Urine 0.712
[2021-02-15 17:08] LABS: HCT 34.3 % (39.6-50.0); HGB 10.8 g/dL (13.0-17.0); MCH 33.4 pg (27.0-32.0); MCHC 31.5 g/dL (32.0-37.0); MCV 106.2 fL (80.0-97.0); Mean Platelet Volume 11.5 fL (9.5-12.2); Platelet Count 144 X 10*3/uL (140-440); RBC 3.23 X 10*6/uL (4.40-5.60); RDW 13.5 % (11.5-14.5); WBC 7.27 X 10*3/uL (4.50-10.00)
[2021-02-15 17:20] LABS: % Iron Saturation 22.62 (15.00-50.00); ALT 16 U/L (10-49); AST 20 U/L (14-35); African American GFR (CKD) 22.8 (60.0-200.0); Albumin/Globulin Ratio 1.63 (1.60-3.17); Alkaline Phosphatase 71 U/L (41-126); Bilirubin, Conjugated <0.20 mg/dL (0.20-0.40); Calcium 8.8 mg/dL (8.7-10.3); Carbon Dioxide 26.1 mmol/L (21.6-31.8); Chloride 105 mmol/L (96-109); Chol/HDL Ratio 2.67; Cholesterol 123 mg/dL (0-200); Globulin 2.7 g/dL (1.6-3.3); Glucose 157 mg/dL (70-110); Iron 76 ug/dL (65-175); LDL Cholesterol,Calculated 61.4 mg/dL (0.0-131.0); Magnesium 2.3 mg/dL (1.5-2.4); Non-African American GFR(CKD) 19.7 (60.0-200.0); Phosphorus 4.1 mg/dL (2.4-5.1); Potassium 4.6 mmol/L (3.5-5.5); Sodium 142 mmol/L (135-145); Total Bilirubin 0.4 mg/dL (0.2-1.2); Total Iron Binding Capacity 336 ug/dL (228-460); Total Protein 7.1 g/dL (6.2-8.2); Uric Acid 6.3 mg/dL (3.7-8.7)
[2021-02-15 17:27] LABS: Ferritin 104.9 ng/mL (22.0-322.0)
[2021-02-15 18:09] LABS: Basophils # (A) 0.02 X 10*3/uL (0.00-0.10); Basophils % (A) 0.3 %; Eosinophils # (A) 0.21 X 10*3/uL (0.04-0.35); Eosinophils % (A) 2.9 %; Lymphocytes # (A) 0.97 X 10*3/uL (0.90-5.00); Lymphocytes % (A) 13.3 %; Monocytes % (A) 8.3 %; Neutrophils # (A) 5.45 X 10*3/uL (1.80-7.70); Neutrophils % (A) 74.9 %
== END | disposition home or self-care (01) ==
LOC: LABWHC1 07:35
PROVIDERS: ATTEND Internal Medicine Cardiovascular Disease
DX: N18.4 Chronic kidney disease, stage 4 (severe) (principal); D64.9 Anemia, unspecified; N25.81 Secondary hyperparathyroidism of renal origin; E61.1 Iron deficiency; E55.9 Vitamin D deficiency, unspecified; M10.9 Gout, unspecified; N39.0 Urinary tract infection, site not specified; R80.9 Proteinuria, unspecified; E78.5 Hyperlipidemia, unspecified; I25.10 Atherosclerotic heart disease of native coronary artery without angina pectoris
CPT/HCPCS: 36415; 80048; 80061; 80076; 81001; 82306; 82570; 82728; 83540; 83550; 83735; 83970; 84100; 84156; 84550; 85025

== ENCOUNTER 2021-02-24 20:29 | Inpatient (IN) | payer MEDICARE ==
[2021-03-01 13:03] VITALS: BMI 20.7
[2021-03-02 04:08] VITALS: RESP 16
[2021-03-02 08:29] VITALS: BP 123/74; PULSE 68; TEMP 98
== END 2021-03-02 10:35 | DRG 281 ==
LOC: EC 20:29 → 6NMEDSUR 22:42 → 3SCARD 02-25 18:24 → OBSVTOIN 02-28 07:52
PROVIDERS: ADMIT Family Medicine; ATTEND Family Medicine
DX: I21.4 Non-ST elevation (NSTEMI) myocardial infarction (principal); I13.0 Hypertensive heart and chronic kidney disease with heart failure and stage 1 through stage 4 chronic kidney disease, or unspecified chronic kidney disease; I50.22 Chronic systolic (congestive) heart failure; N17.9 Acute kidney failure, unspecified; N18.4 Chronic kidney disease, stage 4 (severe); I25.5 Ischemic cardiomyopathy; I27.20 Pulmonary hypertension, unspecified; I08.1 Rheumatic disorders of both mitral and tricuspid valves; E87.6 Hypokalemia; D63.1 Anemia in chronic kidney disease; D69.6 Thrombocytopenia, unspecified; E11.22 Type 2 diabetes mellitus with diabetic chronic kidney disease; E78.5 Hyperlipidemia, unspecified; E86.0 Dehydration; E86.1 Hypovolemia; Z79.02 Long term (current) use of antithrombotics/antiplatelets; Z79.4 Long term (current) use of insulin; Z79.82 Long term (current) use of aspirin; Z79.899 Other long term (current) drug therapy; Z82.49 Family history of ischemic heart disease and other diseases of the circulatory system; Z85.46 Personal history of malignant neoplasm of prostate; Z20.822 Contact with and (suspected) exposure to COVID-19; Z88.2 Allergy status to sulfonamides; Z91.013 Allergy to seafood; Z98.42 Cataract extraction status, left eye; Z98.41 Cataract extraction status, right eye; Z98.890 Other specified postprocedural states
CPT/HCPCS: 36415; 71045; 80048; 80053; 81001; 82728; 83036; 83540; 83550; 83605; 83735; 84484; 85025; 85730; 86140; 87635; 93005; 93306; 94760; 96360; 96361; 99285

== ENCOUNTER 2021-03-12 18:52 | Observation (INO) | payer MEDICARE ==
[2021-03-12] MEDS ORDERED: PANTOPRAZOLE 40 MG/10 ML VIAL IVP STA (19:01)
--- NOTE | 2021-03-12 19:05 | ED ---
General Adult HPI - General Stated complaint: Lower GI problems Time Seen by Provider: 03/12/21 18:55 - History of Present Illness Initial comments: Dictation was produced using [employer] dictation software. please excuse any grammatical, word or spelling errors. Chief Complaint: 75-year-old male sent in from local custodial for black tarry stools, failure to thrive History of Present Illness: Patient is 75-year-old male is currently a resident of one of our local nursing homes. Patient was sent in by EMS for failure to thrive and black tarry stools. Patient has history of dementia, diabetes prostate disorder. Patient states he does have some abdominal pain. Patient is a poor historian. Unable to obtain review of systems secondary to mental status PHYSICAL EXAM: General Impression: Lethargic, pale, dry mucous membranes HEENT: Normocephalic atraumatic, extra-ocular movements intact, pupils equal and reactive to light bilaterally Cardiovascular: Heart regular rate and rhythm Chest: Able to complete full sentences, no retractions, no tachypnea Abdomen: abdomen soft, non-tender, non-distended, no organomegaly Musculoskeletal: Pulses present and equal in all extremities, no peripheral edema Motor: no focal deficits noted Rectal: Melanotic stool with digital rectal exam, no fissures or Neurological: CN II-XII grossly intact, no focal motor or sensory deficits noted Skin: Intact with no visualized rashes Psych: Normal affect and mood ED course: 75-year-old Male presents with a recurrent GI bleed. Transferred neck medications reviewed. It does not appear the patient is prescribed any anticoagulation medications. He is however on antiplatelet medications. Laboratory evaluation obtained. CBC within acceptable limits. Metabolic panel within acceptable limits. Computed tomography scan of the abdomen and pelvis without contrast was obtained showing cardiac regular pleural effusions. This could relate to CHF. Patient has history of heart failure. Patient be admitted for IV hydration. Patient has very tenuous heart function. Patient will need careful hydration. Case was discussed with Dr. Spencer is willing to accept patients care. EKG interpretation: Ventricular rate 73, normal sinus rhythm, ND interval 202, QRS 70, QTc 513. No ND prolongation, , no ST or T-wave changes noted. EKG compared to 02/24/2021 showing no changes. Overall, this EKG is unremarkable - Related Data Home Medications Medication Instructions Recorded Confirmed Aspirin 81 mg PO DAILY@0900 02/24/21 06/26/21 Brimonidine Tartrate [Alphagan P 1 drop BOTH EYES BID@899,209902/24/21 03/12/21 0.2% Ophth Soln] Ferrous Gluconate 324 mg PO BID@899,209902/24/21 03/12/21 Isosorbide Mononitrate ER [Imdur] 15 mg PO DAILY@89902/24/21 03/12/21 Nephrovite 1 cap PO HS@209902/24/21 03/12/21 Timolol 0.5% Ophth Soln [Timoptic 1 drop BOTH EYES BID@899,209902/24/21 03/12/21 0.5% Ophth Soln] allopurinoL [Zyloprim] 100 mg PO HS@209902/24/21 03/12/21 calcitrioL [Rocaltrol] 0.25 mcg PO TUFR 02/24/21 03/12/21 hydrALAZINE HCL [Apresoline] 10 mg PO BID@899,209902/24/21 03/12/21 ALPRAZolam [Xanax] 0.25 mg PO BID PRN 03/12/21 03/12/21 Clopidogrel [Plavix] 75 mg PO DAILY@89903/12/21 03/12/21 INSULIN LISPRO (HumaLOG) [humaLOG] See Protocol SQ ACHS@08,12,,03/12/21 03/12/21 Insulin Glargine,Hum.rec.anlog 15 unit SQ HS@209903/12/21 03/12/21 [Semglee Pen] Lactose-Reduced Food [Ensure Plus] 240 ml PO BID@0900,1700 03/12/21 03/12/21 Nitroglycerin Sl Tabs [Nitrostat] 0.4 mg PO Q5M PRN 03/12/21 03/12/21 Tamsulosin [Flomax] 0.4 mg PO DAILY@89903/12/21 03/12/21 Previous Rx's Medication Instructions Recorded Acetaminophen Tab [Tylenol] 650 mg PO Q6HR PRN tab 02/28/21 Atorvastatin [Lipitor] 80 mg PO HS@2099 tab 02/28/21 carvediloL [Coreg*] 12.5 mg PO BID@30,1800 tab 02/28/21 Allergies Allergy/AdvReac Type Severity Reaction Status Date / Time Fish Containing Products Allergy Swelling Verified 02/24/21 21:43 [Fish] Sulfa (Sulfonamide Allergy Unknown Verified 02/24/21 21:43 Antibiotics) Childhood Review of Systems ROS Statement: Those systems with pertinent positive or pertinent negative responses have been documented in the HPI. ROS Other: All systems not noted in ROS Statement are negative. Past Medical History Past Medical History: Cancer, Diabetes Mellitus, Hyperlipidemia, Hypertension, Prostate Disorder, Renal Disease Additional Past Medical History / Comment(s): Prostate cancer with surgery in 2007, Patient states he has issues with his kidney's and has been seeing doctor Mason since August 2018. History of Any Multi-Drug Resistant Organisms: None Reported Past Surgical History: Orthopedic Surgery, Prostate Surgery Additional Past Surgical History / Comment(s): RIGHT ANKLE 2009, Bilateral Cataract 2016, Colonoscopy August 2018, Prostate surgery 2007 Past Anesthesia/Blood Transfusion Reactions: No Reported Reaction Past Psychological History: No Psychological Hx Reported Smoking Status: Never smoker Past Alcohol Use History: Rare Past Drug Use History: None Reported - Past Family History Mother Family Medical History: No Reported History Additional Family Medical History / Comment(s): CHF Father Family Medical History: No Reported History Additional Family Medical History / Comment(s): Patient states father from a massive heart attack. Course Vital Signs 03/12/21 03/12/21 18:53 19:16 Temperature 98.7 F Pulse Rate 73 73 Respiratory 20 18 Rate Blood Pressure 122/88 137/82 O2 Sat by Pulse 97 96 Oximetry Medical Decision Making - Lab Data Result diagrams: 03/12/21 19:04 03/12/21 19:04 Lab Results 03/12/21 03/12/21 03/12/21 Range/Units 19:04 19:04 19:04 WBC 8.4 (3.8-10.6) k/uL RBC 2.98 L (4.30-5.90) m/uL Hgb 9.6 L (13.0-17.5) gm/dL Hct 31.4 L (39.0-53.0) % MCV 105.6 H (80.0-100.0) fL MCH 32.3 (25.0-35.0) pg MCHC 30.6 L (31.0-37.0) g/dL RDW 16.1 H (11.5-15.5) % Plt Count 110 L (150-450) k/uL MPV 9.5 Neutrophils % 87 % Lymphocytes % 7 % Monocytes % 4 % Eosinophils % 1 % Basophils % 0 % Neutrophils # 7.3 (1.3-7.7) k/uL Lymphocytes # 0.6 L (1.0-4.8) k/uL Monocytes # 0.3 (0-1.0) k/uL Eosinophils # 0.1 (0-0.7) k/uL Basophils # 0.0 (0-0.2) k/uL Hypochromasia Moderate Poikilocytosis Slight Anisocytosis Slight Macrocytosis Moderate PT 12.8 H (9.0-12.0) sec INR 1.2 H (<1.2) APTT 24.0 (22.0-30.0) sec Sodium 143 (137-145) mmol/L Potassium 4.1 (3.5-5.1) mmol/L Chloride 117 H (98-107) mmol/L Carbon Dioxide 19 L (22-30) mmol/L Anion Gap 7 mmol/L BUN 54 H (9-20) mg/dL Creatinine 2.13 H (0.66-1.25) mg/dL Est GFR (CKD-EPI)AfAm 35 (>60 ml/min/1.73 sqM) Est GFR (CKD-EPI)NonAf 30 (>60 ml/min/1.73 sqM) Glucose 148 H (74-99) mg/dL Plasma Lactic Acid Hima (0.7-2.0) mmol/L Calcium 7.9 L (8.4-10.2) mg/dL Magnesium 2.6 H (1.6-2.3) mg/dL Stool Occult Blood (Negative) Coronavirus (PCR) (Not Detectd) Blood Type Blood Type Confirm Blood Type Recheck Bld Type Recheck Status Antibody Screen Spec Expiration Date 03/12/21 03/12/21 03/12/21 Range/Units 19:04 19:04 19:04 WBC (3.8-10.6) k/uL RBC (4.30-5.90) m/uL Hgb (13.0-17.5) gm/dL Hct (39.0-53.0) % MCV (80.0-100.0) fL MCH (25.0-35.0) pg MCHC (31.0-37.0) g/dL RDW (11.5-15.5) % Plt Count (150-450) k/uL MPV Neutrophils % % Lymphocytes % % Monocytes % % Eosinophils % % Basophils % % Neutrophils # (1.3-7.7) k/uL Lymphocytes # (1.0-4.8) k/uL Monocytes # (0-1.0) k/uL Eosinophils # (0-0.7) k/uL Basophils # (0-0.2) k/uL Hypochromasia Poikilocytosis Anisocytosis Macrocytosis PT (9.0-12.0) sec INR (<1.2) APTT (22.0-30.0) sec Sodium (137-145) mmol/L Potassium (3.5-5.1) mmol/L Chloride (98-107) mmol/L Carbon Dioxide (22-30) mmol/L Anion Gap mmol/L BUN (9-20) mg/dL Creatinine (0.66-1.25) mg/dL Est GFR (CKD-EPI)AfAm (>60 ml/min/1.73 sqM) Est GFR (CKD-EPI)NonAf (>60 ml/min/1.73 sqM) Glucose (74-99) mg/dL Plasma Lactic Acid Hima 1.1 (0.7-2.0) mmol/L Calcium (8.4-10.2) mg/dL Magnesium (1.6-2.3) mg/dL Stool Occult Blood Negative (Negative) Coronavirus (PCR) (Not Detectd) Blood Type O Positive Blood Type Confirm Blood Type Recheck No Previous Record Bld Type Recheck Status CABO Indicated Antibody Screen NEGATIVE Spec Expiration Date 03/15/2021230303/12/21 03/12/21 Range/Units 19:20 19:50 WBC (3.8-10.6) k/uL RBC (4.30-5.90) m/uL Hgb (13.0-17.5) gm/dL Hct (39.0-53.0) % MCV (80.0-100.0) fL MCH (25.0-35.0) pg MCHC (31.0-37.0) g/dL RDW (11.5-15.5) % Plt Count (150-450) k/uL MPV Neutrophils % % Lymphocytes % % Monocytes % % Eosinophils % % Basophils % % Neutrophils # (1.3-7.7) k/uL Lymphocytes # (1.0-4.8) k/uL Monocytes # (0-1.0) k/uL Eosinophils # (0-0.7) k/uL Basophils # (0-0.2) k/uL Hypochromasia Poikilocytosis Anisocytosis Macrocytosis PT (9.0-12.0) sec INR (<1.2) APTT (22.0-30.0) sec Sodium (137-145) mmol/L Potassium (3.5-5.1) mmol/L Chloride (98-107) mmol/L Carbon Dioxide (22-30) mmol/L Anion Gap mmol/L BUN (9-20) mg/dL Creatinine (0.66-1.25) mg/dL Est GFR (CKD-EPI)AfAm (>60 ml/min/1.73 sqM) Est GFR (CKD-EPI)NonAf (>60 ml/min/1.73 sqM) Glucose (74-99) mg/dL Plasma Lactic Acid Hima (0.7-2.0) mmol/L Calcium (8.4-10.2) mg/dL Magnesium (1.6-2.3) mg/dL Stool Occult Blood (Negative) Coronavirus (PCR) Not Detected (Not Detectd) Blood Type Blood Type Confirm O Positive Blood Type Recheck Bld Type Recheck Status Antibody Screen Spec Expiration Date Disposition Clinical Impression: Dehydration, Failure to thrive Disposition: ADMITTED IP TO THIS HOSP Condition: Fair
[2021-03-12 19:34] LABS: Anisocytosis Slight; Basophils % (A) 0 %; Eosinophils # (A) 0.1 k/uL (0-0.7); Eosinophils % (A) 1 %; HCT 31.4 % (39.0-53.0); HGB 9.6 gm/dL (13.0-17.5); Hypochromasia Moderate; Lymphocytes # (A) 0.6 k/uL (1.0-4.8); Lymphocytes % (A) 7 %; MCH 32.3 pg (25.0-35.0); MCHC 30.6 g/dL (31.0-37.0); MCV 105.6 fL (80.0-100.0); Macrocytosis Moderate; Mean Platelet Volume 9.5; Monocytes # (A) 0.3 k/uL (0-1.0); Monocytes % (A) 4 %; Neutrophils # (A) 7.3 k/uL (1.3-7.7); Neutrophils % (A) 87 %; Platelet Count 110 k/uL (150-450); Poikilocytosis Slight; RBC 2.98 m/uL (4.30-5.90); RDW 16.1 % (11.5-15.5); WBC 8.4 k/uL (3.8-10.6)
[2021-03-12 19:50] LABS: INR 1.2 (<1.2); Prothrombin Time 12.8 sec (9.0-12.0)
--- NOTE | 2021-03-12 20:06 | CT ---
EXAMINATION TYPE: CT abdomen pelvis wo con DATE OF EXAM: 03/12/2021 COMPARISON: None HISTORY: GI issues CT DLP: 567.1 mGycm Automated exposure control for dose reduction was used. There are moderate bilateral pleural effusions. Heart is enlarged. There is no pericardial effusion. There is bilateral lower lobe pulmonary infiltrates and atelectasis. Liver and spleen appear intact. The bile ducts are not dilated. There are calcified splenic granuloma ta. Stomach is intact. There is no evidence of pancreatic mass. Kidneys have normal size. There is no hydronephrosis. There is no adrenal mass. Ureters are not dilat ed. Abdominal aorta is atheromatous. There is no retroperitoneal adenopathy. Bladder distends smoothl y. There are surgical clips in the pelvis. There is no inguinal hernia. There is some mild mesenteric fat stranding and fluid noted in the lower abdomen and right paracolic gutter. Exam limited by motion. There is mild abdominal ascites. There are numerous sigmoid diverticu la. I see no diverticulitis. There is no evidence of free air. The lumbar vertebra have normal alignment. There is no compression fracture. Posterior elements are i ntact. The bony pelvis is intact. The hip joints are intact. There is no hip dysplasia. There is smal l amount of air apparently in the right femoral vein that could be from catheterization. There is tessa e subcutaneous edema around the abdomen. IMPRESSION: Cardiomegaly with pleural effusions and basilar infiltrates and atelectasis. This could relate to con gestive heart failure. Mild abdominal ascites fluid also could be secondary to heart failure. Sigmoid diverticulosis without diverticulitis. No bowel obstruction. No free air.
[2021-03-12] MEDS ORDERED: NALOXONE 0.4 MG/ML 1 ML VIAL IV PRN (20:32)
[2021-03-12] MEDS ORDERED: SODIUM CHLORIDE 0.9% 1,000 ML IV STA (20:37)
[2021-03-12 20:39] LABS: Calcium 7.9 mg/dL (8.4-10.2); Magnesium 2.6 mg/dL (1.6-2.3); Potassium 4.1 mmol/L (3.5-5.1)
[2021-03-12] MEDS ORDERED: NITROGLYCERIN SL TABS 0.4 MG TAB SUBLINGUAL PRN (23:34)
[2021-03-13 04:01] LABS: HCT 27.7 % (39.0-53.0); Hypochromasia Moderate; MCH 33.7 pg (25.0-35.0); MCHC 32.6 g/dL (31.0-37.0); MCV 103.4 fL (80.0-100.0); Macrocytosis Moderate; Poikilocytosis Slight; RBC 2.67 m/uL (4.30-5.90); RDW 15.8 % (11.5-15.5); WBC 6.8 k/uL (3.8-10.6)
[2021-03-13 04:11] LABS: Albumin 2.5 g/dL (3.5-5.0); Calcium 7.7 mg/dL (8.4-10.2); Total Bilirubin 0.6 mg/dL (0.2-1.3); Total Protein 5.2 g/dL (6.3-8.2)
[2021-03-13 05:22] LABS: Platelet Count 89 k/uL (150-450)
[2021-03-13] MEDS: carvediloL 12.5 MG TAB PO SCH ×2 (06:14→17:51)
[2021-03-13 08:02] LABS: Glucose,Whole Blood 138 mg/dL (75-99)
[2021-03-13] MEDS ORDERED: ACETAMINOPHEN TAB 325 MG TAB PO PRN (09:00)
[2021-03-13] MEDS ORDERED: NON FORMULARY DRUG (Ferrous Gluconate [Ferrous Gluconate] 324 MG Tablet) PO SCH (09:00)
[2021-03-13] MEDS ORDERED: NON FORMULARY DRUG (Lactose-Reduced Food [Ensure Plus] 237 ML Liquid) PO SCH (09:00)
[2021-03-13] MEDS: INSULIN ASPART (NovoLOG) 100 UNIT/ML VIAL SQ SCH ×4 (09:54→20:38)
[2021-03-13] MEDS: ISOSORBIDE MONONITRATE ER 30 MG TAB.ER.24H PO SCH (09:57)
[2021-03-13] MEDS: TIMOLOL 0.5% OPHTH DROPS 5 ML BTL BOTH EYES SCH ×2 (09:58→20:16)
[2021-03-13] MEDS: ASPIRIN 81 MG PO SCH (09:58)
[2021-03-13] MEDS: hydrALAZINE HCL 10 MG TAB PO SCH ×2 (09:58→20:15)
[2021-03-13] MEDS: CLOPIDOGREL 75 MG TAB PO SCH (09:58)
[2021-03-13] MEDS: TAMSULOSIN 0.4 MG CAP.ER.24H PO SCH (09:58)
--- NOTE | 2021-03-13 11:26 | P.HPIM ---
History of Present Illness H&P Date: 03/13/21 Chief Complaint: Acute on chronic kidney disease stage IV/elevated troponin. HISTORY OF PRESENT ILLNESS: This is a 75-year-old male one of Dr. Swartz with a previous medical history significant for hypertension and hypertensive cardio vascular disease with left ventricular hypertrophy, history of ischemic cardiomyopathy ejection fraction of 20%, non-ST elevation myocardial infarction, moderate mitral regurgitation tricuspid regurgitation with severe pulmonary hypertension, diabetes mellitus type 2, chronic kidney disease stage IV, anemia, history of thrombocytopenia, patient was recently hospitalized at [facility] between February 25 and 02/28/2021 after he was admitted for non-ST elevation IA as well as acute systolic heart failure and the patient was elected to treat medically at that time, patient went to [facility] [place] he has been under my care, yesterday the nurse practitioner Carol was seen the patient and he was spitting his food is not eating or drinking he appeared graft, and his laboratory evaluation continue to be abnormal, he was recommended for the patient be transferred to the emergency department at [facility] was found to have elevated troponin due to his non-ST elevation myocardial infarction, he was admitted to the [facility] with c cardiologyonsultation and for further evaluation and treatment. REVIEW OF SYSTEMS: Constitutional: No documented fever, no chills, no night sweats. minimal weight change. positive for weakness, fatigue or lethargy. No daytime sleepiness. HEENT: No headache. No blurred vision or double vision, no loss of vision. No loss of Hearing, no ringing in the ears, no dizziness. No nasal drainage or congestion. No epistaxis. No sore throat. Lungs: positive for shortness of breath, no cough, no sputum production. No wheezing. Reports dyspnea with activity. Cardiovascular: No chest pain, no lower extremity edema. No palpitations. No paroxysmal nocturnal dyspnea. No orthopnea. No lightheadedness or dizziness. No syncopal episodes. Abdominal: Reports abdominal pain. No nausea, vomiting. No diarrhea. No constipation. No bloody or tarry stools reports loss of appetite. Genitourinary: No dysuria, increased frequency, urgency. No urinary retention. Musculoskeletal: No myalgias. positive for muscle weakness, no gait dysfunction, no frequent falls. No back pain. No neck pain. Integumentary: No wounds, no lesions. No rash or pruritus. No unusual bruising. No change in hair or nails. Neurologic: No aphasia. No facial droop. No change in mentation. No head injury. No headache. No paralysis. No paresthesia. Psychiatric: appears anxious with lapses in memory, not eating or drinking, spitting his food. Endocrine: No abnormal blood sugars. No weight change. PAST MEDICAL HISTORY: coronary artery disease with ischemic cardiomyopathy ejection fraction 20% Hypertension and hypertensive cardiovascular disease. Hyperlipidemia. Diabetes mellitus type 2. Chronic kidney disease stage IV. Anemia of chronic kidney disease. Thrombocytopenia. Moderate mitral regurgitation. severe tricuspid regurgitation. severe pulmonary hypertension. Memory loss. Prostate cancer. PAST SURGICAL HISTORY: Prostate surgery 2007 Right ankle surgery 2010 Bilateral cataract surgery. Colonoscopy. SOCIAL HISTORY: Patient is a lifelong nonsmoker, he denies any congestion, no drainage abuse, currently resides at [facility]. FAMILY HISTORY: Mother from congestive heart failure at the age of 76, father from massive IA at the age 58, patient has 2 brothers one vessel that is receptive the other one is okay, patient has cirrhosis of, has no kids, he lives with his who has 2 daughters and a son. PHYSICAL EXAMINATION: General: 75-year-old male who is laying down but does appear to be minimal distress. HEENT: Head is atraumatic, normocephalic, pupils were equal round reactive to light and recommendation, extraocular muscle movement were intact, sclera nonicteric, conjunctivae were pale, mucous membranes of the mouth are somewhat dry. Neck: Supple, no JVP, normal carotid upstroke bilaterally, no lymphadenopathy. Chest: Decreased breath sounds at the bases, few rhonchi, no expiratory wheezes, no chest wall tenderness, no intercostal retractions. Heart: First heart sound is normal, second heart sounds normal. There is systolic ejection murmur 2/6 occasional left sternal border. Abdomen: Soft, nontender, nondistended, positive bowel sounds. Extremities: There is no edema no calf tenderness DP +2 bilaterally. Neurologic examination: Patient is awake alert and oriented X2, cranial nerves II-12 appear grossly intact, muscle power were 5 out of 5 in upper extremities and 5 out of 5 in bilateral lower extremities, deep tendon reflexes normal bilaterally. ASSESSMENT AND PLAN: 1. Elevated troponin likely related to acute on top of chronic kidney disease with a prior history of non-ST elevation IA. His troponin were slightly higher last time. Maintain the patient on aspirin 81 mg once every day, Plavix 75 mg once every day, carvedilol 12.5 mg orally twice every day, atorvastatin 80 mg orally once every day, continue with hydralazine 10 mg orally twice every day and isosorbide mononitrate 15 mg orally once every day, cardiology consultation. 2. Acute on chronic kidney disease stage IV. Continue patient on Rocaltrol 0.25 mg orally twice every week. 3. Anemia with macrocytosis along with thrombus cytopenia. Check B12, check LDH, check reticulocyte count, check light chain protein in the form of [place], Lambda, we may need to obtain hematology consultation. 4. Coronary artery disease with ischemic cardiomyopathy ejection fraction 20% on recent echocardiogram was done about a week ago, continue patient on carvedilol 12.5 mg orally twice every day, hydralazine 10 mg orally twice every day, aspirin 81 g once every day, Plavix 75 mg once every day, isosorbide mononitrate 15 mg orally once every day 5. Acute on Chronic systolic heart failure. Continue with the above treatment plan, hepatitis C start the patient on Lasix 40 mg IV push daily. 6. Hypertension and hypertensive cardiovascular disease. Continue carvedilol 12.5 mg orally twice every day, continue hydralazine 10 mg orally twice every day. 7. Secondary hyperparathyroidism. Continue Rocaltrol 0.25 mg orally twice a week. 8. Prostate cancer status post prostatectomy. Continue Flomax 0.4 g once every day. 9. Memory loss. Patient will need to have a Mini-Mental status examination as an outpatient. 10. Glaucoma. Continue current eyedrops. 11. DVT prophylaxis. Continue patient on Heparin 5000 units subcutaneously every 12 hours. 12. GI prophylaxis. Continue patient on Pepcid 20 mg orally once every day. 13. Admit to inpatient. Estimate a length of stay 2 midnights. 14. Patient is full code. Past Medical History Past Medical History: Cancer, Diabetes Mellitus, Hyperlipidemia, Hypertension, Prostate Disorder, Renal Disease Additional Past Medical History / Comment(s): Prostate cancer with surgery in 2007, Patient states he has issues with his kidney's and has been seeing doctor Mason since August 2018. History of Any Multi-Drug Resistant Organisms: None Reported Past Surgical History: Orthopedic Surgery, Prostate Surgery Additional Past Surgical History / Comment(s): RIGHT ANKLE 2009, Bilateral Cataract 2016, Colonoscopy August 2018, Prostate surgery 2007 Past Anesthesia/Blood Transfusion Reactions: No Reported Reaction Past Psychological History: No Psychological Hx Reported Smoking Status: Never smoker Past Alcohol Use History: Rare Past Drug Use History: None Reported - Past Family History Mother Family Medical History: No Reported History Additional Family Medical History / Comment(s): CHF Father Family Medical History: No Reported History Additional Family Medical History / Comment(s): Patient states father from a massive heart attack. Medications and Allergies Home Medications Medication Instructions Recorded Confirmed Type Aspirin 81 mg PO DAILY@89902/24/21 03/12/21 History Brimonidine Tartrate [Alphagan P 1 drop BOTH EYES BID@899,209902/24/21 03/12/21 History 0.2% Ophth Soln] Ferrous Gluconate 324 mg PO BID@09,209902/24/21 03/12/21 History Isosorbide Mononitrate ER [Imdur] 15 mg PO DAILY@89902/24/21 03/12/21 History Nephrovite 1 cap PO HS@209902/24/21 03/12/21 History Timolol 0.5% Ophth Soln [Timoptic 1 drop BOTH EYES BID@899,209902/24/21 03/12/21 History 0.5% Ophth Soln] allopurinoL [Zyloprim] 100 mg PO HS@209902/24/21 03/12/21 History calcitrioL [Rocaltrol] 0.25 mcg PO TUFR 02/24/21 03/12/21 History hydrALAZINE HCL [Apresoline] 10 mg PO BID@0900,209902/24/21 03/12/21 History Acetaminophen Tab [Tylenol] 650 mg PO Q6HR PRN tab 02/28/21 03/12/21 Rx Atorvastatin [Lipitor] 80 mg PO HS@2099 tab 02/28/21 03/12/21 Rx carvediloL [Coreg*] 12.5 mg PO BID@0630,1800 tab 02/28/21 03/12/21 Rx ALPRAZolam [Xanax] 0.25 mg PO BID PRN 03/12/21 03/12/21 History Clopidogrel [Plavix] 75 mg PO DAILY@0900 03/12/21 03/12/21 History INSULIN LISPRO (HumaLOG) [humaLOG] See Protocol SQ ACHS@08,12,17,21 03/12/21 03/12/21 History Insulin Glargine,Hum.rec.anlog 15 unit SQ HS@2100 03/12/21 03/12/21 History [Semglee Pen] Lactose-Reduced Food [Ensure Plus] 240 ml PO BID@0900,1700 03/12/21 03/12/21 History Nitroglycerin Sl Tabs [Nitrostat] 0.4 mg PO Q5M PRN 03/12/21 03/12/21 History Tamsulosin [Flomax] 0.4 mg PO DAILY@0900 03/12/21 03/12/21 History Allergies Allergy/AdvReac Type Severity Reaction Status Date / Time Fish Containing Products Allergy Swelling Verified 02/24/21 21:43 [Fish] Sulfa (Sulfonamide Allergy Unknown Verified 02/24/21 21:43 Antibiotics) Childhood Physical Exam Vitals: Vital Signs Temp Pulse Pulse Resp BP BP BP 03/13/21 08:00 96.3 F L 67 20 137/80 03/13/21 04:00 97.6 F 69 17 154/87 03/13/21 01:26 69 19 03/13/21 00:00 97.9 F 69 19 145/80 03/12/21 21:20 97.7 F 73 17 144/87 03/12/21 20:54 98 18 139/80 03/12/21 20:43 69 19 145/80 03/12/21 19:16 73 18 137/82 03/12/21 18:53 98.7 F 73 20 122/88 Pulse Ox 03/13/21 08:00 97 03/13/21 04:00 98 03/13/21 01:26 03/13/21 00:00 100 03/12/21 21:20 100 03/12/21 20:54 98 03/12/21 20:43 100 03/12/21 19:16 96 03/12/21 18:53 97 Intake and Output 03/12/21 03/13/21 03/13/21 22:59 06:59 14:59 Intake Total 490 Balance 490 Intake: Intake, IV Titration 490 Amount Sodium Chloride 0.9% 1, 490 000 ml @ 70 mls/hr IV . [id number] STA Rx#:[id number] Other: Voiding Method Diaper Diaper Incontinent # Voids 2 # Bowel Movements 1 Weight 64.5 kg 64 kg Results CBC & Chem 7: 03/13/21 02:45 03/13/21 02:45 Labs: Abnormal Lab Results - Last 24 Hours (Table) 03/12/21 03/12/21 03/12/21 Range/Units 19:04 19:04 19:04 RBC 2.98 L (4.30-5.90) m/uL Hgb 9.6 L (13.0-17.5) gm/dL Hct 31.4 L (39.0-53.0) % MCV 105.6 H (80.0-100.0) fL MCHC 30.6 L (31.0-37.0) g/dL RDW 16.1 H (11.5-15.5) % Plt Count 110 L (150-450) k/uL Lymphocytes # 0.6 L (1.0-4.8) k/uL PT 12.8 H (9.0-12.0) sec INR 1.2 H (<1.2) Chloride 117 H (98-107) mmol/L Carbon Dioxide 19 L (22-30) mmol/L BUN 54 H (9-20) mg/dL Creatinine 2.13 H (0.66-1.25) mg/dL Glucose 148 H (74-99) mg/dL POC Glucose (mg/dL) (75-99) mg/dL Calcium 7.9 L (8.4-10.2) mg/dL Magnesium 2.6 H (1.6-2.3) mg/dL ALT (4-49) U/L Alkaline Phosphatase (38-126) U/L Troponin I (0.000-0.034) ng/mL Total Protein (6.3-8.2) g/dL Albumin (3.5-5.0) g/dL 03/12/21 03/12/21 03/13/21 Range/Units 19:04 23:46 02:45 RBC (4.30-5.90) m/uL Hgb (13.0-17.5) gm/dL Hct (39.0-53.0) % MCV (80.0-100.0) fL MCHC (31.0-37.0) g/dL RDW (11.5-15.5) % Plt Count (150-450) k/uL Lymphocytes # (1.0-4.8) k/uL PT (9.0-12.0) sec INR (<1.2) Chloride (98-107) mmol/L Carbon Dioxide (22-30) mmol/L BUN (9-20) mg/dL Creatinine (0.66-1.25) mg/dL Glucose (74-99) mg/dL POC Glucose (mg/dL) (75-99) mg/dL Calcium (8.4-10.2) mg/dL Magnesium (1.6-2.3) mg/dL ALT (4-49) U/L Alkaline Phosphatase (38-126) U/L Troponin I 0.131 H* 0.128 H* 0.114 H* (0.000-0.034) ng/mL Total Protein (6.3-8.2) g/dL Albumin (3.5-5.0) g/dL 03/13/21 03/13/21 03/13/21 Range/Units 02:45 02:45 08:01 RBC 2.67 L (4.30-5.90) m/uL Hgb 9.0 L (13.0-17.5) gm/dL Hct 27.7 L (39.0-53.0) % MCV 103.4 H (80.0-100.0) fL MCHC (31.0-37.0) g/dL RDW 15.8 H (11.5-15.5) % Plt Count 89 L (150-450) k/uL Lymphocytes # (1.0-4.8) k/uL PT (9.0-12.0) sec INR (<1.2) Chloride 117 H (98-107) mmol/L Carbon Dioxide 19 L (22-30) mmol/L BUN 48 H (9-20) mg/dL Creatinine 2.12 H (0.66-1.25) mg/dL Glucose 127 H (74-99) mg/dL POC Glucose (mg/dL) 138 H (75-99) mg/dL Calcium 7.7 L (8.4-10.2) mg/dL Magnesium (1.6-2.3) mg/dL ALT 61 H (4-49) U/L Alkaline Phosphatase 130 H (38-126) U/L Troponin I (0.000-0.034) ng/mL Total Protein 5.2 L (6.3-8.2) g/dL Albumin 2.5 L (3.5-5.0) g/dL Thrombosis Risk Factor Assmnt - Choose All That Apply Other Risk Factors: Yes Each Risk Factor Represents 2 Points: Age 61-74 years Other congenital or acquired thrombophilia - If yes, enter type in comment: No Thrombosis Risk Factor Assessment Total Risk Factor Score: 2 Thrombosis Risk Factor Assessment Level: Low Risk
[2021-03-13 11:31] LABS: LDH 686 U/L (313-618)
--- NOTE | 2021-03-13 11:44 | CONS ---
CONSULTATION This is a gentleman who was transferred from a local long-term with some black tarry stools and inability to eat. He also has history of dementia, diabetes, and recently he was discharged from the hospital and he was found to have elevated troponin with ejection fraction of less than 20% and Dr. Hill saw the patient and after due discussion, he was advised conservative management. However, patient has been transferred here from the long-term and I was asked to see him because of the elevated troponin. On reviewing the data, it appears that the troponin numbers do not suggest any new myocardial injury. Initial troponin was 0.1 and it has remained about the same. During the last visit, troponin was up to 5.2. He has also elevated BUN and creatinine, is lethargic, does not communicate and does not give much history. The patient's troponin elevation does not represent new myocardial injury. Please refer to detailed notes dictated by previous consultants. PAST MEDICAL HISTORY: Remarkable for diabetes, hypertension, hyperlipidemia, history of some prostate cancer as well. MEDICATIONS: Medications at home include Lipitor, carvedilol, hydralazine, Plavix, aspirin, insulin, and Flomax. EKG revealed sinus mechanism with minor nonspecific ST changes. PHYSICAL EXAMINATION: On examination, blood pressure is 130/70, pulse rate is 70 per minute. HEENT unremarkable. Fundus was not examined by me. Neck is supple. There is no JVD. I do not hear a carotid bruit. HEART exam reveals S1, S2 with a short systolic murmur. LUNGS reveal diminished air entry. ABDOMEN is soft. Lower extremities reveal diminished pulses. Central nervous system: A detailed exam was not performed. IMPRESSION: 1. Malnutrition with dementia. 2. History of recent echo which revealed ejection fraction of less than 20% with elevated troponin. 3. Current troponin levels do not represent a myocardial injury. RECOMMENDATIONS: No aggressive intervention from a cardiac standpoint. Supportive care and patient can be transported back to his facility. No intervention necessary from a cardiac standpoint. We will see him as needed. MMODL / IJN: [id number] /
[2021-03-13 11:48] LABS: Reticulocyte % 5.2 % (0.5-2.0)
[2021-03-13 12:15] LABS: Glucose,Whole Blood 124 mg/dL (75-99)
[2021-03-13] MEDS: FUROSEMIDE 10 MG/ML 4 ML VIAL IV SCH (12:53)
[2021-03-13] MEDS: BRIMONIDINE TARTRATE 0.2% DROPS 5 ML BTL BOTH EYES SCH ×2 (12:54→20:16)
[2021-03-13 16:48] LABS: Glucose,Whole Blood 140 mg/dL (75-99)
[2021-03-13 17:16] LABS: % Iron Saturation 10.66 (15.00-50.00); Folate, Serum >24.0 ng/mL; Iron 21 ug/dL (65-175); Total Iron Binding Capacity 197 ug/dL (228-460)
[2021-03-13] MEDS: HEPARIN SODIUM,PORCINE/PF 5,000 UNIT/0.5 ML SYRINGE SQ SCH (20:15)
[2021-03-13] MEDS: allopurinoL 100 MG TAB PO SCH (20:15)
[2021-03-13] MEDS: ATORVASTATIN 80 MG TAB PO SCH (20:15)
[2021-03-13] MEDS: FOLIC ACID-VIT B COMPLEX-VIT C 1 CAP PO SCH (20:15)
[2021-03-13 20:29] LABS: Glucose,Whole Blood 257 mg/dL (75-99)
[2021-03-13] MEDS: INSULIN DETEMIR (LEVEMIR) 100 UNIT/ML SYR SQ SCH (20:38)
[2021-03-14] MEDS: carvediloL 12.5 MG TAB PO SCH ×2 (05:26→17:26)
--- NOTE | 2021-03-14 07:44 | XR ---
EXAMINATION TYPE: XR chest 1V DATE OF EXAM: 03/14/2021 COMPARISON: 02/25/2021 HISTORY: Congestive heart failure TECHNIQUE: Single frontal view of the chest is obtained. FINDINGS: Low lung volumes. Mild cardiomegaly. Multiple overlying leads. Small left pleural effusion . Tiny right pleural effusion. Bibasilar airspace opacities suggestive of atelectasis or developing p neumonitis. Crowding of the central pulmonary interstitium. No pneumothorax. IMPRESSION: 1. Mild cardiomegaly. Small left and tiny right pleural effusions. Crowding the central pulmonary int erstitium. Findings may represent early congestive heart failure.
[2021-03-14 07:55] LABS: Albumin 2.7 g/dL (3.5-5.0); Calcium 8.1 mg/dL (8.4-10.2); Potassium 3.5 mmol/L (3.5-5.1); Total Bilirubin 0.5 mg/dL (0.2-1.3); Total Protein 5.6 g/dL (6.3-8.2)
[2021-03-14 08:06] LABS: Glucose,Whole Blood 61 mg/dL (75-99)
[2021-03-14] MEDS: INSULIN ASPART (NovoLOG) 100 UNIT/ML VIAL SQ SCH ×4 (08:16→21:12)
[2021-03-14 08:20] LABS: Glucose,Whole Blood 75 mg/dL (75-99)
[2021-03-14 08:36] LABS: Basophils % (A) 0 %; Eosinophils # (A) 0.1 k/uL (0-0.7); Eosinophils % (A) 1 %; HCT 30.8 % (39.0-53.0); HGB 9.5 gm/dL (13.0-17.5); Hypochromasia Moderate; Lymphocytes # (A) 0.9 k/uL (1.0-4.8); Lymphocytes % (A) 12 %; MCH 32.4 pg (25.0-35.0); MCHC 30.8 g/dL (31.0-37.0); Macrocytosis Moderate; Mean Platelet Volume 10.1; Monocytes # (A) 0.5 k/uL (0-1.0); Monocytes % (A) 7 %; Neutrophils # (A) 5.5 k/uL (1.3-7.7); Neutrophils % (A) 78 %; Platelet Count 102 k/uL (150-450); Poikilocytosis Slight; RBC 2.93 m/uL (4.30-5.90); WBC 7.1 k/uL (3.8-10.6)
[2021-03-14 09:51] LABS: Free Kappa Lt Chain Qnt, Serum 11.5 mg/dL (0.33-1.94)
[2021-03-14] MEDS: HEPARIN SODIUM,PORCINE/PF 5,000 UNIT/0.5 ML SYRINGE SQ SCH ×2 (10:39→22:03)
[2021-03-14] MEDS: FUROSEMIDE 10 MG/ML 4 ML VIAL IV SCH (10:39)
[2021-03-14] MEDS: BRIMONIDINE TARTRATE 0.2% DROPS 5 ML BTL BOTH EYES SCH ×2 (10:40→22:04)
[2021-03-14] MEDS: TIMOLOL 0.5% OPHTH DROPS 5 ML BTL BOTH EYES SCH ×2 (10:40→22:03)
[2021-03-14] MEDS: ASPIRIN 81 MG PO SCH (11:19)
[2021-03-14] MEDS: FAMOTIDINE 20 MG TAB PO SCH (11:19)
[2021-03-14] MEDS: CLOPIDOGREL 75 MG TAB PO SCH (11:19)
[2021-03-14] MEDS: hydrALAZINE HCL 10 MG TAB PO SCH ×2 (11:19→22:03)
[2021-03-14] MEDS: ISOSORBIDE MONONITRATE ER 30 MG TAB.ER.24H PO SCH (11:19)
[2021-03-14] MEDS: TAMSULOSIN 0.4 MG CAP.ER.24H PO SCH (11:20)
[2021-03-14 11:47] LABS: Glucose,Whole Blood 108 mg/dL (75-99)
[2021-03-14 12:14] LABS: Glucose,Whole Blood 93 mg/dL (75-99)
[2021-03-14 15:16] VITALS: BMI 22.4
[2021-03-14] MEDS ORDERED: POTASSIUM CHLORIDE ER 20 MEQ TAB.ER PO STA (16:37)
--- NOTE | 2021-03-14 16:54 | P.PN ---
Subjective Progress Note Date: 03/14/21 This is a 75-year-old male one of Dr. Swartz with a previous medical history significant for hypertension and hypertensive cardiovascular disease with left ventricular hypertrophy, history of ischemic cardiomyopathy ejection fraction of 20%, non-ST elevation myocardial infarction, moderate mitral regurgitation tricuspid regurgitation with severe pulmonary hypertension, diabetes mellitus type 2, chronic kidney disease stage IV, anemia, history of thrombocytopenia, recently hospitalized at [facility] with non-ST elevation ID as well as acute systolic heart failure. Patient elected conservative management,discharged on 03/02/2021 and proceeded to [facility] on the [place]. Return to [facility] to poor oral intake, black tarry stools, abdominal pain, abnormal labs. CT of abdomen and pelvis report pleural effusions, basilar infiltrates, acute CHF exacerbation, mild abdominal ascites. 03/06/2021 F/U chest x-ray suggesting acute early CHF. diuresing well on Lasix IV push. Creatinine up to 2.32 diet intake poor, consumed 0% of breakfast, 0% of lunch. Platelets trending down and currently 89, hematology followed on last admit and had discussed outpatient bone marrow biopsy, which is still pending. Maintaining O2 sats in the 90s on room air. Objective - Vital Signs Vital signs: Vital Signs Temp 97.6 F 03/14/21 14:00 Pulse 67 03/14/21 14:00 Resp 17 03/14/21 14:00 BP 129/79 03/14/21 14:00 Pulse Ox 99 03/14/21 14:00 Intake & Output 03/13/21 03/14/21 03/14/21 18:59 06:59 18:59 Intake Total 10 120 120 Balance 10 120 120 Weight 63 kg 63 kg Intake: Oral 10 120 120 Other: Voiding Method Diaper Diaper Diaper # Voids 4 3 # Bowel Movements 2 - Exam PHYSICAL EXAM: VITAL SIGNS: As above GENERAL: Sitting up in bed, sleepy, no acute distress, did not touch his breakfast tray HEENT: Conjunctivae normal. eyes normal. Oral mucosa dry NECK: Supple, No JVD. CARDIOVASCULAR: S1, S2 regular. Systolic murmur RESPIRATION: Breath sounds diminished in the bases. No rhonchi or crackles. ABDOMEN: Soft, nondistended, nontender . No guarding. no masses palpable. No ascites, No hepatosplenomegaly.Bowel sounds heard. LEGS: No edema. no swelling. No calf tenderness. PSYCHIATRY: Alert and oriented X2, mood and affect normal. NERVOUS SYSTEM: Cranial N 2-12 grossly normal. Moves all 4 limbs. Diffuse weakness, No focal deficits. Strength and sensation grossly intact.. Skin: Warm and dry, no rash - Labs CBC & Chem 7: 03/14/21 07:14 03/14/21 07:14 Labs: Abnormal Lab Results - Last 24 Hours (Table) 03/13/21 03/13/21 03/13/21 Range/Units 02:45 02:45 16:47 RBC (4.30-5.90) m/uL Hgb (13.0-17.5) gm/dL Hct (39.0-53.0) % MCV (80.0-100.0) fL MCHC (31.0-37.0) g/dL RDW (11.5-15.5) % Plt Count (150-450) k/uL Lymphocytes # (1.0-4.8) k/uL Haptoglobin 245.0 H (31.2-198.0) mg/dL Sodium (137-145) mmol/L Chloride (98-107) mmol/L BUN (9-20) mg/dL Creatinine (0.66-1.25) mg/dL Glucose (74-99) mg/dL POC Glucose (mg/dL) 140 H (75-99) mg/dL Calcium (8.4-10.2) mg/dL Iron 21 L (65-175) ug/dL TIBC 197 L (228-460) ug/dL % Saturation 10.66 L (15.00-50.00) ALT (4-49) U/L Alkaline Phosphatase (38-126) U/L Total Protein (6.3-8.2) g/dL Albumin (3.5-5.0) g/dL Vitamin B12 1228.0 H (200.0-944.0) pg/mL Free [place] LC, Quant 11.50 H (0.33-1.94) mg/dL Free Lambda LC, Quant 5.14 H (0.57-2.63) mg/dL 03/13/21 03/14/21 03/14/21 Range/Units 20:28 07:14 07:14 RBC 2.93 L (4.30-5.90) m/uL Hgb 9.5 L (13.0-17.5) gm/dL Hct 30.8 L (39.0-53.0) % MCV 105.0 H (80.0-100.0) fL MCHC 30.8 L (31.0-37.0) g/dL RDW 16.0 H (11.5-15.5) % Plt Count 102 L (150-450) k/uL Lymphocytes # 0.9 L (1.0-4.8) k/uL Haptoglobin (31.2-198.0) mg/dL Sodium 147 H (137-145) mmol/L Chloride 116 H (98-107) mmol/L BUN 55 H (9-20) mg/dL Creatinine 2.32 H (0.66-1.25) mg/dL Glucose 69 L (74-99) mg/dL POC Glucose (mg/dL) 257 H (75-99) mg/dL Calcium 8.1 L (8.4-10.2) mg/dL Iron (65-175) ug/dL TIBC (228-460) ug/dL % Saturation (15.00-50.00) ALT 53 H (4-49) U/L Alkaline Phosphatase 128 H (38-126) U/L Total Protein 5.6 L (6.3-8.2) g/dL Albumin 2.7 L (3.5-5.0) g/dL Vitamin B12 (200.0-944.0) pg/mL Free [place] LC, Quant (0.33-1.94) mg/dL Free Lambda LC, Quant (0.57-2.63) mg/dL 03/14/21 03/14/21 Range/Units 08:04 11:45 RBC (4.30-5.90) m/uL Hgb (13.0-17.5) gm/dL Hct (39.0-53.0) % MCV (80.0-100.0) fL MCHC (31.0-37.0) g/dL RDW (11.5-15.5) % Plt Count (150-450) k/uL Lymphocytes # (1.0-4.8) k/uL Haptoglobin (31.2-198.0) mg/dL Sodium (137-145) mmol/L Chloride (98-107) mmol/L BUN (9-20) mg/dL Creatinine (0.66-1.25) mg/dL Glucose (74-99) mg/dL POC Glucose (mg/dL) 61 L 108 H (75-99) mg/dL Calcium (8.4-10.2) mg/dL Iron (65-175) ug/dL TIBC (228-460) ug/dL % Saturation (15.00-50.00) ALT (4-49) U/L Alkaline Phosphatase (38-126) U/L Total Protein (6.3-8.2) g/dL Albumin (3.5-5.0) g/dL Vitamin B12 (200.0-944.0) pg/mL Free [place] LC, Quant (0.33-1.94) mg/dL Free Lambda LC, Quant (0.57-2.63) mg/dL Assessment and Plan Assessment: Recent NSTEMI, conservative management Elevated troponins,decreased from prior admission,related to the above and acute renal failure Acute on Chronic systolic CHF Severe protein calorie malnutrition, BMI 22.4 Failure to thrive, multifactorial, including the above and #1 Acute dehydration Acute on Chronic renal failure IV, acute related to poor oral intake, cardiorenal syndrome Hypokalemia secondary to poor intake and diuretics Anemia of chronic kidney disease Thrombocytopenia, evaluated by oncology/hematology last visit, bone marrow biopsy pending Diabetes mellitus Ischemic cardiomyopathy, EF less than 20% Moderate pulmonary hypertension Multivalvular disease Plan: Continue on current medication regime ,monitoring and symptomatic treatment. Continue diuresing on IV push Lasix. Strict monitoring of I&O's. Close monitoring of electrolytes, renal function,HGb/plts with repeat labs ordered for a.m. encourage oral intake.We will discuss palliative care option w ith family as patient's intake remains poor .Maintain supportive care. Prognosis guarded given multiple complex medical issues. The impression and plan of care has been dictated as directed. : I performed a history and examination of this patient, discussed the same with the dictator. I agree with the dictator's note ,documented as a scribe. Any additional findings or plans will be noted.
[2021-03-14 16:55] LABS: Glucose,Whole Blood 111 mg/dL (75-99)
[2021-03-14 20:21] LABS: Glucose,Whole Blood 119 mg/dL (75-99)
[2021-03-14] MEDS: INSULIN DETEMIR (LEVEMIR) 100 UNIT/ML SYR SQ SCH (21:12)
[2021-03-14] MEDS: ATORVASTATIN 80 MG TAB PO SCH (22:03)
[2021-03-14] MEDS: allopurinoL 100 MG TAB PO SCH (22:03)
[2021-03-14] MEDS: FOLIC ACID-VIT B COMPLEX-VIT C 1 CAP PO SCH (22:03)
[2021-03-15] MEDS: carvediloL 12.5 MG TAB PO SCH ×2 (05:43→17:15)
[2021-03-15 07:02] LABS: Glucose,Whole Blood 172 mg/dL (75-99)
[2021-03-15 09:25] LABS: Basophils # (A) 0.01 X 10*3/uL (0.00-0.10); Basophils % (A) 0.1 %; Eosinophils # (A) 0.04 X 10*3/uL (0.04-0.35); Eosinophils % (A) 0.6 %; HCT 31.3 % (39.6-50.0); HGB 9.6 g/dL (13.0-17.0); Lymphocytes # (A) 0.55 X 10*3/uL (0.90-5.00); Lymphocytes % (A) 8.1 %; MCH 32.5 pg (27.0-32.0); MCHC 30.7 g/dL (32.0-37.0); MCV 106.1 fL (80.0-97.0); Mean Platelet Volume 12.2 fL (9.5-12.2); Monocytes # (A) 0.45 X 10*3/uL (0.20-1.00); Monocytes % (A) 6.6 %; Neutrophils # (A) 5.73 X 10*3/uL (1.80-7.70); Neutrophils % (A) 84.2 %; Platelet Count 109 X 10*3/uL (140-440); RBC 2.95 X 10*6/uL (4.40-5.60); RDW 16.2 % (11.5-14.5); WBC 6.81 X 10*3/uL (4.50-10.00)
[2021-03-15] MEDS: TAMSULOSIN 0.4 MG CAP.ER.24H PO SCH (09:25)
[2021-03-15] MEDS: ASPIRIN 81 MG PO SCH (09:25)
[2021-03-15] MEDS: ISOSORBIDE MONONITRATE ER 30 MG TAB.ER.24H PO SCH (09:25)
[2021-03-15] MEDS: HEPARIN SODIUM,PORCINE/PF 5,000 UNIT/0.5 ML SYRINGE SQ SCH ×2 (09:26→21:01)
[2021-03-15] MEDS: CLOPIDOGREL 75 MG TAB PO SCH (09:26)
[2021-03-15] MEDS: INSULIN ASPART (NovoLOG) 100 UNIT/ML VIAL SQ SCH ×5 (09:26→20:48)
[2021-03-15] MEDS: FUROSEMIDE 10 MG/ML 4 ML VIAL IV SCH (09:26)
[2021-03-15] MEDS: hydrALAZINE HCL 10 MG TAB PO SCH ×2 (09:26→21:02)
[2021-03-15] MEDS: TIMOLOL 0.5% OPHTH DROPS 5 ML BTL BOTH EYES SCH ×2 (09:27→21:01)
[2021-03-15] MEDS: BRIMONIDINE TARTRATE 0.2% DROPS 5 ML BTL BOTH EYES SCH ×2 (09:27→21:01)
[2021-03-15] MEDS: FAMOTIDINE 20 MG TAB PO SCH (09:28)
[2021-03-15 11:35] LABS: Glucose,Whole Blood 265 mg/dL (75-99)
[2021-03-15 14:11] LABS: African American GFR (CKD) 31.5 (60.0-200.0); Anion Gap 9.6 mmol/L (4.00-12.00); BUN/Creat Ratio 22.61 Ratio (12.00-20.00); Calcium 7.7 mg/dL (8.7-10.3); Carbon Dioxide 22.4 mmol/L (21.6-31.8); Non-African American GFR(CKD) 27.2 (60.0-200.0); Potassium 4.1 mmol/L (3.5-5.5)
--- NOTE | 2021-03-15 14:42 | P.PN ---
Subjective Progress Note Date: 03/15/21 This is a 75-year-old male one of Dr. Swartz with a previous medical history significant for hypertension and hypertensive cardiovascular disease with left ventricular hypertrophy, history of ischemic cardiomyopathy ejection fraction of 20%, non-ST elevation myocardial infarction, moderate mitral regurgitation tricuspid regurgitation with severe pulmonary hypertension, diabetes mellitus type 2, chronic kidney disease stage IV, anemia, history of thrombocytopenia, recently hospitalized at [facility] with non-ST elevation [place] as well as acute systolic heart failure. Patient elected conservative management,discharged on 03/02/2021 and proceeded to [facility] the [place]. Return to [facility] to poor oral intake, black tarry stools, abdominal pain, abnormal labs. CT of abdomen and pelvis report pleural effusions, basilar infiltrates, acute CHF exacerbation, mild abdominal ascites. 03/14/2021 F/U chest x-ray suggesting acute early CHF. diuresing well on Lasix IV push. Creatinine up to 2.32 diet intake poor, consumed 0% of breakfast, 0% of lunch. Platelets trending down and currently 89, hematology followed on last admit and had discussed outpatient bone marrow biopsy, which is still pending. Maintaining O2 sats in the 90s on room air. 03/15/21 Appears withdrawn, depressed .Diet intake remains poor, even with spouse's encouragement. Diuresing well on Lasix IV, with 24-hour I&O reflecting a weight loss of 2 kg. BUN 52, creatinine 2.3. Afebrile, normal WBC, platelets incr. to 109. Maintaining O2 sats in the high 90s on room air. Denies chest pain, palpitations. Objective - Vital Signs Vital signs: Vital Signs Temp 97.8 F 03/15/21 13:31 Pulse 70 03/15/21 13:31 Resp 20 03/15/21 13:31 BP 134/70 03/15/21 13:31 Pulse Ox 97 03/15/21 13:31 Intake & Output 03/14/21 03/15/21 03/15/21 18:59 06:59 18:59 Intake Total 120 Balance 120 Weight 63 kg 61 kg Intake: Oral 120 Other: Voiding Method Diaper Diaper Diaper # Voids 1 1 # Bowel Movements 1 1 - Exam PHYSICAL EXAM: VITAL SIGNS: As above GENERAL: A & O X 2,Lying in bed, sleepy, curled in blankets, no acute distress, withdrawn, flat affect HEENT: Conjunctivae normal. eyes normal. Oral mucosa dry NECK: Supple, No JVD. CARDIOVASCULAR: S1, S2 regular. Systolic murmur RESPIRATION: Breath sounds diminished in the bases. No rhonchi or crackles. ABDOMEN: Soft, nondistended, nontender . No guarding. no masses palpable. Bowel sounds heard. LEGS: No edema. no swelling. No calf tenderness. NERVOUS SYSTEM: Cranial N 2-12 grossly normal. Moves all 4 limbs. Diffuse weakness, No focal deficits. Strength and sensation grossly intact. Skin: Warm and dry, no rash - Labs CBC & Chem 7: 03/15/21 06:23 03/15/21 06:23 Labs: Abnormal Lab Results - Last 24 Hours (Table) 03/14/21 03/14/21 03/15/21 Range/Units 16:48 20:20 06:23 RBC 2.95 L (4.40-5.60) X 10*6/uL Hgb 9.6 L (13.0-17.0) g/dL Hct 31.3 L (39.6-50.0) % MCV 106.1 H (80.0-97.0) fL MCH 32.5 H (27.0-32.0) pg MCHC 30.7 L (32.0-37.0) g/dL RDW 16.2 H (11.5-14.5) % Plt Count 109 L (140-440) X 10*3/uL Lymphocytes # 0.55 L (0.90-5.00) X 10*3/uL Sodium (135-145) mmol/L Chloride (96-109) mmol/L BUN (9.0-27.0) mg/dL Creatinine (0.6-1.5) mg/dL Est GFR (CKD-EPI)AfAm (60.0-200.0) Est GFR (CKD-EPI)NonAf (60.0-200.0) BUN/Creatinine Ratio (12.00-20.00) Ratio Glucose (70-110) mg/dL POC Glucose (mg/dL) 111 H 119 H (75-99) mg/dL Calcium (8.7-10.3) mg/dL 03/15/21 03/15/21 03/15/21 Range/Units 06:23 07:00 11:33 RBC (4.40-5.60) X 10*6/uL Hgb (13.0-17.0) g/dL Hct (39.6-50.0) % MCV (80.0-97.0) fL MCH (27.0-32.0) pg MCHC (32.0-37.0) g/dL RDW (11.5-14.5) % Plt Count (140-440) X 10*3/uL Lymphocytes # (0.90-5.00) X 10*3/uL Sodium 146 H (135-145) mmol/L Chloride 114 H (96-109) mmol/L BUN 52.0 H (9.0-27.0) mg/dL Creatinine 2.3 H (0.6-1.5) mg/dL Est GFR (CKD-EPI)AfAm 31.5 L (60.0-200.0) Est GFR (CKD-EPI)NonAf 27.2 L (60.0-200.0) BUN/Creatinine Ratio 22.61 H (12.00-20.00) Ratio Glucose 140 H (70-110) mg/dL POC Glucose (mg/dL) 172 H 265 H (75-99) mg/dL Calcium 7.7 L (8.7-10.3) mg/dL Assessment and Plan Assessment: Acute on Chronic systolic CHF Acute on Chronic renal failure IV, acute related to poor oral intake, cardiorenal syndrome Recent NSTEMI, conservative management Elevated troponins,decreased from prior admission,related to the above and acute renal failure Severe protein calorie malnutrition, BMI 22.4 Failure to thrive, multifactorial, including the above and #1 Acute dehydration Hypokalemia secondary to poor intake and diuretics Anemia of chronic kidney disease Thrombocytopenia, evaluated by oncology/hematology last visit, bone marrow biopsy pending Diabetes mellitus Ischemic cardiomyopathy, EF less than 20% Moderate pulmonary hypertension Multivalvular disease Depression Plan: Continue on current medication regime ,monitoring and symptomatic treatment. Psychiatry consulted regarding depression. Diurese on IV push Lasix, convert to oral tomorrow. Maintain strict monitoring of I&O's. Close monitoring of electrolytes, renal function,HGb/plts with repeat labs ordered for a.m. Continue encouraging oral intake.Palliative care option as well as code status will be discussed with family. Prognosis poor given multiple complex medical issues,including minimal to no oral intake. Maintain supportive care. The impression and plan of care has been dictated as directed. : I performed a history and examination of this patient, discussed the same with the dictator. I agree with the dictator's note ,documented as a scribe. Any additional findings or plans will be noted.
[2021-03-15 16:58] LABS: Glucose,Whole Blood 317 mg/dL (75-99)
[2021-03-15 20:45] LABS: Glucose,Whole Blood 126 mg/dL (75-99)
[2021-03-15] MEDS: INSULIN DETEMIR (LEVEMIR) 100 UNIT/ML SYR SQ SCH (20:49)
[2021-03-15] MEDS: FOLIC ACID-VIT B COMPLEX-VIT C 1 CAP PO SCH ×2 (21:01→21:21)
[2021-03-15] MEDS: ATORVASTATIN 80 MG TAB PO SCH (21:02)
[2021-03-15] MEDS: allopurinoL 100 MG TAB PO SCH (21:02)
[2021-03-16] MEDS: carvediloL 12.5 MG TAB PO SCH ×2 (05:31→17:15)
[2021-03-16 07:28] LABS: Glucose,Whole Blood 247 mg/dL (75-99)
[2021-03-16] MEDS: CLOPIDOGREL 75 MG TAB PO SCH (10:16)
[2021-03-16] MEDS: ASPIRIN 81 MG PO SCH (10:16)
[2021-03-16] MEDS: FAMOTIDINE 20 MG TAB PO SCH (10:16)
[2021-03-16] MEDS: ISOSORBIDE MONONITRATE ER 30 MG TAB.ER.24H PO SCH (10:16)
[2021-03-16] MEDS: TAMSULOSIN 0.4 MG CAP.ER.24H PO SCH (10:16)
[2021-03-16] MEDS: hydrALAZINE HCL 10 MG TAB PO SCH ×2 (10:17→22:15)
[2021-03-16] MEDS: FUROSEMIDE 10 MG/ML 4 ML VIAL IV SCH (10:17)
[2021-03-16] MEDS: TIMOLOL 0.5% OPHTH DROPS 5 ML BTL BOTH EYES SCH ×2 (10:17→22:16)
[2021-03-16] MEDS: BRIMONIDINE TARTRATE 0.2% DROPS 5 ML BTL BOTH EYES SCH ×2 (10:17→22:16)
[2021-03-16] MEDS: HEPARIN SODIUM,PORCINE/PF 5,000 UNIT/0.5 ML SYRINGE SQ SCH ×2 (10:18→22:15)
[2021-03-16] MEDS: INSULIN ASPART (NovoLOG) 100 UNIT/ML VIAL SQ SCH ×4 (10:18→22:16)
[2021-03-16 11:38] LABS: Glucose,Whole Blood 302 mg/dL (75-99)
--- NOTE | 2021-03-16 11:51 | P.DS ---
Providers Date of admission: 03/12/21 20:33 Expected date of discharge: 03/16/21 Attending physician: Maikel Swartz Consults: 03/12/21 23:45 Consult Physician Routine Consulting Provider: Jose J Bunn Consult Reason/Comments: Elevated troponin Do you want consulting provider notified?: Yes, Notify in am 03/15/21 14:20 Consult Physician Routine Consulting Provider: Jordan Fong Consult Reason/Comments: depression,recent NSTEMI Do you want consulting provider notified?: Yes Primary care physician: Richard Spencer Hospital Course: Final Diagnoses: Acute on Chronic systolic CHF Acute on Chronic renal failure IV, acute related to poor oral intake, cardiorenal syndrome. Creatinine at baseline. Recent NSTEMI, conservative management Elevated troponins,decreased from prior admission,related to the above and acute renal failure Severe protein calorie malnutrition, BMI 22.4 Failure to thrive, multifactorial, including the above and #1 Acute dehydration Hypokalemia secondary to poor intake and diuretics, resolved Anemia of chronic kidney disease Thrombocytopenia, evaluated by oncology/hematology last visit, bone marrow biopsy pending OP. Diabetes mellitus, hyperglycemic, long-acting insulin increased Ischemic cardiomyopathy, EF less than 20% Moderate pulmonary hypertension Multivalvular disease Depression Hospital course:This is a 75-year-old male one of Dr. Swartz with a previous medical history significant for hypertension and hypertensive cardiovascular disease with left ventricular hypertrophy, history of ischemic cardiomyopathy ejection fraction of 20%, non-ST elevation myocardial infarction, moderate mitral regurgitation tricuspid regurgitation with severe pulmonary hypertension, diabetes mellitus type 2, chronic kidney disease stage IV, anemia, history of thrombocytopenia, recently hospitalized at [facility] with non-ST elevation [place] as well as acute systolic heart failure. Patient elected conservative management,discharged on 03/02/2021 and proceeded to [facility] on the [place]. Return to [facility] secondary to poor oral intake, black tarry stools, abdominal pain, abnormal labs. CT of abdomen and pelvis report pleural effusions, basilar infiltrates, acute CHF exacerbation, mild abdominal ascites. 03/14/2021 F/U chest x-ray suggesting acute early CHF. diuresing well on Lasix IV push. Creatinine up to 2.32 diet intake poor, consumed 0% of breakfast, 0% of lunch. Platelets trending down and currently 89, hematology followed on last admit and had discussed outpatient bone marrow biopsy, which is still pending. Maintaining O2 sats in the 90s on room air. 03/15/21 Appears withdrawn, depressed .Diet intake remains poor, even with spouse's encouragement. Diuresing well on Lasix IV, with 24-hour I&O reflecting a weight loss of 2 kg. BUN 52, creatinine 2.3. Afebrile, normal WBC, platelets incr. to 109. Maintaining O2 sats in the high 90s on room air. Denies chest pain, palpitations. PCP, Dr. Swartz discussed with patient's poor prognosis. Spouse is very much aware that patient's oral intake has been extremely poor, minimal to no intake over the last 4 weeks and continued during this admission despite ongoing encouragement,. CODE STATUS per their discussion changed to no code, no CPR, no intubation. Creatinine at baseline, Lasix resumed at discharge with close monitoring of renal function, electrolytes. Patient will be discharged to [facility] subacute rehab in a stable condition with guarded prognosis. is interested in palliative care. The impression and plan of care has been dictated as directed. : I performed a history and examination of this patient, discussed the same with the dictator. I agree with the dictator's note ,documented as a scribe. Any additional findings or plans will be noted. Patient Condition at Discharge: Stable Plan - Discharge Summary Discharge Rx Participant: No New Discharge Prescriptions: New Furosemide [Lasix] 40 mg PO DAILY #30 tablet Glucerna Shake 1 can PO TID BETWEEN MEALS #18 can Continue calcitrioL [Rocaltrol] 0.25 mcg PO TUFR Brimonidine Tartrate [Alphagan P 0.2% Ophth Soln] 1 drop BOTH EYES BID@0900,2100 allopurinoL [Zyloprim] 100 mg PO HS@2100 Aspirin 81 mg PO DAILY@0900 carvediloL [Coreg*] 12.5 mg PO BID@0630,1800 tab Acetaminophen Tab [Tylenol] 650 mg PO Q6HR PRN tab PRN Reason: Mild Pain Or Fever > 100.5 INSULIN LISPRO (HumaLOG) [humaLOG] See Protocol SQ ACHS@08,12,17,21 Tamsulosin [Flomax] 0.4 mg PO DAILY@0900 Clopidogrel [Plavix] 75 mg PO DAILY@0900 Nitroglycerin Sl Tabs [Nitrostat] 0.4 mg PO Q5M PRN PRN Reason: Chest Pain Timolol 0.5% Ophth Soln [Timoptic 0.5% Ophth Soln] 1 drop BOTH EYES BID@0900,2099 hydrALAZINE HCL [Apresoline] 10 mg PO BID@0900,2099 Isosorbide Mononitrate ER [Imdur] 15 mg PO DAILY@0900 Ferrous Gluconate 324 mg PO BID@0900,2099 Nephrovite 1 cap PO HS@2099 Atorvastatin [Lipitor] 80 mg PO HS@2100 tab Lactose-Reduced Food [Ensure Plus] 240 ml PO BID@0900,1700 Changed Insulin Glargine,Hum.rec.anlog [Semglee Pen] 20 unit SQ HS@2099 #0 Discontinued ALPRAZolam [Xanax] 0.25 mg PO BID PRN PRN Reason: Anxiety Discharge Medication List Aspirin 81 mg PO DAILY@0902/24/21 [History] Brimonidine Tartrate [Alphagan P 0.2% Ophth Soln] 1 drop BOTH EYES BID@0900,209902/24/21 [History] Ferrous Gluconate 324 mg PO BID@0900,209902/24/21 [History] Isosorbide Mononitrate ER [Imdur] 15 mg PO DAILY@89902/24/21 [History] Nephrovite 1 cap PO HS@209902/24/21 [History] Timolol 0.5% Ophth Soln [Timoptic 0.5% Ophth Soln] 1 drop BOTH EYES BID@0900,209902/24/21 [History] allopurinoL [Zyloprim] 100 mg PO HS@209902/24/21 [History] calcitrioL [Rocaltrol] 0.25 mcg PO TUFR 02/24/21 [History] hydrALAZINE HCL [Apresoline] 10 mg PO BID@0900,209902/24/21 [History] Acetaminophen Tab [Tylenol] 650 mg PO Q6HR PRN tab 02/28/21 [Rx] Atorvastatin [Lipitor] 80 mg PO HS@2099 tab 02/28/21 [Rx] carvediloL [Coreg*] 12.5 mg PO BID@0630,1800 tab 02/28/21 [Rx] Clopidogrel [Plavix] 75 mg PO DAILY@0900 03/12/21 [History] INSULIN LISPRO (HumaLOG) [humaLOG] See Protocol SQ ACHS@08,12,17,21 03/12/21 [History] Lactose-Reduced Food [Ensure Plus] 240 ml PO BID@0900,1700 03/12/21 [History] Nitroglycerin Sl Tabs [Nitrostat] 0.4 mg PO Q5M PRN 03/12/21 [History] Tamsulosin [Flomax] 0.4 mg PO DAILY@0900 03/12/21 [History] Furosemide [Lasix] 40 mg PO DAILY #30 tablet 03/16/21 [Rx] Glucerna Shake 1 can PO TID BETWEEN MEALS #18 can 03/16/21 [Rx] Insulin Glargine,Hum.rec.anlog [Semglee Pen] 20 unit SQ HS@2100 #0 03/16/21 [Rx] Follow up Appointment(s)/Referral(s): Richard Spencer MD [Primary Care Provider] - 1-2 days Activity/Diet/Wound Care/Special Instructions: herminio jimenez,bmp 2 days Discharge Disposition: TRANSFER TO SNF/ECF
--- NOTE | 2021-03-16 14:07 | P.CN ---
Psychiatric Consult - . Consult date: 03/16/21 Consult:: 03/16/21 14:00 IDENTIFYING DATA: This patient is a 75-year-old male with a history of dementia who currently lives at [facility] as 1 kid. REASON FOR REFERRAL: Psychiatry was consulted for depression, recent NSTEMI HISTORY OF PRESENT ILLNESS: The patient presented to the hospital and according to ER report patient was admitted for failure to thrive and having black stools. Patient was also shown to be depressed and withdrawn and having a poor appetite. Patient's nurse claims that the patient has been getting one-word answers not eating well as been fairly constricted in his affect. Patient was seen at the bedside sitting on his chair and agreeable to speak to documentation writer. He was fairly constricted and only gave one-word answers and very monotone. He denied any complaints and states that he is doing "okay". He spoke about going back to the shelter. He is denying any depression today or anxiety. He appeared to speak very slowly and hesitant with his words. He was alert and oriented to person place however does not know today's date. He claims that his sleep is fair and appetite is poor. At this time patient denies any suicidal or homical ideations, intent or plan. Patient denies any auditory, visual hallucinations and denies any paranoia or delusions. Patients admits to using no recreational drugs PAST PSYCHIATRIC HISTORY: Patient has a a history of dementia. Patient denies being on any psychiatric medications. Patient denies any previous psychiatric hospitalizations. Patient denies any psychiatric outpatient follow-up. Patient denies any history of suicide attempts in the past. PAST MEDICAL HISTORY: Dementia, diabetes mellitus, hypertension, hyperlipidemia, prostate cancer. ALLERGIES: as per EMR. CHEMICAL DEPENDENCY HISTORY: as per HPI. FAMILY PSYCHIATRIC/SUBSTANCE USE HISTORY: denies SOCIAL HISTORY: Patient was born and raised in [facility]. 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 MENTAL STATUS EXAM: General Appearance: Patient appears to be thin, stated age is alert, constricted. Patient appears to have fair hygiene and grooming wearing hospital gown with poor eye contact. Behavior: Patient is calmly sitting on the chair without any agitated behavior. Speech: Patient's speech is fluent and nonpressured. Monotone. Hesitant. Mood/Affect: Patient reports their mood is "ok", affect is congruent and constricted Suicidality/Homicidality: Patient denies having any suicidal or homicidal ideation intent or plan. Perceptions: Patient denies any visual hallucinations and denies any auditory hallucinations Though content/process: [place], poverty of content. Poor historian. Memory and concentration: AOX2, know today's date, Can spell "WORLD" backwards Judgment and insight: limited IMPRESSIONS: Depressive disorder unspecified, rule out adjustment disorder History of dementia PLAN: -At this time patient DOES NOT meet criteria for inpatient psychiatric admission. -Delirium precautions recommended with patient including - avoiding use of narcotics and TUBE WINDER sedatives, limit anticholinergic medications when possible, frequent re-orientation, minimize use of restraints, open window shades during the day and close them at night -Would recommend the following medication changes/additions: Remeron 7.5 mg daily at bedtime for insomnia/mood/appetite. -tray line worker to provide patient with outpatient mental health/psychiatry resources for appropriate follow up upon discharge -Patient will be discharged back to [facility] today. -Communicated plan to patient's nurse -Psychiatry will sign off at this time -Please contact with any questions.
[2021-03-16 16:37] LABS: Glucose,Whole Blood 127 mg/dL (75-99)
[2021-03-16 20:42] LABS: Glucose,Whole Blood 121 mg/dL (75-99)
[2021-03-16] MEDS ORDERED: MIRTAZAPINE 15 MG TAB PO SCH (21:00)
[2021-03-16] MEDS: FOLIC ACID-VIT B COMPLEX-VIT C 1 CAP PO SCH (22:14)
[2021-03-16] MEDS: ATORVASTATIN 80 MG TAB PO SCH (22:14)
[2021-03-16] MEDS: allopurinoL 100 MG TAB PO SCH (22:15)
[2021-03-16] MEDS: INSULIN DETEMIR (LEVEMIR) 100 UNIT/ML SYR SQ SCH (22:16)
[2021-03-17] MEDS: carvediloL 12.5 MG TAB PO SCH (05:39)
[2021-03-17 07:22] LABS: Glucose,Whole Blood 187 mg/dL (75-99)
[2021-03-17 07:33] VITALS: BP 147/84; PULSE 74; RESP 16; TEMP 97.6
[2021-03-17] MEDS: INSULIN ASPART (NovoLOG) 100 UNIT/ML VIAL SQ SCH (09:33)
[2021-03-17] MEDS: ASPIRIN 81 MG PO SCH (09:34)
[2021-03-17] MEDS: hydrALAZINE HCL 10 MG TAB PO SCH (09:35)
[2021-03-17] MEDS: ISOSORBIDE MONONITRATE ER 30 MG TAB.ER.24H PO SCH (09:35)
[2021-03-17] MEDS: CLOPIDOGREL 75 MG TAB PO SCH (09:37)
[2021-03-17] MEDS: BRIMONIDINE TARTRATE 0.2% DROPS 5 ML BTL BOTH EYES SCH (09:37)
[2021-03-17] MEDS: FAMOTIDINE 20 MG TAB PO SCH (09:37)
[2021-03-17] MEDS: HEPARIN SODIUM,PORCINE/PF 5,000 UNIT/0.5 ML SYRINGE SQ SCH (09:37)
[2021-03-17] MEDS: TAMSULOSIN 0.4 MG CAP.ER.24H PO SCH (09:37)
[2021-03-17] MEDS: FUROSEMIDE 10 MG/ML 4 ML VIAL IV SCH (09:38)
[2021-03-17] MEDS: TIMOLOL 0.5% OPHTH DROPS 5 ML BTL BOTH EYES SCH (09:43)
== END 2021-03-17 12:36 ==
LOC: EC 18:52 → 4SSUR 20:33 → 3SCARD 22:29 → 4SSUR 03-14 12:01
PROVIDERS: ADMIT Family Medicine; ATTEND Family Medicine
DX: E86.0 Dehydration (principal); N17.9 Acute kidney failure, unspecified; I13.0 Hypertensive heart and chronic kidney disease with heart failure and stage 1 through stage 4 chronic kidney disease, or unspecified chronic kidney disease; I50.23 Acute on chronic systolic (congestive) heart failure; N18.4 Chronic kidney disease, stage 4 (severe); E43 Unspecified severe protein-calorie malnutrition; E87.6 Hypokalemia; E11.22 Type 2 diabetes mellitus with diabetic chronic kidney disease; I25.5 Ischemic cardiomyopathy; I08.1 Rheumatic disorders of both mitral and tricuspid valves; I27.20 Pulmonary hypertension, unspecified; I25.10 Atherosclerotic heart disease of native coronary artery without angina pectoris; D63.1 Anemia in chronic kidney disease; D53.9 Nutritional anemia, unspecified; E11.65 Type 2 diabetes mellitus with hyperglycemia; F03.90 Unspecified dementia, unspecified severity, without behavioral disturbance, psychotic disturbance, mood disturbance, and anxiety; E78.5 Hyperlipidemia, unspecified; R62.7 Adult failure to thrive; K57.30 Diverticulosis of large intestine without perforation or abscess without bleeding; R18.8 Other ascites; R79.89 Other specified abnormal findings of blood chemistry; I25.2 Old myocardial infarction; D69.6 Thrombocytopenia, unspecified; N25.81 Secondary hyperparathyroidism of renal origin; H40.9 Unspecified glaucoma; R91.8 Other nonspecific abnormal finding of lung field; R19.5 Other fecal abnormalities; Z68.22 Body mass index [BMI] 22.0-22.9, adult; F32.9 Major depressive disorder, single episode, unspecified; Z79.82 Long term (current) use of aspirin; Z79.899 Other long term (current) drug therapy; Z79.02 Long term (current) use of antithrombotics/antiplatelets; Z79.4 Long term (current) use of insulin; Z88.2 Allergy status to sulfonamides; Z91.018 Allergy to other foods; Z85.46 Personal history of malignant neoplasm of prostate; Z98.42 Cataract extraction status, left eye; Z98.41 Cataract extraction status, right eye; Z90.79 Acquired absence of other genital organ(s); Z98.890 Other specified postprocedural states; Z82.49 Family history of ischemic heart disease and other diseases of the circulatory system
CPT/HCPCS: 96376 ×3; 96372 ×5; 96361 ×3; 96375; 96374; 99285; 36415; 93005; 97162; 97530; 97166; 86900; 86901; 80053 ×2; 80048 ×2; 82607; 82728; 82746; 83540; 83550; 83605; 83615; 83735; 84484 ×2; 85025 ×3; 85027; 85610; 85045; 85730; 86850; 82272; 83010; 83883; 87635; 71045; 74176; G0378 ×8; J1940 ×4; C9113; J1644 ×5

== ENCOUNTER 2021-03-21 08:53 | Inpatient (IN) | payer MEDICARE ==
[2021-03-21 09:51] LABS: Lactic Acid, Venous 1.8 mmol/L (0.7-2.0)
[2021-03-21 09:55] LABS: Albumin 2.6 g/dL (3.5-5.0); Calcium 8.3 mg/dL (8.4-10.2); INR 1.3 (<1.2); Magnesium 2.4 mg/dL (1.6-2.3); Partial Thromboplastin Time 25.3 sec (22.0-30.0); Potassium 3.6 mmol/L (3.5-5.1); Prothrombin Time 13.3 sec (9.0-12.0); Total Bilirubin 0.7 mg/dL (0.2-1.3); Total Protein 5.5 g/dL (6.3-8.2)
[2021-03-21 10:02] LABS: Anisocytosis Slight; Basophils % (A) 0 %; Eosinophils % (A) 0 %; HCT 31.1 % (39.0-53.0); Hypochromasia Marked; Lymphocytes # (A) 0.7 k/uL (1.0-4.8); Lymphocytes % (A) 9 %; MCH 33.1 pg (25.0-35.0); MCV 103.4 fL (80.0-100.0); Macrocytosis Moderate; Mean Platelet Volume 10.4; Monocytes # (A) 0.5 k/uL (0-1.0); Monocytes % (A) 7 %; Neutrophils # (A) 6.2 k/uL (1.3-7.7); Neutrophils % (A) 83 %; Platelet Count 110 k/uL (150-450); Poikilocytosis Moderate; RBC 3.01 m/uL (4.30-5.90); RDW 16.3 % (11.5-15.5); WBC 7.5 k/uL (3.8-10.6)
--- NOTE | 2021-03-21 10:17 | ED ---
General Adult HPI - General Chief complaint: Altered Mental Status Stated complaint: Weakness Time Seen by Provider: 03/21/21 09:06 Source: EMS Mode of arrival: EMS Limitations: no limitations - History of Present Illness Initial comments: Dictation was produced using [employer] dictation software. please excuse any grammatical, word or spelling errors. Chief Complaint: 75-year-old male past medical history diabetes, dementia, renal disease presents to the emergency via for failure to thrive. History of Present Illness: 75-year-old male recently discharged from the hospital presents to the emergency department today for failure to thrive. Patient a currently a resident at [facility]. Patient was brought in for further thrive. He hasn't been eating or drinking. History is limited. Patient has history of dementia. He is found to be a little more lethargic than usual. Patient unable to provide history at this time. It is unclear what patient's normal baseline mental status is. Patient is allegedly full code EMS. Unable to obtain review of systems second or 2 mental status. PHYSICAL EXAM: General Impression: Lethargic, responds to painful stimuli and voice HEENT: Normocephalic atraumatic, extra-ocular movements intact, pupils equal and reactive to light bilaterally, dry mucous membranes Cardiovascular: Heart regular rate and rhythm Chest: Lungs clear to auscultation bilaterally, no retractions, no tachypnea Abdomen: abdomen soft, non-tender, non-distended, no organomegaly Musculoskeletal: Pulses present and equal in all extremities, no peripheral edema Motor: no focal deficits noted Neurological: no focal motor or sensory deficits noted Skin: Intact with no visualized rashes ED course: 75-year-old male with multiple comorbidities presents to the emergency department for failure to thrive. History received from EMS. They state that patient has not been eating or drinking. He is seems to be more lethargic than usual. Vital signs upon arrival are within acceptable limits. Laboratory evaluation obtained. CBC appears to be a patient's baseline. Sodium today is 149. Likely secondary to dehydration. Renal markers appear to be baseline. Troponin is slightly above his usual and so 0.129. Urinalysis negative. Chest x-ray suggest heart failure however/showing signs of respirat ory distress. Patient be admitted for failure to thrive, grave disability and dehydration. Case discussed with [facility] hospitalist group. EKG interpretation: Ventricular rate 72, normal sinus rhythm,. Interval 90, QRS 72, QTc 523. No MT prolongation, no ST or T-wave changes noted. EKG compared to 03/12/2021 showing no changes. - Related Data Home Medications Medication Instructions Recorded Confirmed Aspirin 81 mg PO DAILY@89902/24/21 03/21/21 Brimonidine Tartrate [Alphagan P 1 drop BOTH EYES BID@899,209902/24/21 03/21/21 0.2% Ophth Soln] Ferrous Gluconate 324 mg PO BID@899,209902/24/21 03/21/21 Isosorbide Mononitrate ER [Imdur] 15 mg PO DAILY@89902/24/21 03/21/21 Nephrovite 1 cap PO HS@209902/24/21 03/21/21 Timolol 0.5% Ophth Soln [Timoptic 1 drop BOTH EYES BID@0900,209902/24/21 03/21/21 0.5% Ophth Soln] allopurinoL [Zyloprim] 100 mg PO HS@209902/24/21 03/21/21 calcitrioL [Rocaltrol] 0.25 mcg PO TUFR 02/24/21 03/21/21 hydrALAZINE HCL [Apresoline] 10 mg PO BID@899,209902/24/21 03/21/21 Clopidogrel [Plavix] 75 mg PO DAILY@89903/12/21 03/21/21 INSULIN LISPRO (HumaLOG) [humaLOG] See Protocol SQ ACHS@08,12,17,03/12/21 03/21/21 Nitroglycerin Sl Tabs [Nitrostat] 0.4 mg PO Q5M PRN 03/12/21 03/21/21 Tamsulosin [Flomax] 0.4 mg PO DAILY@89903/12/21 03/21/21 Furosemide [Lasix] 40 mg PO DAILY@59903/21/21 03/21/21 Glucerna Shake 1 can PO AC-TID 03/21/21 03/21/21 carvediloL [Coreg*] 12.5 mg PO BID@0900,209903/21/21 03/21/21 Previous Rx's Medication Instructions Recorded Acetaminophen Tab [Tylenol] 650 mg PO Q6HR PRN tab 02/28/21 Atorvastatin [Lipitor] 80 mg PO HS@2100 tab 02/28/21 Insulin Glargine,Hum.rec.anlog 20 unit SQ HS@2100 #0 03/16/21 [Semglee Pen] Allergies Allergy/AdvReac Type Severity Reaction Status Date / Time Fish Containing Products Allergy Swelling Verified 03/21/21 09:42 [Fish] Sulfa (Sulfonamide Allergy Unknown Verified 03/21/21 09:42 Antibiotics) Childhood Review of Systems ROS Statement: Those systems with pertinent positive or pertinent negative responses have been documented in the HPI. ROS Other: All systems not noted in ROS Statement are negative. Past Medical History Past Medical History: Cancer, Diabetes Mellitus, Hyperlipidemia, Hypertension, Prostate Disorder, Renal Disease Additional Past Medical History / Comment(s): Prostate cancer with surgery in 2007, Patient states he has issues with his kidney's and has been seeing doctor Mason since August 2018. History of Any Multi-Drug Resistant Organisms: None Reported Past Surgical History: Orthopedic Surgery, Prostate Surgery Additional Past Surgical History / Comment(s): RIGHT ANKLE 2009, Bilateral Cataract 2016, Colonoscopy August 2018, Prostate surgery 2007 Past Anesthesia/Blood Transfusion Reactions: No Reported Reaction Past Psychological History: No Psychological Hx Reported Smoking Status: Never smoker Past Alcohol Use History: Rare Past Drug Use History: None Reported - Past Family History Mother Family Medical History: No Reported History Additional Family Medical History / Comment(s): CHF Father Family Medical History: No Reported History Additional Family Medical History / Comment(s): Patient states father from a massive heart attack. General Exam Limitations: no limitations Course Vital Signs 03/21/21 03/21/21 03/21/21 08:54 10:25 11:24 Temperature 97.9 F Pulse Rate 74 69 Respiratory 18 17 20 Rate Blood Pressure 136/84 148/81 O2 Sat by Pulse 100 100 Oximetry 03/21/21 11:40 Temperature Pulse Rate 78 Respiratory 17 Rate Blood Pressure 150/95 O2 Sat by Pulse 99 Oximetry Medical Decision Making - Lab Data Result diagrams: 03/21/21 09:22 03/21/21 09:22 Lab Results 03/21/21 03/21/21 03/21/21 Range/Units 09:22 09:22 09:22 WBC 7.5 (3.8-10.6) k/uL RBC 3.01 L (4.30-5.90) m/uL Hgb 10.0 L (13.0-17.5) gm/dL Hct 31.1 L (39.0-53.0) % MCV 103.4 H (80.0-100.0) fL MCH 33.1 (25.0-35.0) pg MCHC 32.0 (31.0-37.0) g/dL RDW 16.3 H (11.5-15.5) % Plt Count 110 L (150-450) k/uL MPV 10.4 Neutrophils % 83 % Lymphocytes % 9 % Monocytes % 7 % Eosinophils % 0 % Basophils % 0 % Neutrophils # 6.2 (1.3-7.7) k/uL Lymphocytes # 0.7 L (1.0-4.8) k/uL Monocytes # 0.5 (0-1.0) k/uL Eosinophils # 0.0 (0-0.7) k/uL Basophils # 0.0 (0-0.2) k/uL Hypochromasia Marked Poikilocytosis Moderate Anisocytosis Slight Macrocytosis Moderate PT 13.3 H (9.0-12.0) sec INR 1.3 H (<1.2) APTT 25.3 (22.0-30.0) sec Sodium 149 H (137-145) mmol/L Potassium 3.6 (3.5-5.1) mmol/L Chloride 116 H (98-107) mmol/L Carbon Dioxide 26 (22-30) mmol/L Anion Gap 7 mmol/L BUN 50 H (9-20) mg/dL Creatinine 2.06 H (0.66-1.25) mg/dL Est GFR (CKD-EPI)AfAm 36 (>60 ml/min/1.73 sqM) Est GFR (CKD-EPI)NonAf 31 (>60 ml/min/1.73 sqM) Glucose 146 H (74-99) mg/dL Plasma Lactic Acid Hima (0.7-2.0) mmol/L Calcium 8.3 L (8.4-10.2) mg/dL Magnesium 2.4 H (1.6-2.3) mg/dL Total Bilirubin 0.7 (0.2-1.3) mg/dL AST 19 (17-59) U/L ALT 21 (4-49) U/L Alkaline Phosphatase 102 (38-126) U/L Ammonia (<30) umol/L Troponin I (0.000-0.034) ng/mL Total Protein 5.5 L (6.3-8.2) g/dL Albumin 2.6 L (3.5-5.0) g/dL TSH 2.050 (0.465-4.680) mIU/L Urine Color Urine Appearance (Clear) Urine pH (5.0-8.0) Ur Specific Morrison (1.001-1.035) Urine Protein (Negative) Urine Glucose (UA) (Negative) Urine Ketones (Negative) Urine Blood (Negative) Urine Nitrite (Negative) Urine Bilirubin (Negative) Urine Urobilinogen (<2.0) mg/dL Ur Leukocyte Esterase (Negative) Urine WBC (0-5) /hpf Ur Squamous Epith Cells (0-4) /hpf Amorphous Sediment (None) /hpf 03/21/21 03/21/21 03/21/21 Range/Units 09:22 09:22 10:25 WBC (3.8-10.6) k/uL RBC (4.30-5.90) m/uL Hgb (13.0-17.5) gm/dL Hct (39.0-53.0) % MCV (80.0-100.0) fL MCH (25.0-35.0) pg MCHC (31.0-37.0) g/dL RDW (11.5-15.5) % Plt Count (150-450) k/uL MPV Neutrophils % % Lymphocytes % % Monocytes % % Eosinophils % % Basophils % % Neutrophils # (1.3-7.7) k/uL Lymphocytes # (1.0-4.8) k/uL Monocytes # (0-1.0) k/uL Eosinophils # (0-0.7) k/uL Basophils # (0-0.2) k/uL Hypochromasia Poikilocytosis Anisocytosis Macrocytosis PT (9.0-12.0) sec INR (<1.2) APTT (22.0-30.0) sec Sodium (137-145) mmol/L Potassium (3.5-5.1) mmol/L Chloride (98-107) mmol/L Carbon Dioxide (22-30) mmol/L Anion Gap mmol/L BUN (9-20) mg/dL Creatinine (0.66-1.25) mg/dL Est GFR (CKD-EPI)AfAm (>60 ml/min/1.73 sqM) Est GFR (CKD-EPI)NonAf (>60 ml/min/1.73 sqM) Glucose (74-99) mg/dL Plasma Lactic Acid Hima 1.8 (0.7-2.0) mmol/L Calcium (8.4-10.2) mg/dL Magnesium (1.6-2.3) mg/dL Total Bilirubin (0.2-1.3) mg/dL AST (17-59) U/L ALT (4-49) U/L Alkaline Phosphatase (38-126) U/L Ammonia <9 (<30) umol/L Troponin I 0.129 H* (0.000-0.034) ng/mL Total Protein (6.3-8.2) g/dL Albumin (3.5-5.0) g/dL TSH (0.465-4.680) mIU/L Urine Color Yellow Urine Appearance Cloudy (Clear) Urine pH 5.0 (5.0-8.0) Ur Specific Morrison 1.014 (1.001-1.035) Urine Protein 1+ H (Negative) Urine Glucose (UA) Negative (Negative) Urine Ketones Negative (Negative) Urine Blood Negative (Negative) Urine Nitrite Negative (Negative) Urine Bilirubin Negative (Negative) Urine Urobilinogen <2.0 (<2.0) mg/dL Ur Leukocyte Esterase Negative (Negative) Urine WBC 2 (0-5) /hpf Ur Squamous Epith Cells <1 (0-4) /hpf Amorphous Sediment Occasional H (None) /hpf Disposition Clinical Impression: Failure to thrive, Dehydration Disposition: ADMITTED IP TO THIS HOSP Condition: Fair Referrals: Richard Spencer MD [Primary Care Provider] - 1-2 days
[2021-03-21] MEDS ORDERED: NALOXONE 0.4 MG/ML 1 ML VIAL IVP STA (10:29)
--- NOTE | 2021-03-21 10:33 | XR ---
EXAMINATION TYPE: XR chest 1V portable DATE OF EXAM: 03/21/2021 COMPARISON: 03/06/2021 HISTORY: Failure to thrive weakness TECHNIQUE: Single frontal view of the chest is obtained. FINDINGS: Low lung volumes. Heart size is enlarged. Patchy perihilar and interstitial airspace opaci ties are most suggestive of edema. Underlying bibasilar infection is not excluded. Small bilateral pl eural effusions, left greater than right. No pneumothorax. IMPRESSION: 1. Findings are suggestive of congestive heart failure. Underlying infectious/inflammatory process is not excluded. Findings have increased since prior exam.
[2021-03-21 10:40] LABS: Amorphous Sediment,Urine Occasional /hpf; Appearance,Urine Cloudy (Clear); Bilirubin,Urine Negative (Negative); Blood,Urine Negative (Negative); Color,Urine Yellow; Glucose,Urine (UA) Negative (Negative); Ketones,Urine Negative (Negative); Leukocyte Esterase,Urine Negative (Negative); Nitrite,Urine Negative (Negative); Protein,Urine 1+ (Negative); Specific Gravity,Urine 1.014 (1.001-1.035); Squamous Epithelial Cell,Urine <1 /hpf (0-4); Urobilinogen,Urine <2.0 mg/dL (<2.0); WBC,Urine 2 /hpf (0-5)
[2021-03-21] MEDS: SODIUM CHLORIDE 0.9% 1,000 ML IV SCH ×2 (12:04→16:50)
[2021-03-21 16:46] LABS: Glucose,Whole Blood 129 mg/dL (75-99)
[2021-03-21] MEDS ORDERED: ACETAMINOPHEN TAB 325 MG TAB PO PRN (16:51)
[2021-03-21] MEDS ORDERED: NON FORMULARY DRUG (Glucerna Shake 1 CAN Liquid) PO SCH (17:30)
[2021-03-21 20:15] LABS: Glucose,Whole Blood 202 mg/dL (75-99)
[2021-03-21] MEDS: allopurinoL 100 MG TAB PO SCH (21:14)
[2021-03-21] MEDS: ATORVASTATIN 80 MG TAB PO SCH (21:14)
[2021-03-21] MEDS: TIMOLOL 0.5% OPHTH DROPS 5 ML BTL BOTH EYES SCH (21:15)
[2021-03-21] MEDS: BRIMONIDINE TARTRATE 0.2% DROPS 5 ML BTL BOTH EYES SCH (21:15)
[2021-03-21] MEDS: INSULIN DETEMIR (LEVEMIR) 100 UNIT/ML SYR SQ SCH (21:15)
[2021-03-21] MEDS: INSULIN ASPART (NovoLOG) 100 UNIT/ML VIAL SQ SCH (21:26)
--- NOTE | 2021-03-21 22:20 | P.HPIM ---
History of Present Illness H&P Date: 03/21/21 Chief Complaint: Increased weakness Patient is a 75-year-old male with a known history of chronic CHF with systolic dysfunction ejection fraction 20%, ischemic cardiomyopathy, hypertension, hyperlipidemia, BPH, diabetes type 2, chronic kidney disease stage IV and multiple other medical problems including prostate cancer with surgery in 2007 presents to ER due to poor oral intake. Patient is currently at [facility]. Patient was brought in the hospital due to failure to thrive. Patient apparently has not been eating or drinking. Patient is more lethargic than usual. Was sent to ER by EMS. Patient is a poor historian otherwise. Patient was recently discharged from the hospital on 03/16/2021 was admitted with acute on chronic CHF with systolic dysfunction. Ejection fraction 20% and also valvular heart disease. Patient was diuresed well and was discharged to [facility]. Patient was also found to have elevated troponin level. Maximal medical therapy was recommended. Patient has been afebrile. No complaints of chest pain. No leg swelling. No cough or sputum production. No nausea vomiting abdominal pain or diarrhea. Chest x-ray showed findings are suggestive of CHF. Underlying infectious intermittent process is not excluded. EKG showed normal sinus rhythm. Laboratory showed WBC 7.5 hemoglobin 10.0 MCV 103.4 and platelets 110 Sodium 149 potassium 3.6, BUN 15 creatinine 2.06 and blood sugar is 146 Calcium 8.3 magnesium 2.4 Troponin 0 0.129 Albumin 2.6 and TSH 2.05 UA negative for infection. Review of Systems Complete review of systems could not be obtained from the patient., Except as per HPI. Past Medical History Past Medical History: Cancer, Diabetes Mellitus, Hyperlipidemia, Hypertension, Prostate Disorder, Renal Disease Additional Past Medical History / Comment(s): Prostate cancer with surgery in 06 05, Patient states he has issues with his kidney's and has been seeing doctor Mason since August 2018. does not wangt to do dialysis History of Any Multi-Drug Resistant Organisms: None Reported Past Surgical History: Orthopedic Surgery, Prostate Surgery Additional Past Surgical History / Comment(s): RIGHT ANKLE 2009, Bilateral Cataract 2016, Colonoscopy August 2018, Prostate surgery 2007 Past Anesthesia/Blood Transfusion Reactions: No Reported Reaction Past Psychological History: No Psychological Hx Reported Smoking Status: Never smoker Past Alcohol Use History: Rare Past Drug Use History: None Reported - Past Family History Mother Family Medical History: No Reported History Additional Family Medical History / Comment(s): CHF Father Family Medical History: No Reported History Additional Family Medical History / Comment(s): Patient states father from a massive heart attack. Medications and Allergies Home Medications Medication Instructions Recorded Confirmed Type Aspirin 81 mg PO DAILY@89902/24/21 03/21/21 History Brimonidine Tartrate [Alphagan P 1 drop BOTH EYES BID@899,209902/24/21 03/21/21 History 0.2% Ophth Soln] Ferrous Gluconate 324 mg PO BID@899,209902/24/21 03/21/21 History Isosorbide Mononitrate ER [Imdur] 15 mg PO DAILY@89902/24/21 03/21/21 History Nephrovite 1 cap PO HS@209902/24/21 03/21/21 History Timolol 0.5% Ophth Soln [Timoptic 1 drop BOTH EYES BID@899,209902/24/21 03/21/21 History 0.5% Ophth Soln] allopurinoL [Zyloprim] 100 mg PO HS@209902/24/21 03/21/21 History calcitrioL [Rocaltrol] 0.25 mcg PO TUFR 02/24/21 03/21/21 History hydrALAZINE HCL [Apresoline] 10 mg PO BID@899,209902/24/21 03/21/21 History Acetaminophen Tab [Tylenol] 650 mg PO Q6HR PRN tab 02/28/21 03/21/21 Rx Atorvastatin [Lipitor] 80 mg PO HS@2099 tab 02/28/21 03/21/21 Rx Clopidogrel [Plavix] 75 mg PO DAILY@89903/12/21 03/21/21 History INSULIN LISPRO (HumaLOG) [humaLOG] See Protocol SQ ACHS@08,12,,03/12/21 03/21/21 History Nitroglycerin Sl Tabs [Nitrostat] 0.4 mg PO Q5M PRN 03/12/21 03/21/21 History Tamsulosin [Flomax] 0.4 mg PO DAILY@89903/12/21 03/21/21 History Insulin Glargine,Hum.rec.anlog 20 unit SQ HS@2099 #0 03/16/21 03/21/21 Rx [Semglee Pen] Furosemide [Lasix] 40 mg PO DAILY@0600 03/21/21 03/21/21 History Glucerna Shake 1 can PO AC-TID 03/21/21 03/21/21 History carvediloL [Coreg*] 12.5 mg PO BID@0900,2100 03/21/21 03/21/21 History Allergies Allergy/AdvReac Type Severity Reaction Status Date / Time Fish Containing Products Allergy Swelling Verified 03/21/21 09:42 [Fish] Sulfa (Sulfonamide Allergy Unknown Verified 03/21/21 09:42 Antibiotics) Childhood Physical Exam Vitals: Vital Signs Temp Pulse Pulse Resp BP BP Pulse Ox 03/21/21 16:32 98.0 F 99 21 144/94 100 03/21/21 15:03 74 17 136/89 100 03/21/21 13:55 75 17 128/78 93 L 03/21/21 11:40 78 17 150/95 99 03/21/21 11:24 20 03/21/21 10:25 69 17 148/81 100 03/21/21 08:54 97.9 F 74 18 136/84 100 Intake and Output 03/21/21 03/21/21 03/21/21 06:59 14:59 22:59 Other: Weight 120.7 kg 60 kg PHYSICAL EXAMINATION: Patient is lying in the bed comfortably, no acute distress, awake alert , Lethargic drowsy. Slow to respond... HEENT: Normocephalic. Neck is supple. Pupils reactive. Nostrils clear. Oral cavity is moist. Ears reveal no drainage. Neck reveals no JVD, carotid bruits, or thyromegaly. CHEST EXAMINATION: Trachea is central. Symmetrical expansion. Lung cannon clear to auscultation and percussion. CARDIAC: Normal S1, S2 with no gallops. + murmur ABDOMEN: Soft. Bowel sounds normal. No organomegaly. No abdominal bruits. Extremities: reveal no edema. No clubbing or cyanosis Neurologically awake, alert, oriented x3 .Able to move extremities while in bed. Generalized weakness. . No focal deficits noted Skin: No rash or skin lesions. Psychiatric: Coperative. Could not be assisted completely. Musculoskeletal: No joint swelling or deformity. Results CBC & Chem 7: 03/21/21 09:22 03/21/21 09:22 Labs: Abnormal Lab Results - Last 24 Hours (Table) 03/21/21 03/21/21 03/21/21 Range/Units 09:22 09:22 09:22 RBC 3.01 L (4.30-5.90) m/uL Hgb 10.0 L (13.0-17.5) gm/dL Hct 31.1 L (39.0-53.0) % MCV 103.4 H (80.0-100.0) fL RDW 16.3 H (11.5-15.5) % Plt Count 110 L (150-450) k/uL Lymphocytes # 0.7 L (1.0-4.8) k/uL PT 13.3 H (9.0-12.0) sec INR 1.3 H (<1.2) Sodium 149 H (137-145) mmol/L Chloride 116 H (98-107) mmol/L BUN 50 H (9-20) mg/dL Creatinine 2.06 H (0.66-1.25) mg/dL Glucose 146 H (74-99) mg/dL POC Glucose (mg/dL) (75-99) mg/dL Calcium 8.3 L (8.4-10.2) mg/dL Magnesium 2.4 H (1.6-2.3) mg/dL Troponin I (0.000-0.034) ng/mL Total Protein 5.5 L (6.3-8.2) g/dL Albumin 2.6 L (3.5-5.0) g/dL Urine Protein (Negative) Amorphous Sediment (None) /hpf 03/21/21 03/21/21 03/21/21 Range/Units 09:22 10:25 16:44 RBC (4.30-5.90) m/uL Hgb (13.0-17.5) gm/dL Hct (39.0-53.0) % MCV (80.0-100.0) fL RDW (11.5-15.5) % Plt Count (150-450) k/uL Lymphocytes # (1.0-4.8) k/uL PT (9.0-12.0) sec INR (<1.2) Sodium (137-145) mmol/L Chloride (98-107) mmol/L BUN (9-20) mg/dL Creatinine (0.66-1.25) mg/dL Glucose (74-99) mg/dL POC Glucose (mg/dL) 129 H (75-99) mg/dL Calcium (8.4-10.2) mg/dL Magnesium (1.6-2.3) mg/dL Troponin I 0.129 H* (0.000-0.034) ng/mL Total Protein (6.3-8.2) g/dL Albumin (3.5-5.0) g/dL Urine Protein 1+ H (Negative) Amorphous Sediment Occasional H (None) /hpf 03/21/21 Range/Units 20:13 RBC (4.30-5.90) m/uL Hgb (13.0-17.5) gm/dL Hct (39.0-53.0) % MCV (80.0-100.0) fL RDW (11.5-15.5) % Plt Count (150-450) k/uL Lymphocytes # (1.0-4.8) k/uL PT (9.0-12.0) sec INR (<1.2) Sodium (137-145) mmol/L Chloride (98-107) mmol/L BUN (9-20) mg/dL Creatinine (0.66-1.25) mg/dL Glucose (74-99) mg/dL POC Glucose (mg/dL) 202 H (75-99) mg/dL Calcium (8.4-10.2) mg/dL Magnesium (1.6-2.3) mg/dL Troponin I (0.000-0.034) ng/mL Total Protein (6.3-8.2) g/dL Albumin (3.5-5.0) g/dL Urine Protein (Negative) Amorphous Sediment (None) /hpf Assessment and Plan Assessment: Poor oral intake and failure to thrive. Acute on chronic kidney disease stage III. Baseline creatinine 1.2. 2.06 on admission. Hypernatremia due to dehydration volume depletion. Chronic CHF with systolic dysfunction ejection fraction 20% Valvular heart disease Ischemic cardiomyopathy Recent non-ST elevated LA conservative management as per cardiology Elevated troponin level likely with acute kidney injury and demand ischemia. Severe protein calorie malnutrition Anemia of chronic disease Diabetes type 2 insulin-dependent Moderate pulmonary hypertension Depression History of prostate cancer with surgery in 2007 DVT prophylaxis with heparin subcu Plan: Patient will be continued on gentle IV hydration. IV fluids will be changed to D5 water at 50 cc/h and monitor respiratory status. Encourage oral intake. Lasix is on hold. Continue with her home medications and follow-up closely. PT OT consult. Current CODE STATUS is DNR/DNI. Prognosis poor at this time due to limited oral intake and multiple comorbid conditions. Time with Patient: Greater than 30
[2021-03-21] MEDS: DEXTROSE 10% IN WATER 500 ML in EMPTY BAG 1 BAG IV SCH (23:10)
[2021-03-21] MEDS: HEPARIN SODIUM,PORCINE/PF 5,000 UNIT/0.5 ML SYRINGE SQ SCH (23:40)
[2021-03-22 06:17] LABS: Glucose,Whole Blood 249 mg/dL (75-99)
[2021-03-22] MEDS: INSULIN ASPART (NovoLOG) 100 UNIT/ML VIAL SQ SCH ×4 (06:37→22:32)
[2021-03-22 07:34] LABS: Potassium 3.8 mmol/L (3.5-5.1)
[2021-03-22 07:36] LABS: Anisocytosis Slight; Basophils % (A) 0 %; Eosinophils # (A) 0.1 k/uL (0-0.7); Eosinophils % (A) 1 %; HCT 32.3 % (39.0-53.0); HGB 10.3 gm/dL (13.0-17.5); Hypochromasia Marked; Lymphocytes # (A) 0.7 k/uL (1.0-4.8); Lymphocytes % (A) 9 %; MCH 33.8 pg (25.0-35.0); MCV 105.7 fL (80.0-100.0); Macrocytosis Moderate; Mean Platelet Volume 9.7; Monocytes # (A) 0.5 k/uL (0-1.0); Monocytes % (A) 7 %; Neutrophils # (A) 6.2 k/uL (1.3-7.7); Neutrophils % (A) 81 %; Platelet Count 119 k/uL (150-450); Poikilocytosis Slight; RBC 3.06 m/uL (4.30-5.90); RDW 16.3 % (11.5-15.5); WBC 7.6 k/uL (3.8-10.6)
--- NOTE | 2021-03-22 07:41 | XR ---
EXAMINATION TYPE: XR chest 1V DATE OF EXAM: 03/22/2021 COMPARISON: 03/21/2021 HISTORY: Congestive heart failure TECHNIQUE: Single frontal view of the chest is obtained. FINDINGS: Heart size is enlarged. Small left and tiny right pleural effusions. Perihilar and interst itial airspace opacities are suggestive of edema. There are patchy bibasilar infrahilar airspace opac ities. No pneumothorax. Atherosclerotic aorta. Overlying leads. IMPRESSION: 1. Stable findings suggestive of congestive heart failure. 2. Mild bibasilar infrahilar airspace opacities. These may represent atelectasis or developing pneumo [place]. Findings are stable.
[2021-03-22] MEDS: ASPIRIN 81 MG PO SCH (08:44)
[2021-03-22] MEDS: CLOPIDOGREL 75 MG TAB PO SCH (08:44)
[2021-03-22] MEDS: HEPARIN SODIUM,PORCINE/PF 5,000 UNIT/0.5 ML SYRINGE SQ SCH ×2 (08:44→17:48)
[2021-03-22] MEDS: ISOSORBIDE MONONITRATE ER 15 MG TAB PO SCH (08:45)
[2021-03-22] MEDS: TAMSULOSIN 0.4 MG CAP.ER.24H PO SCH (08:45)
[2021-03-22] MEDS: BRIMONIDINE TARTRATE 0.2% DROPS 5 ML BTL BOTH EYES SCH ×2 (08:45→22:32)
[2021-03-22] MEDS: TIMOLOL 0.5% OPHTH DROPS 5 ML BTL BOTH EYES SCH ×2 (08:45→20:50)
[2021-03-22 11:48] LABS: Glucose,Whole Blood 210 mg/dL (75-99)
[2021-03-22] MEDS: MORPHINE SULFATE 2 MG/ML SYRINGE IVP PRN ×2 (15:23→23:30)
[2021-03-22] MEDS: DEXTROSE 10% IN WATER 500 ML in EMPTY BAG 1 BAG IV SCH (15:33)
[2021-03-22 16:38] LABS: Glucose,Whole Blood 200 mg/dL (75-99)
--- NOTE | 2021-03-22 16:48 | P.PN ---
Subjective Progress Note Date: 03/22/21 This is a 77-year-old gentleman who is a recent NSTEMI who chose conservative management and was discharged to subacute rehab.Post [place], patient returned and discharged from the hospital on 03/12 to return to subacute rehab. with failure to thrive, severe protein calorie malnutrition, acute on chronic renal failure, acute on chronic systolic CHF and multiple other medical issues. Dr. Swartz had in depth discussion with who wished to pursue palliative care and hospice as needed. Patient has had minimal to no oral intake in many weeks. Continues to have zero intake. Patient is grayish in color ,currently having multiple periods of apnea lasting greater than 15 seconds, Prakash sawyer, restless, panting, pausing, restlessness, knees cold, not yet mottled and is appropriate for [facility] hospice. Hospice consulted. Objective - Vital Signs Vital signs: Vital Signs Temp 97.5 F L 03/22/21 15:18 Pulse 78 03/22/21 15:18 Resp 30 H 03/22/21 15:18 BP 123/83 03/22/21 15:18 Pulse Ox 100 03/22/21 15:18 Intake & Output 03/21/21 03/22/21 03/22/21 18:59 06:59 18:59 Intake Total 400 Balance 400 Weight 60 kg 58.5 kg Intake: Intake, IV Titration 340 Amount Dextrose 10% in Water 500 240 ml In Empty Bag 1 bag @ 40 mls/hr IV .[id number] [facility] Rx#:[id number] Sodium Chloride 0.9% 1, 100 000 ml @ 50 mls/hr IV . Q20H [facility] Rx#:[id number] Oral 60 Other: # Voids 3 2 - Exam - Exam PHYSICAL EXAM: VITAL SIGNS: As above GENERAL: A & O X 1, lethargic, restless, fidgety HEENT: Conjunctivae normal. eyes normal. Oral mucosa dry NECK: Supple, No JVD. CARDIOVASCULAR: S1, S2 regular. Systolic murmur RESPIRATION: Normal, labored , Prakash Sawyer. Apnea periods greater than 15 seconds ABDOMEN: Soft, nondistended, nontender . No guarding. no masses palpable. Bowel sounds hypoactive LEGS: No edema. no swelling. No calf tenderness. NERVOUS SYSTEM: Unable to fully assess, given patient's current condition. Generalized weakness. Skin: Dum[place], cool to cold, no mottling - Labs CBC & Chem 7: 03/22/21 06:31 03/22/21 06:31 Labs: Abnormal Lab Results - Last 24 Hours (Table) 03/21/21 03/21/21 03/22/21 Range/Units 16:44 20:13 06:15 RBC (4.30-5.90) m/uL Hgb (13.0-17.5) gm/dL Hct (39.0-53.0) % MCV (80.0-100.0) fL RDW (11.5-15.5) % Plt Count (150-450) k/uL Lymphocytes # (1.0-4.8) k/uL Sodium (137-145) mmol/L Chloride (98-107) mmol/L BUN (9-20) mg/dL Creatinine (0.66-1.25) mg/dL Glucose (74-99) mg/dL POC Glucose (mg/dL) 129 H 202 H 249 H (75-99) mg/dL Calcium (8.4-10.2) mg/dL 03/22/21 03/22/21 03/22/21 Range/Units 06:31 06:31 11:47 RBC 3.06 L (4.30-5.90) m/uL Hgb 10.3 L (13.0-17.5) gm/dL Hct 32.3 L (39.0-53.0) % MCV 105.7 H (80.0-100.0) fL RDW 16.3 H (11.5-15.5) % Plt Count 119 L (150-450) k/uL Lymphocytes # 0.7 L (1.0-4.8) k/uL Sodium 146 H (137-145) mmol/L Chloride 115 H (98-107) mmol/L BUN 49 H (9-20) mg/dL Creatinine 1.92 H (0.66-1.25) mg/dL Glucose 230 H (74-99) mg/dL POC Glucose (mg/dL) 210 H (75-99) mg/dL Calcium 8.0 L (8.4-10.2) mg/dL Assessment and Plan Assessment: Severe protein calorie malnutrition, BMI 22.4 Failure to thrive, multifactorial, including the above and #1 Hypernatremia secondary to dehydration, volume depletion Anemia of chronic kidney disease Thrombocytopenia, evaluated by oncology/hematology last visit, bone marrow biopsy pending OP. Chronic systolic CHF Chronic renal failure stage IV Elevated troponins secondary to recent NSTEMI, conservative management Diabetes mellitus, hyperglycemic, long-acting insulin increased Ischemic cardiomyopathy, EF less than 20% Moderate pulmonary hypertension Multivalvular disease Depression Plan: Continue on current medication regime ,monitoring and symptomatic treatment. Patient is appropriate for comfort care/ hospice. Hospice consulted for [facility] hospice. Further recommendations to follow. Prognosis poor given multiple complex medical issues. The impression and plan of care has been dictated as directed. : I performed a history and examination of this patient, discussed the same with the dictator. I agree with the dictator's note ,documented as a scribe. Any additional findings or plans will be noted.
[2021-03-22 20:14] LABS: Glucose,Whole Blood 145 mg/dL (75-99)
[2021-03-22] MEDS: INSULIN DETEMIR (LEVEMIR) 100 UNIT/ML SYR SQ SCH (20:49)
[2021-03-22] MEDS ORDERED: INSULIN ASPART (NovoLOG) 100 UNIT/ML VIAL SQ SCH (21:04)
[2021-03-22] MEDS: allopurinoL 100 MG TAB PO SCH (22:31)
[2021-03-22] MEDS: ATORVASTATIN 80 MG TAB PO SCH (22:32)
[2021-03-23] MEDS: HEPARIN SODIUM,PORCINE/PF 5,000 UNIT/0.5 ML SYRINGE SQ SCH ×2 (00:21→08:46)
[2021-03-23 05:40] VITALS: RESP 16
[2021-03-23] MEDS: DEXTROSE 10% IN WATER 500 ML in EMPTY BAG 1 BAG IV SCH ×2 (06:20→12:04)
[2021-03-23 06:28] LABS: Glucose,Whole Blood 238 mg/dL (75-99)
[2021-03-23] MEDS: INSULIN ASPART (NovoLOG) 100 UNIT/ML VIAL SQ SCH ×2 (06:28→12:03)
[2021-03-23] MEDS: TIMOLOL 0.5% OPHTH DROPS 5 ML BTL BOTH EYES SCH (08:45)
[2021-03-23] MEDS: BRIMONIDINE TARTRATE 0.2% DROPS 5 ML BTL BOTH EYES SCH (08:45)
[2021-03-23] MEDS: ASPIRIN 81 MG PO SCH (08:46)
[2021-03-23] MEDS: CLOPIDOGREL 75 MG TAB PO SCH (08:46)
[2021-03-23] MEDS: ISOSORBIDE MONONITRATE ER 15 MG TAB PO SCH (08:46)
[2021-03-23] MEDS: TAMSULOSIN 0.4 MG CAP.ER.24H PO SCH (08:46)
[2021-03-23 08:58] VITALS: BP 146/89; PULSE 72; TEMP 97.6
[2021-03-23 11:35] LABS: Glucose,Whole Blood 300 mg/dL (75-99)
[2021-03-23] MEDS: MORPHINE SULFATE 2 MG/ML SYRINGE IVP PRN (12:01)
--- NOTE | 2021-03-23 13:23 | P.DS ---
Providers Date of admission: 03/21/21 12:09 Expected date of discharge: 03/23/21 Attending physician: Maikel Swartz Primary care physician: Maikel Swartz Hospital Course: Final Diagnoses: Severe protein calorie malnutrition, BMI 22.4 Failure to thrive, multifactorial, including the above and #1 Hypernatremia secondary to dehydration, volume depletion Anemia of chronic kidney disease Thrombocytopenia, evaluated by oncology/hematology last visit, bone marrow biopsy pending OP. Chronic systolic CHF Chronic renal failure stage IV Elevated troponins secondary to recent NSTEMI, conservative management Diabetes mellitus, hyperglycemic, long-acting insulin increased Ischemic cardiomyopathy, EF less than 20% Moderate pulmonary hypertension Multivalvular disease Depression Code, no CPR, no intubation Comfort care, hospice,[facility] Hospital course:This is a 77-year-old gentleman who is a recent NSTEMI who chose conservative management and was discharged to subacute rehab.Post [place], patient returned and discharged from the hospital on 03/12 to return to subacute rehab. with failure to thrive, severe protein calorie malnutrition, acute on chronic renal failure, acute on chronic systolic CHF and multiple other medical issues. Dr. Swartz had in depth discussion with who wished to pursue palliative care and hospice as needed. Patient has had minimal to no oral intake in many weeks. Continues to have zero intake. Patient is grayish in color ,currently having multiple periods of apnea lasting greater than 15 seconds, Prakash rodriguez, restless, panting, pausing, restlessness, knees cold, not yet mottled and is appropriate for [facility] hospice. Hospice consulted. Patient continued to decline overnight, now meets criteria for [facility] hospice. Patient will be discharged to open up to [facility] hospice, pending 's arrival/signature. Prognosis poor given multiple complex medical issues. The impression and plan of care has been dictated as directed. : I performed a history and examination of this patient, discussed the same with the dictator. I agree with the dictator's note ,documented as a scribe. Any additional findings or plans will be noted. Patient Condition at Discharge: Stable Plan - Discharge Summary Discharge Rx Participant: No New Discharge Prescriptions: No Action calcitrioL [Rocaltrol] 0.25 mcg PO TUFR Brimonidine Tartrate [Alphagan P 0.2% Ophth Soln] 1 drop BOTH EYES BID@0900,2100 allopurinoL [Zyloprim] 100 mg PO HS@2100 Aspirin 81 mg PO DAILY@0900 Acetaminophen Tab [Tylenol] 650 mg PO Q6HR PRN tab PRN Reason: Mild Pain Or Fever > 100.5 INSULIN LISPRO (HumaLOG) [humaLOG] See Protocol SQ ACHS@08,12,, Tamsulosin [Flomax] 0.4 mg PO DAILY@0900 Clopidogrel [Plavix] 75 mg PO DAILY@0900 Nitroglycerin Sl Tabs [Nitrostat] 0.4 mg PO Q5M PRN PRN Reason: Chest Pain Glucerna Shake 1 can PO AC-TID Timolol 0.5% Ophth Soln [Timoptic 0.5% Ophth Soln] 1 drop BOTH EYES BID@899,2099 hydrALAZINE HCL [Apresoline] 10 mg PO BID@899,2099 Isosorbide Mononitrate ER [Imdur] 15 mg PO DAILY@0900 Ferrous Gluconate 324 mg PO BID@899,2099 Nephrovite 1 cap PO HS@2099 Atorvastatin [Lipitor] 80 mg PO HS@2099 tab Insulin Glargine,Hum.rec.anlog [Semglee Pen] 20 unit SQ HS@2099 #0 Furosemide [Lasix] 40 mg PO DAILY@0600 carvediloL [Coreg*] 12.5 mg PO BID@899,2099 Discharge Medication List Aspirin 81 mg PO DAILY@0900 02/24/21 [History] Brimonidine Tartrate [Alphagan P 0.2% Ophth Soln] 1 drop BOTH EYES BID@0900,209902/24/21 [History] Ferrous Gluconate 324 mg PO BID@899,209902/24/21 [History] Isosorbide Mononitrate ER [Imdur] 15 mg PO DAILY@89902/24/21 [History] Nephrovite 1 cap PO HS@209902/24/21 [History] Timolol 0.5% Ophth Soln [Timoptic 0.5% Ophth Soln] 1 drop BOTH EYES BID@0900,209902/24/21 [History] allopurinoL [Zyloprim] 100 mg PO HS@209902/24/21 [History] calcitrioL [Rocaltrol] 0.25 mcg PO TUFR 02/24/21 [History] hydrALAZINE HCL [Apresoline] 10 mg PO BID@0900,2100 02/24/21 [History] Acetaminophen Tab [Tylenol] 650 mg PO Q6HR PRN tab 02/28/21 [Rx] Atorvastatin [Lipitor] 80 mg PO HS@2100 tab 02/28/21 [Rx] Clopidogrel [Plavix] 75 mg PO DAILY@0900 03/12/21 [History] INSULIN LISPRO (HumaLOG) [humaLOG] See Protocol SQ ACHS@08,12,,03/12/21 [History] Nitroglycerin Sl Tabs [Nitrostat] 0.4 mg PO Q5M PRN 03/12/21 [History] Tamsulosin [Flomax] 0.4 mg PO DAILY@0903/12/21 [History] Insulin Glargine,Hum.rec.anlog [Semglee Pen] 20 unit SQ HS@2100 #0 03/16/21 [Rx] Furosemide [Lasix] 40 mg PO DAILY@0600 03/21/21 [History] Glucerna Shake 1 can PO AC-TID 03/21/21 [History] carvediloL [Coreg*] 12.5 mg PO BID@0900,2100 03/21/21 [History] Follow up Appointment(s)/Referral(s): Richard Spencer MD [STAFF PHYSICIAN] - 1-2 days Discharge Disposition: DISCH TO [facility]
== END 2021-03-23 12:42 | disposition hospice, inpatient (51) | DRG 280 ==
LOC: EC 08:53 → 3SCARD 12:09
PROVIDERS: ADMIT Family Medicine; ATTEND Family Medicine
DX: I13.0 Hypertensive heart and chronic kidney disease with heart failure and stage 1 through stage 4 chronic kidney disease, or unspecified chronic kidney disease (principal); E43 Unspecified severe protein-calorie malnutrition; I21.4 Non-ST elevation (NSTEMI) myocardial infarction; I50.23 Acute on chronic systolic (congestive) heart failure; E87.0 Hyperosmolality and hypernatremia; I24.8 Other forms of acute ischemic heart disease; N17.9 Acute kidney failure, unspecified; N18.4 Chronic kidney disease, stage 4 (severe); E11.22 Type 2 diabetes mellitus with diabetic chronic kidney disease; E78.5 Hyperlipidemia, unspecified; E86.0 Dehydration; D63.1 Anemia in chronic kidney disease; F03.90 Unspecified dementia, unspecified severity, without behavioral disturbance, psychotic disturbance, mood disturbance, and anxiety; F32.9 Major depressive disorder, single episode, unspecified; I27.20 Pulmonary hypertension, unspecified; R62.7 Adult failure to thrive; Z66 Do not resuscitate; Z51.5 Encounter for palliative care; N40.0 Benign prostatic hyperplasia without lower urinary tract symptoms; I25.5 Ischemic cardiomyopathy; D53.9 Nutritional anemia, unspecified; H26.9 Unspecified cataract; Z79.4 Long term (current) use of insulin; Z79.02 Long term (current) use of antithrombotics/antiplatelets; I25.2 Old myocardial infarction; Z79.82 Long term (current) use of aspirin; Z85.46 Personal history of malignant neoplasm of prostate; Z82.49 Family history of ischemic heart disease and other diseases of the circulatory system; Z79.899 Other long term (current) drug therapy
CPT/HCPCS: 36415; 71045; 80048; 80053; 81001; 82140; 83605; 83735; 84443; 84484; 85025; 85610; 85730; 93005; 96374; 99285

== ENCOUNTER 2021-03-23 10:38 | Inpatient (IN) | payer MEDICAID ==
[2021-03-23] MEDS ORDERED: HALOPERIDOL LACTATE 5 MG/ML 1 ML VIAL IM PRN (10:45)
[2021-03-23] MEDS ORDERED: MORPHINE SULFATE (100 MG/2 ML) 100 MG in SODIUM CHLORIDE 0.9% 100 ML IV SCH (10:45)
[2021-03-23] MEDS ORDERED: ATROPINE OPHTH SOLN 1% 5ML BTL SUBLINGUAL PRN (10:45)
[2021-03-23] MEDS ORDERED: GLYCOPYRROLATE 0.2 MG/ML 2 ML VIAL IVP PRN (10:45)
[2021-03-23] MEDS ORDERED: MORPHINE SULFATE 4 MG/ML SYRINGE IV PRN (10:45)
[2021-03-23] MEDS ORDERED: SCOPOLAMINE 1.5MG/72HR PATCH TRANSDERM SCH (10:45)
[2021-03-23] MEDS ORDERED: LORazepam 2 MG/ML INJ IV PRN (10:45)
[2021-03-23 16:36] LABS: Glucose,Whole Blood 183 mg/dL (75-99)
[2021-03-23 19:44] VITALS: PULSE 73
[2021-03-24 04:22] VITALS: RESP 17
--- NOTE | 2021-03-24 13:33 | P.DS ---
Providers Date of admission: 03/23/21 12:52 Expected date of discharge: 03/24/21 Attending physician: Maikel Swartz Primary care physician: Maikel Swartz Hospital Course: Covering for Dr. Swartz Final diagnosis Severe protein calorie malnutrition, BMI 22.4 Failure to thrive, multifactorial, including the above and #1 Hypernatremia secondary to dehydration, volume depletion Anemia of chronic kidney disease Thrombocytopenia, evaluated by oncology/hematology last visit, bone marrow biopsy pending OP. Chronic systolic CHF Chronic renal failure stage IV Elevated troponins secondary to recent NSTEMI, conservative management Diabetes mellitus, hyperglycemic, long-acting insulin increased Ischemic cardiomyopathy, EF less than 20% Moderate pulmonary hypertension Multivalvular disease Depression Code, no CPR, no intubation Comfort care, hospice,[facility] Discharge disposition Patient has . Please refer to nursing documentation an accurate time of . Hospital course This is a 77-year-old gentleman who is a recent NSTEMI who chose conservative management and was discharged to subacute rehab.[place], patient returned and discharged from the hospital on 03/12 to return to subacute rehab. with failure to thrive, severe protein calorie malnutrition, acute on chronic renal failure, acute on chronic systolic CHF and multiple other medical issues. Dr. Swartz had in depth discussion with who wished to pursue palliative care and hospice as needed. Patient has had minimal to no oral intake in many weeks. Continues to have zero intake. Patient is grayish in color ,currently having multiple periods of apnea lasting greater than 15 seconds, Prakash rodriguez, restless, panting, pausing, restlessness, knees cold, not yet mottled and is appropriate for [facility] hospice. Hospice consulted. Patient was signed on to [facility] and made GIP with comfort measures only and family at the bedside. Patient's prognosis is extremely poor given multiple complex medical issues. Patient has . Please refer to previous documentation from Dr. Maikel Swartz for further HPI Patient Condition at Discharge: Poor Plan - Discharge Summary New Discharge Prescriptions: No Action calcitrioL [Rocaltrol] 0.25 mcg PO TUFR Brimonidine Tartrate [Alphagan P 0.2% Ophth Soln] 1 drop BOTH EYES BID@0900,2100 allopurinoL [Zyloprim] 100 mg PO HS@2100 Aspirin 81 mg PO DAILY@0900 Acetaminophen Tab [Tylenol] 650 mg PO Q6HR PRN tab PRN Reason: Mild Pain Or Fever > 100.5 INSULIN LISPRO (HumaLOG) [humaLOG] See Protocol SQ ACHS@08,12,, Tamsulosin [Flomax] 0.4 mg PO DAILY@0900 Clopidogrel [Plavix] 75 mg PO DAILY@0900 Nitroglycerin Sl Tabs [Nitrostat] 0.4 mg PO Q5M PRN PRN Reason: Chest Pain Glucerna Shake 1 can PO AC-TID Timolol 0.5% Ophth Soln [Timoptic 0.5% Ophth Soln] 1 drop BOTH EYES BID@899,2099 hydrALAZINE HCL [Apresoline] 10 mg PO BID@899,2099 Isosorbide Mononitrate ER [Imdur] 15 mg PO DAILY@899 Ferrous Gluconate 324 mg PO BID@899,2099 Nephrovite 1 cap PO HS@2099 Atorvastatin [Lipitor] 80 mg PO HS@2099 tab Insulin Glargine,Hum.rec.anlog [Semglee Pen] 20 unit SQ HS@2099 #0 Furosemide [Lasix] 40 mg PO DAILY@599 carvediloL [Coreg*] 12.5 mg PO BID@899,2099 Discharge Medication List Aspirin 81 mg PO DAILY@0902/24/21 [History] Brimonidine Tartrate [Alphagan P 0.2% Ophth Soln] 1 drop BOTH EYES BID@00,209902/24/21 [History] Ferrous Gluconate 324 mg PO BID@899,209902/24/21 [History] Isosorbide Mononitrate ER [Imdur] 15 mg PO DAILY@89902/24/21 [History] Nephrovite 1 cap PO HS@209902/24/21 [History] Timolol 0.5% Ophth Soln [Timoptic 0.5% Ophth Soln] 1 drop BOTH EYES BID@00,209902/24/21 [History] allopurinoL [Zyloprim] 100 mg PO HS@209902/24/21 [History] calcitrioL [Rocaltrol] 0.25 mcg PO TUFR 02/24/21 [History] hydrALAZINE HCL [Apresoline] 10 mg PO BID@0900,209902/24/21 [History] Acetaminophen Tab [Tylenol] 650 mg PO Q6HR PRN tab 02/28/21 [Rx] Atorvastatin [Lipitor] 80 mg PO HS@2100 tab 02/28/21 [Rx] Clopidogrel [Plavix] 75 mg PO DAILY@0900 03/12/21 [History] INSULIN LISPRO (HumaLOG) [humaLOG] See Protocol SQ ACHS@08,12,17,21 03/12/21 [History] Nitroglycerin Sl Tabs [Nitrostat] 0.4 mg PO Q5M PRN 03/12/21 [History] Tamsulosin [Flomax] 0.4 mg PO DAILY@0903/12/21 [History] Insulin Glargine,Hum.rec.anlog [Semglee Pen] 20 unit SQ HS@2100 #0 03/16/21 [Rx] Furosemide [Lasix] 40 mg PO DAILY@0600 03/21/21 [History] Glucerna Shake 1 can PO AC-TID 03/21/21 [History] carvediloL [Coreg*] 12.5 mg PO BID@0900,209903/21/21 [History] Discharge Disposition: - Preliminary Cause of Preliminary Cause of : Failure to thrive, severe protein calorie malnutrition, chronic syst CHF
== END 2021-03-24 11:59 | disposition expired | DRG 951 ==
LOC: 3SCARD 12:52
PROVIDERS: ADMIT Family Medicine; ATTEND Family Medicine
DX: Z51.5 Encounter for palliative care (principal); E43 Unspecified severe protein-calorie malnutrition; I13.0 Hypertensive heart and chronic kidney disease with heart failure and stage 1 through stage 4 chronic kidney disease, or unspecified chronic kidney disease; E87.0 Hyperosmolality and hypernatremia; I50.22 Chronic systolic (congestive) heart failure; N18.4 Chronic kidney disease, stage 4 (severe); D63.1 Anemia in chronic kidney disease; E11.22 Type 2 diabetes mellitus with diabetic chronic kidney disease; E86.0 Dehydration; F32.9 Major depressive disorder, single episode, unspecified; I25.2 Old myocardial infarction; I25.5 Ischemic cardiomyopathy; I27.20 Pulmonary hypertension, unspecified; R62.7 Adult failure to thrive; Z68.22 Body mass index [BMI] 22.0-22.9, adult; E86.9 Volume depletion, unspecified; I27.22 Pulmonary hypertension due to left heart disease